=== PATIENT | female | born 1940 | race Caucasian/White ===

== ENCOUNTER 2017-09-18 06:24 | Observation (INO) | payer MEDICARE, BC ==
[2017-09-17 09:30] VITALS: BMI 26.2
[2017-09-18] MEDS ORDERED: PROPOFOL 20 ML ONE (07:13)
[2017-09-18] MEDS ORDERED: PROPOFOL 200 MG/20 ML VIAL ONE (12:02)
[2017-09-18] MEDS ORDERED: Furosemide 40 MG TAB PO PRN (14:11)
[2017-09-18] MEDS ORDERED: Loratadine 10 MG TAB PO PRN (14:11)
[2017-09-18] MEDS ORDERED: PROVENTIL INHALER 6.7 G (200 INHALATIONS) INH PRN (14:12)
--- NOTE | 2017-09-18 16:20 | EKG ---
Test Reason : POST CARDIOVERSION Blood Pressure : / mmHG Vent. Rate : 042 BPM Atrial Rate : 042 BPM P-R Int : 190 ms QRS Dur : 106 ms QT Int : 466 ms P-R-T Axes : 079 -44 045 degrees QTc Int : 389 ms Marked sinus bradycardia with Premature atrial complexes Left axis deviation Non-specific intra-ventricular conduction delay Nonspecific T wave abnormality Abnormal ECG Confirmed by ANANYA MERAZ ([id number]) on 09/18/2017 4:19:38 PM Referred By: JAYSON Confirmed By:ANANYA MERAZ
[2017-09-18] MEDS ORDERED: Rivaroxaban 10 MG TAB PO SCH (17:00)
[2017-09-18] MEDS ORDERED: INTEGRA PO SCH (21:00)
[2017-09-18] MEDS ORDERED: Gabapentin 300 MG CAP PO SCH (21:00)
[2017-09-19 04:17] VITALS: TEMP 98
[2017-09-19 08:18] VITALS: BP 127/67
[2017-09-19] MEDS ORDERED: Amiodarone 200 MG TAB PO SCH (09:00)
--- NOTE | 2017-09-20 13:51 | OP ---
PREPROCEDURE DIAGNOSIS: Atrial fibrillation. POSTPROCEDURE DIAGNOSIS: Sinus bradycardia. PROCEDURE: Successful synchronized cardioversion. DESCRIPTION OF PROCEDURE: The patient was sedated with propofol. The consent was discussed in the o ffice. Successful synchronized cardioversion was performed at 150 joules. IMPRESSION: 1. Successful synchronized cardioversion. 2. Patient did develop bradycardia and will be observed in the outpatient area.
--- NOTE | 2017-09-23 00:45 | DIS ---
DATE OF ADMISSION: 09/18/2017 DATE OF DISCHARGE: 09/19/2017 ADMITTING PHYSICIAN: Dr. Wilson. CONSULTING PHYSICIANS: None. REASON FOR ADMISSION: Persistent atrial fibrillation. FINAL DIAGNOSES: 1. Persistent atrial fibrillation. 2. Bradycardia. PROCEDURES: Cardioversion. DISCHARGE MEDICATIONS: 1. Albuterol sulfate 2 puffs q.6 hours as needed. 2. Amiodarone 200 mg every day. 3. Lasix 40 mg p.r.n. 4. Neurontin 300 mg at bedtime. 5. Claritin 10 mg p.r.n. 6. Protonix 40 mg daily. 7. Xarelto 20 mg daily. HOSPITAL COURSE: Ms. Tellez was admitted on 09/18/2017 to undergo elective cardioversion for atri al fibrillation. She was shocked once and postoperatively had bradycardia. She was admitted to [facility] overnight for monitoring. She had heart rates in the 40s and 50s overnight and her beta bloc kers were held up in her amiodarone. At the time of discharge, her heart rate was 50 beats per minut e and accelerating whenever she got out of bed. She was discharged in stable cardiac status with an event monitor and instructed to follow up in the office in 2-3 weeks. The patient understood and agr eed to plan of care.
== END 2017-09-19 12:20 | disposition home or self-care (01) ==
LOC: CCL 06:24 → 2SW 13:51
PROVIDERS: ADMIT Internal Medicine Cardiovascular Disease; ATTEND Internal Medicine Cardiovascular Disease
PROC: 5A2204Z Restoration of Cardiac Rhythm, Single (ICD-10-PCS; principal; 2017-09-18)
DX: I48.1 Persistent atrial fibrillation (principal); Z87.891 Personal history of nicotine dependence; Z82.49 Family history of ischemic heart disease and other diseases of the circulatory system
CPT/HCPCS: 92960; 93005; G0378; 93010; A4216; J2704

== ENCOUNTER 2019-02-27 13:03 | Inpatient (IN) | payer MEDICARE, BC ==
[2019-02-27] MEDS ORDERED: Ondansetron PF 4 MG/2 ML Vial SLOW IVP PRN (13:53)
[2019-02-27] MEDS ORDERED: Milk Of Magnesia 30 ML UDCUP PO PRN (13:53)
[2019-02-27] MEDS ORDERED: Diltiazem HCl 125 MG, Admixture Fee 1 EACH in Sodium Chloride 0.9% 100 ML IVPB SCH (14:00)
[2019-02-27] MEDS ORDERED: Furosemide 40 MG/4 ML VIAL SLOW IVP SCH (14:00)
[2019-02-27] MEDS: Famotidine 20 MG TAB PO SCH (20:27)
[2019-02-27] MEDS ORDERED: Famotidine/PF 20 mg/2ml Vial SLOW IVP SCH (21:00)
[2019-02-28 04:11] LABS: ALT (SGPT) 19 U/L (8-55); AST (SGOT) 10 U/L (5-34); Albumin 3.2 g/dL (3.4-4.8); Alkaline Phosphatase 93 U/L (40-110); Anion Gap 11 mmol/L (10-20); BUN (Urea Nitrogen) 8 mg/dL (9.8-20.1); Bilirubin, Total 0.4 mg/dL (0.2-1.2); Calc. Creatinine Clearance 80 mL/min (70-130); Calcium 9.4 mg/dL (7.8-10.44); Carbon Dioxide 33 mmol/L (23-31); Chloride 93 mmol/L (98-107); Estimated GFR-MDRD Greater than 90; Globulin 2.9 g/dL (2.4-3.5); Glucose 168 mg/dL (83-110); Potassium 3.6 mmol/L (3.5-5.1); Protein, Total 6.1 g/dL (6.0-8.3); Sodium 133 mmol/L (136-145)
[2019-02-28 04:32] LABS: #Eosinphils 0.1 thou/uL (0.0-0.7); #Lymphocytes 0.9 thou/uL (1.20-3.40); #Monocytes 0.5 thou/uL (0.11-0.59); #Neutrophils 4.2 thou/uL (1.40-6.50); %Basophils 0.1 % (0.0-1.0); %Lymphocytes 15.8 % (21.0-51.0); %Monocytes 8.4 % (0.0-10.0); %Neutrophils 74.7 % (42.0-75.0); Hemoglobin 14.7 g/dL (12.0-16.0); Mean Corpuscular HGB CONC 32.3 g/dL (32.0-36.0); Mean Corpuscular Hemoglobin 28.2 pg (27.0-31.0); Mean Corpuscular Volume 87.3 fL (78.0-98.0); Mean Platelet Volume 12.8 fL (7.4-10.4); Platelet Count 81 thou/uL (130-400); Platelet Morphology Comment Appears Decreased; RBC Distribution Width 12.7 % (11.5-14.5); White Blood Cell (WBC) Count 5.6 thou/uL (4.8-10.8)
[2019-02-28] MEDS: Famotidine 20 MG TAB PO SCH ×2 (08:19→20:28)
[2019-02-28] MEDS ORDERED: FLU VACC TS2019-20(65YR UP)/PF 180 MCG/0.5 ML SYRINGE IM ONE (09:00)
[2019-02-28] MEDS: Furosemide 40 MG/4 ML VIAL SLOW IVP SCH ×2 (09:47→13:41)
[2019-02-28] MEDS: Gabapentin 300 MG CAP PO SCH (09:47)
--- NOTE | 2019-02-28 10:11 | PDOC.CPN ---
- Subjective Date: 02/28/19 Time: 10:10 Interval history: Still SOB with orthopnea and cough. Edema improved. - Review of Systems General: denies: fever/chills, weight/appetite/sleep changes, night sweats, fatigue Respiratory: reports: cough, congestion, shortness of breath, exercise intolerance Cardiovascular: reports: orthopnea. denies: chest pain, palpitation, edema, paroxysmal nocturnal dyspnea Gastrointestinal: denies: nausea, vomiting, diarrhea, constipation, abd pain, GI bleeding Musculoskeletal: denies: pain, tenderness, stiffness, swelling, arthritis/ arthralgias Neurological: denies: numbness, syncope, seizure, weakness - Objective Allergies/Adverse Reactions: Allergies Allergy/AdvReac Type Severity Reaction Status Date / Time No Known Allergies Allergy Verified 02/27/19 14:17 Visit Medications: Current Medications Diltiazem HCl (Cardizem) 60 mg PO Q6H [facility] Last Admin: 02/28/19 09:47 Dose: 60 mg Famotidine (Pepcid) 20 mg PO BID [facility] Last Admin: 02/28/19 08:19 Dose: 20 mg Furosemide (Lasix) 40 mg SLOW IVP 0900,1400 [facility] Last Admin: 02/28/19 09:47 Dose: 40 mg Gabapentin (Neurontin) 300 mg PO QAM [facility] Last Admin: 02/28/19 09:47 Dose: 300 mg Diltiazem HCl 125 mg/ Sodium (Chloride) 125 mls @ 2.5 mls/hr IVPB INF [facility]; Protocol Magnesium Hydroxide (Milk Of Magnesium) 30 ml PO DAILYPRN PRN PRN Reason: Constipation Ondansetron HCl (Zofran) 4 mg SLOW IVP Q6H PRN PRN Reason: Nausea/Vomiting Rivaroxaban (Xarelto) 20 mg PO 0600 [facility] Sodium Chloride (Flush - Normal Saline) 10 ml IVF Q12HR [facility] Last Admin: 02/28/19 09:48 Dose: 10 ml Sodium Chloride (Flush - Normal Saline) 10 ml IVF PRN PRN PRN Reason: Saline Flush Vital Signs & Weight: Vital Signs Temp Pulse Resp BP Pulse Ox 02/28/19 08:00 97.7 F 86 20 110/70 93 L 02/28/19 03:37 97.4 F L 75 18 143/60 H 94 L 02/28/19 00:00 87 121/57 L Weight 152 lb - Physical Exam General: alert & oriented x3, no apparent distress HEENT: mucus membranes moist Neck: supple neck Cardiac: other (IRR IRR) Lungs: other (no wheezes; decreased BS and dull to bases bilaterally) Neuro: grossly intact Abdomen: unremarkable Extremities: other: (3+ bilateral BENNY) Skin: clear Musculoskeletal: no pain - Labs Result Diagrams: 02/28/19 03:26 02/28/19 03:26 - Telemetry Supraventricular conduction: atrial fibrillation - Assessment/Plan Assessment/Plan: 1. Persistent AF 2. Hx bradycardia post-DCCV 3. Recent atypical PNA 4. Acute on chronic diastolic CHF Continue diuresis. Recent ECHO done at [facility] with normal EF and diastolic dysfunction. Rate-control AF. Will consider repeat cardioversion as outpatient once respiratory status more stable. RG Pt seen and examined Doing better Plan is to wean off IV CCB and iuncrease PO CCB If still with symptoms, consider CV but may need pacer if CV done given previous bradycardia on amio and CCB
--- NOTE | 2019-02-28 12:26 | RAD ---
EXAM: Two views chest PROVIDED CLINICAL HISTORY: Cough due to bronchospasm COMPARISON: 02/02/2019. FINDINGS: There is consolidation seen at the right lung base which has increased when compared to the prior exa m. These findings are seen within the right lower lobe as well as involving the right middle lobe and may be related to multifocal pneumonia. This does obscure the right cardiac border. The left lung is clear. Pulmonary vasculature is within normal limits.. The osseous structures have a normal appearance. Vascular calcifications are seen in the thoracic aorta. IMPRESSION: Worsening parenchymal opacity in the right lower lobe and right middle lobe with consolidation noted on today's exam. These findings may be related to multifocal pneumonia. Follow-up to complete resolution is recommended..
[2019-03-01] MEDS: Rivaroxaban 10 MG TAB PO SCH (05:55)
[2019-03-01] MEDS: Famotidine 20 MG TAB PO SCH ×2 (10:31→20:20)
[2019-03-01] MEDS: Furosemide 40 MG/4 ML VIAL SLOW IVP SCH ×2 (10:32→14:11)
[2019-03-01] MEDS: Gabapentin 300 MG CAP PO SCH (10:32)
[2019-03-01] MEDS ORDERED: Potassium Chloride 20 MEQ TAB PO SCH (10:45)
--- NOTE | 2019-03-01 11:32 | PDOC.CPN ---
- Subjective Date: 03/01/19 Time: 11:30 - Review of Systems General: denies: fever/chills, weight/appetite/sleep changes, night sweats, fatigue Respiratory: reports: shortness of breath, exercise intolerance. denies: cough , congestion Cardiovascular: reports: edema, orthopnea Gastrointestinal: denies: nausea, vomiting, diarrhea, constipation, abd pain, GI bleeding Musculoskeletal: denies: pain, tenderness, stiffness, swelling, arthritis/ arthralgias Neurological: denies: numbness, syncope, seizure, weakness - Objective Allergies/Adverse Reactions: Allergies Allergy/AdvReac Type Severity Reaction Status Date / Time No Known Allergies Allergy Verified 02/27/19 14:17 Visit Medications: Current Medications Diltiazem HCl (Cardizem) 60 mg PO Q6H [facility] Last Admin: 03/01/19 10:33 Dose: 60 mg Famotidine (Pepcid) 20 mg PO BID [facility] Last Admin: 03/01/19 10:31 Dose: 20 mg Furosemide (Lasix) 40 mg SLOW IVP 0900,1400 [facility] Last Admin: 03/01/19 10:32 Dose: 40 mg Gabapentin (Neurontin) 300 mg PO QAM [facility] Last Admin: 03/01/19 10:32 Dose: 300 mg Cefepime HCl 2 gm/ Sodium (Chloride) 100 mls @ 200 mls/hr IVPB Q12HR [facility] Magnesium Hydroxide (Milk Of Magnesium) 30 ml PO DAILYPRN PRN PRN Reason: Constipation Ondansetron HCl (Zofran) 4 mg SLOW IVP Q6H PRN PRN Reason: Nausea/Vomiting Potassium Chloride (K-Dur) 20 meq PO NOW [facility] Stop: 03/01/19 13:00 Rivaroxaban (Xarelto) 20 mg PO 0600 [facility] Last Admin: 03/01/19 05:55 Dose: 20 mg Sodium Chloride (Flush - Normal Saline) 10 ml IVF Q12HR [facility] Last Admin: 03/01/19 10:34 Dose: 10 ml Sodium Chloride (Flush - Normal Saline) 10 ml IVF PRN PRN PRN Reason: Saline Flush Vital Signs & Weight: Vital Signs Temp Pulse Resp BP Pulse Ox 03/01/19 07:26 97.4 F L 77 20 115/56 L 94 L 03/01/19 03:07 98.1 F 83 16 126/61 95 03/01/19 00:00 82 116/62 Admit Weight 152 lb 8.958 oz Weight 147 lb 14.883 oz - Physical Exam General: alert & oriented x3, appears well HEENT: mucus membranes moist Neck: supple neck Cardiac: irregularly regular Lungs: no wheezes, decreased breath sounds Neuro: grossly intact Abdomen: unremarkable, soft Extremities: 2+ LE edema Skin: clear - Labs Result Diagrams: 02/28/19 03:26 02/28/19 03:26 - Telemetry Supraventricular conduction: atrial fibrillation - Assessment/Plan Assessment/Plan: 1. Persistent AF 2. Hx bradycardia post-DCCV 3. Recent atypical PNA 4. Acute on chronic diastolic CHF Still volume overloaded. Continue diuresis. Replace K+. CT chest pending. Off cardizem gtt. Rate-controlled. RG Spoke with Dr. Yates Adding Abx CRate well controlled on lasix Decrease in am
--- NOTE | 2019-03-01 12:14 | CT ---
NONCONTRAST CT THORAX: Date: 03/01/19 HISTORY: Right lower lobe pneumonia. Patient with productive cough. COMPARISON: Chest x-ray on 02/28/19. FINDINGS: There is a small to moderate size right pleural effusion. There is also a dense area of consolidation involving the right lower lobe with patchy parenchymal densities also seen in the right lower lobe a nd in the right middle lobe suggesting pneumonia. Mild interstitial thickening is also present in the right lower lobe and right middle lobe. Minimal linear densities are seen in the right upper lobe, p robably related to atelectasis. There is linear density present in the left upper lobe which may be related to mild scarring or atele ctasis. No consolidation or pleural fluid is seen on the left. There are enlarged mediastinal lymph nodes. The largest precarinal lymph node measures 1.8 cm in shor t axis dimension with large conglomeration of lymph nodes in the subcarinal location measuring approx imately 2.5 cm. These findings may be attributable to reactive lymphadenopathy. There is mild peribronchial thickening involving the right lower lobe and right middle lobe bronchi w ith decreased density material seen within right middle lobe bronchi. Vascular calcifications are seen in the coronal arteries and involving the abdominal aorta. There is a fat-containing hernia seen in the midline epigastric region. Remainder of the upper abdomen suggests a grossly normal nonenhanced CT appearance. Degenerative changes are seen in the spine. IMPRESSION: 1. Multifocal pneumonia with dense area of consolidation involving the right lower lobe, as well as the right middle lobe, with suggestion of partial collapse of the right middle lobe. There is also pe ribronchial thickening and a small amount of debris within right middle lobe and right lower lobe bro nchi. 2. Small to moderate sized right pleural effusion. 3. Mediastinal and likely right hilar lymphadenopathy, which is probably reactive in origin. 4. Follow-up evaluation is recommended to ensure complete resolution of the areas of consolidation a nd presumed multifocal pneumonia, and to exclude underlying neoplastic process. 5. Small ventral epigastric midline fat-containing hernia. POS: OFF
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
[2019-03-01] MEDS: Cefepime 2 GM in Sodium Chloride 0.9% 100 ML IVPB SCH (20:20)
[2019-03-02 05:51] LABS: Anion Gap 8 mmol/L (10-20); BUN (Urea Nitrogen) 9 mg/dL (9.8-20.1); Calc. Creatinine Clearance 78 mL/min (70-130); Calcium 9.2 mg/dL (7.8-10.44); Carbon Dioxide 34 mmol/L (23-31); Chloride 91 mmol/L (98-107); Estimated GFR-MDRD Greater than 90; Glucose 169 mg/dL (83-110); Potassium 3.4 mmol/L (3.5-5.1); Sodium 130 mmol/L (136-145)
[2019-03-02] MEDS: Rivaroxaban 10 MG TAB PO SCH (06:17)
--- NOTE | 2019-03-02 06:29 | PDOC.CPN ---
- Objective Allergies/Adverse Reactions: Allergies Allergy/AdvReac Type Severity Reaction Status Date / Time No Known Allergies Allergy Verified 02/27/19 14:17 Visit Medications: Current Medications Diltiazem HCl (Cardizem) 60 mg PO Q6H [facility] Last Admin: 03/02/19 03:38 Dose: 60 mg Famotidine (Pepcid) 20 mg PO BID [facility] Last Admin: 03/01/19 20:20 Dose: 20 mg Furosemide (Lasix) 40 mg SLOW IVP 0900,1400 [facility] Last Admin: 03/01/19 14:11 Dose: 40 mg Gabapentin (Neurontin) 300 mg PO QAM [facility] Last Admin: 03/01/19 10:32 Dose: 300 mg Cefepime HCl 2 gm/ Sodium (Chloride) 100 mls @ 200 mls/hr IVPB Q12HR [facility] Last Admin: 03/01/19 20:20 Dose: 100 mls Magnesium Hydroxide (Milk Of Magnesium) 30 ml PO DAILYPRN PRN PRN Reason: Constipation Ondansetron HCl (Zofran) 4 mg SLOW IVP Q6H PRN PRN Reason: Nausea/Vomiting Rivaroxaban (Xarelto) 20 mg PO 0600 [facility] Last Admin: 03/02/19 06:17 Dose: 20 mg Sodium Chloride (Flush - Normal Saline) 10 ml IVF Q12HR [facility] Last Admin: 03/01/19 20:21 Dose: 10 ml Sodium Chloride (Flush - Normal Saline) 10 ml IVF PRN PRN PRN Reason: Saline Flush Vital Signs & Weight: Vital Signs Temp Pulse Resp BP Pulse Ox 03/02/19 03:41 97.9 F 88 16 112/71 95 03/01/19 19:40 98.1 F 95 18 130/55 L 96 Admit Weight 152 lb 8.958 oz Weight 147 lb 0.773 oz - Physical Exam General: alert & oriented x3 HEENT: normocephaly Neck: no masses, no bruit Cardiac: irregularly regular Lungs: bibasilar rales Neuro: grossly intact Extremities: no edema Skin: rash Musculoskeletal: no pain - Labs Result Diagrams: 02/28/19 03:26 03/02/19 05:18 - Assessment/Plan Assessment/Plan: pneumonia afib Acute on chronic diastolic dysfunction Pt is rate controlled on BB off IV CCB Continue CCB, NOAC (Ptls >50K) Appreciate Dr. Yates input Added Abx Continue diuresis Monitor Na
[2019-03-02] MEDS ORDERED: Potassium Chloride 20 MEQ TAB PO SCH (08:45)
[2019-03-02] MEDS ORDERED: Metolazone 5 MG TAB PO SCH (08:45)
[2019-03-02] MEDS: Famotidine 20 MG TAB PO SCH ×2 (08:58→20:39)
[2019-03-02] MEDS: Gabapentin 300 MG CAP PO SCH (08:58)
[2019-03-02] MEDS: Cefepime 2 GM in Sodium Chloride 0.9% 100 ML IVPB SCH ×2 (08:58→20:39)
[2019-03-02] MEDS: Furosemide 40 MG/4 ML VIAL SLOW IVP SCH ×2 (08:59→14:28)
--- NOTE | 2019-03-02 10:06 | PRG ---
DATE OF SERVICE: 03/02/2019 SUBJECTIVE: This morning, she said she is somewhat better. CT showed extensive right-sided pneumonia, pleural effusion, masslike density, mediastinal adenopathy nonspecific. She started on Maxipime. For pneumonia, she was in [facility] for a week on antibiotics. OBJECTIVE: VITAL SIGNS: Temperature 98, pulse 79, respiratory rate 20, and blood pressure 112/56. CHEST: Decreased breath sounds. No wheezing. CARDIAC: Normal S1 and S2. No gallops. ABDOMEN: No masses. ASSESSMENT: 1. Right lung pneumonia, pleural effusion, masslike density. Continue antibiotics. I am concerned she may have some underlying process. 2. I have added low-dose prednisone. She may require a bronchoscopy. 3. We will follow. Job ID: [id number]
[2019-03-02] MEDS ORDERED: Lidocaine 4% PF 5 ML AMP NEB SCH (10:30)
[2019-03-02] MEDS: Sodium Chloride 0.9% 1,000 ML IV SCH (11:44)
--- NOTE | 2019-03-03 05:26 | PDOC.CPN ---
- Subjective Date: 03/02/19 Time: 08:40 - Review of Systems General: denies: fever/chills, weight/appetite/sleep changes, night sweats, fatigue Respiratory: reports: cough, congestion, exercise intolerance Cardiovascular: denies: chest pain, palpitation, edema, paroxysmal nocturnal dyspnea, orthopnea Gastrointestinal: denies: nausea, vomiting, diarrhea, constipation, abd pain, GI bleeding Musculoskeletal: denies: pain, tenderness, stiffness, swelling, arthritis/ arthralgias Neurological: denies: numbness, syncope, seizure, weakness - Objective Allergies/Adverse Reactions: Allergies Allergy/AdvReac Type Severity Reaction Status Date / Time No Known Allergies Allergy Verified 02/27/19 14:17 Visit Medications: Current Medications Albuterol/Ipratropium (Duoneb) 3 ml [facility] Diltiazem HCl (Cardizem) 60 mg PO Q6H [facility] Last Admin: 03/03/19 03:14 Dose: 60 mg Famotidine (Pepcid) 20 mg PO BID [facility] Last Admin: 03/02/19 20:39 Dose: 20 mg Furosemide (Lasix) 40 mg SLOW IVP 0900,1400 [facility] Last Admin: 03/02/19 14:28 Dose: 40 mg Gabapentin (Neurontin) 300 mg PO QAM [facility] Last Admin: 03/02/19 08:58 Dose: 300 mg Cefepime HCl 2 gm/ Sodium (Chloride) 100 mls @ 200 mls/hr IVPB Q12HR [facility] Last Admin: 03/02/19 20:39 Dose: 100 mls Sodium Chloride (Normal Saline 0.9%) 1,000 mls @ 50 mls/hr IV .Q20H [facility] Last Admin: 03/02/19 11:44 Dose: 1,000 mls Lidocaine HCl (Xylocaine 4% Pf) 5 ml [facility] Magnesium Hydroxide (Milk Of Magnesium) 30 ml PO DAILYPRN PRN PRN Reason: Constipation Ondansetron HCl (Zofran) 4 mg SLOW IVP Q6H PRN PRN Reason: Nausea/Vomiting Prednisone (Prednisone) 20 mg PO QAM[facility] Rivaroxaban (Xarelto) 20 mg PO 0600 [facility] Last Admin: 03/02/19 06:17 Dose: 20 mg Sodium Chloride (Flush - Normal Saline) 10 ml IVF Q12HR [facility] Last Admin: 03/02/19 20:51 Dose: 10 ml Sodium Chloride (Flush - Normal Saline) 10 ml IVF PRN PRN PRN Reason: Saline Flush Vital Signs & Weight: Vital Signs Temp Pulse Resp BP Pulse Ox 03/03/19 03:57 97.7 F 91 18 118/61 96 03/03/19 00:00 98.1 F 80 18 116/61 94 L 03/02/19 20:05 97.7 F 88 18 126/62 94 L Admit Weight 152 lb 8.958 oz Weight 147 lb 0.773 oz - Physical Exam General: alert & oriented x3, appears well HEENT: mucus membranes moist Neck: supple neck Cardiac: other (IRR IRR) Lungs: clear to auscultation Neuro: grossly intact Abdomen: soft, non-tender Extremities: 2+ LE edema Skin: clear Musculoskeletal: normal range of motion - Labs Result Diagrams: 02/28/19 03:26 03/02/19 05:18 - Telemetry Supraventricular conduction: atrial fibrillation - Assessment/Plan Assessment/Plan: 1. Persistent AF 2. Hx bradycardia post-DCCV 3. Recent atypical PNA 4. Acute on chronic diastolic CHF Patient with good output. Rate-controlled. Will give zaroxolyn x 1 today (03/02) . Labs in AM. ? home in 24-48 hours.
--- NOTE | 2019-03-03 06:24 | PDOC.CPN ---
- Objective Allergies/Adverse Reactions: Allergies Allergy/AdvReac Type Severity Reaction Status Date / Time No Known Allergies Allergy Verified 02/27/19 14:17 Visit Medications: Current Medications Albuterol/Ipratropium (Duoneb) 3 ml [facility] Diltiazem HCl (Cardizem Cd) 240 mg PO DAILY [facility] Famotidine (Pepcid) 20 mg PO BID [facility] Last Admin: 03/02/19 20:39 Dose: 20 mg Furosemide (Lasix) 40 mg PO DAILY-[facility] Gabapentin (Neurontin) 300 mg PO QAM [facility] Last Admin: 03/02/19 08:58 Dose: 300 mg Cefepime HCl 2 gm/ Sodium (Chloride) 100 mls @ 200 mls/hr IVPB Q12HR [facility] Last Admin: 03/02/19 20:39 Dose: 100 mls Sodium Chloride (Normal Saline 0.9%) 1,000 mls @ 50 mls/hr IV .Q20H [facility] Last Admin: 03/02/19 11:44 Dose: 1,000 mls Lidocaine HCl (Xylocaine 4% Pf) 5 ml [facility] Magnesium Hydroxide (Milk Of Magnesium) 30 ml PO DAILYPRN PRN PRN Reason: Constipation Ondansetron HCl (Zofran) 4 mg SLOW IVP Q6H PRN PRN Reason: Nausea/Vomiting Prednisone (Prednisone) 20 mg PO QAM-[facility] Rivaroxaban (Xarelto) 20 mg PO 0600 [facility] Last Admin: 03/02/19 06:17 Dose: 20 mg Sodium Chloride (Flush - Normal Saline) 10 ml IVF Q12HR [facility] Last Admin: 03/02/19 20:51 Dose: 10 ml Sodium Chloride (Flush - Normal Saline) 10 ml IVF PRN PRN PRN Reason: Saline Flush Vital Signs & Weight: Vital Signs Temp Pulse Resp BP Pulse Ox 03/03/19 03:57 97.7 F 91 18 118/61 96 03/03/19 00:00 98.1 F 80 18 116/61 94 L 03/02/19 20:05 97.7 F 88 18 126/62 94 L Admit Weight 152 lb 8.958 oz Weight 147 lb 0.773 oz - Physical Exam General: alert & oriented x3, appears well HEENT: normocephaly Neck: no masses, no bruit Cardiac: regular rate, irregularly regular Lungs: normal exam, no wheezes, no rales Neuro: grossly intact Abdomen: soft Extremities: no clubbing, no edema Skin: rash - Labs Result Diagrams: 02/28/19 03:26 03/02/19 05:18 - Assessment/Plan Assessment/Plan: 1. Persistent AF 2. Hx bradycardia post-DCCV 3. Recent atypical PNA 4. Acute on chronic diastolic CHF Rate cotnrolled on CCB On eliquis ?bronch as op or inpatient Will discuss with Dr. Le bell CV recommendations Once ok from pulmanry standpoint, can DC windy with OP fu
[2019-03-03] MEDS: Rivaroxaban 10 MG TAB PO SCH (06:31)
[2019-03-03] MEDS: Sodium Chloride 0.9% 1,000 ML IV SCH (06:31)
[2019-03-03 06:52] LABS: #Eosinphils 0.1 thou/uL (0.0-0.7); #Lymphocytes 0.7 thou/uL (1.20-3.40); #Monocytes 0.6 thou/uL (0.11-0.59); #Neutrophils 4.1 thou/uL (1.40-6.50); %Eosinophils 1.5 % (0.0-10.0); %Lymphocytes 13.1 % (21.0-51.0); %Monocytes 10.8 % (0.0-10.0); %Neutrophils 74.6 % (42.0-75.0); Hemoglobin 14.3 g/dL (12.0-16.0); Mean Corpuscular HGB CONC 32.6 g/dL (32.0-36.0); Mean Corpuscular Hemoglobin 27.8 pg (27.0-31.0); Mean Corpuscular Volume 85.3 fL (78.0-98.0); Mean Platelet Volume 13.2 fL (7.4-10.4); Platelet Count 72 thou/uL (130-400); RBC Distribution Width 12.6 % (11.5-14.5); Red Blood Cell (RBC) Count 5.14 mill/uL (4.20-5.40); White Blood Cell (WBC) Count 5.5 thou/uL (4.8-10.8)
[2019-03-03 06:54] LABS: Anion Gap 14 mmol/L (10-20); BUN (Urea Nitrogen) 10 mg/dL (9.8-20.1); Calc. Creatinine Clearance 74 mL/min (70-130); Calcium 9.2 mg/dL (7.8-10.44); Carbon Dioxide 30 mmol/L (23-31); Chloride 87 mmol/L (98-107); Estimated GFR-MDRD 88; Glucose 184 mg/dL (83-110); Potassium 3.2 mmol/L (3.5-5.1); Sodium 128 mmol/L (136-145)
[2019-03-03] MEDS ORDERED: Benzocaine 20% Spray 60 ML CAN ONE (07:26)
[2019-03-03] MEDS ORDERED: Fentanyl 100 MCG/2 ML VIAL ONE (07:26)
[2019-03-03] MEDS ORDERED: Midazolam HCl 2 mg/2 ml Vial ONE (07:26)
[2019-03-03] MEDS ORDERED: Lidocaine 1% (PF) 30 ML VIAL ONE (08:45)
[2019-03-03] MEDS: Cefepime 2 GM in Sodium Chloride 0.9% 100 ML IVPB SCH ×2 (09:57→20:49)
[2019-03-03] MEDS: Furosemide 40 MG TAB PO SCH (09:58)
[2019-03-03] MEDS: predniSONE 20 MG TAB PO SCH (09:58)
[2019-03-03] MEDS: Gabapentin 300 MG CAP PO SCH (09:59)
[2019-03-03] MEDS: Famotidine 20 MG TAB PO SCH ×2 (09:59→20:49)
--- NOTE | 2019-03-03 10:50 | PRG ---
DATE OF SERVICE: 03/03/2019 SUBJECTIVE: Status post bronchoscopy. OBJECTIVE: VITAL SIGNS: Temperature 98, blood pressure 136/65, saturations 95% on 2 L, respiratory rate 18. I's and O's negative. Cultures negative. Bronchoscopy revealed rather a marked abnormality. The right lower lobe bronchus with rather thickened nodular mucosa with marked narrowing of all the subsegments. Etiology unclear. Multiple brushings obtained. No biopsies obtained because she is on Xarelto and she bled. IMPRESSION: Right lower lobe pneumonia, etiology unclear. Rule out CA, congestive heart failure, advanced age. Continue supportive care, PT. Switch over to oral antibiotics. We will follow. Job ID: [id number]
[2019-03-03 10:55] LABS: Hemoglobin 14.1 g/dL (12.0-16.0); Platelet Count 70 thou/uL (130-400)
[2019-03-03] MEDS ORDERED: EPINEPHrine 1 MG/10 ML Abboject SYRINGE ONE (11:08)
--- NOTE | 2019-03-03 12:26 | OP ---
DATE OF PROCEDURE: 03/03/2019 INDICATION: Persistent right lower infiltrate, rule out malignancy, rule out TB, fungus, pneumonia. POSTBRONCHOSCOPY DIAGNOSES: Persistent right lower infiltrate, rule out malignancy, rule out TB, fungus, pneumonia. DESCRIPTION OF PROCEDURE: After informed consent, the patient received nebulized 4 mL of 4% lidocaine along with DuoNeb. During the procedure, she received 2 of Versed and 50 of fentanyl. The right nostril was prepped with 1% lidocaine jelly. The flexible Olympus video bronchoscope was passed via the right nostril. Pharynx, hypopharynx and vocal cords visualized which are unremarkable into the trachea. Kari was sharp. The right upper lung had marked narrowing of the upper lobe segments. The bronchus intermedius was narrowed and thickened. The basilar segments were all markedly narrowed and thickened with edematous submucosa. The mucosa was somewhat nodular and irregular. No bleeding was seen. The superior segment was occluded so was the right lower lobe posterior basilar segment was unable to visualize the subsegments. The area in the right lower lobe bled to touch. This area was lavaged with normal saline total of 50 mL. The left lung was inspected. The left upper, left lower lobe, no endobronchial obstruction, blood, or pus seen. Following this, brushings from the abnormal nodular thickened mucosa was done from two segments, the superior segment of the right lower lobe as well as the right lower lobe posterior basilar segments. There was some bleeding which was controlled with instillation of epinephrine, a total of 4 mL of 1:10,000. The patient otherwise tolerated the procedure well. Washing was sent for cytology. AFB smear and culture, fungal smear and culture, routine Gram stain, C and S. The patient tolerated the procedure well. Results will be made available to the patient and family. Further recommendation after above. Job ID: [id number]
[2019-03-04] MEDS: Rivaroxaban 10 MG TAB PO SCH (05:47)
[2019-03-04] MEDS: Famotidine 20 MG TAB PO SCH ×2 (08:45→19:57)
[2019-03-04] MEDS: predniSONE 20 MG TAB PO SCH (08:45)
[2019-03-04] MEDS: Furosemide 40 MG TAB PO SCH (08:46)
[2019-03-04] MEDS: Gabapentin 300 MG CAP PO SCH (08:46)
[2019-03-04] MEDS: Cefepime 2 GM in Sodium Chloride 0.9% 100 ML IVPB SCH (08:47)
[2019-03-04] MEDS ORDERED: Potassium Chloride 20 MEQ TAB PO SCH (09:00)
--- NOTE | 2019-03-04 10:55 | PRG ---
DATE OF SERVICE: 03/04/2019 SUBJECTIVE: This morning, she is awake, alert, and responsive. She still got a cough. OBJECTIVE: VITAL SIGNS: Sats are 98% on room air, temperature 97, and pulse 122. CHEST: Decreased breath sounds. Minimal rhonchi in the right base. CARDIAC: Normal S1 and S2. No gallops. ABDOMEN: No masses. IMPRESSION AND PLAN: Right-sided infiltrate, pleural effusion, status post bronch. Await results of the bronch. Switch to p.o. antibiotics. Further recommendation as above. Hopefully home in the next several days. Job ID: [id number]
--- NOTE | 2019-03-04 12:00 | RAD ---
PA AND LATERAL VIEWS CHEST: Date: 03/04/19 HISTORY: CHF. Pneumonia. FINDINGS: Comparison made with exam of 02/28/19. The heart size is normal. The left lung is clear. Patchy consolidation in the right middle and lower lung lobes is again noted with probable small effusion. No cavitation is seen. No pneumothoraces are identified. IMPRESSION: Stable right-sided pneumonia. POS: [facility]
--- NOTE | 2019-03-04 15:03 | PDOC.CPN ---
- Subjective Date: 03/04/19 Time: 08:40 Interval history: Patient with c/o heavy diuresis. Pulse rate mildly elevated this AM. Patient was asymptomatic with it. - Review of Systems General: denies: fever/chills, weight/appetite/sleep changes, night sweats, fatigue Respiratory: reports: cough, congestion, shortness of breath, exercise intolerance Cardiovascular: denies: chest pain, palpitation, edema, paroxysmal nocturnal dyspnea, orthopnea Gastrointestinal: denies: nausea, vomiting, diarrhea, constipation, abd pain, GI bleeding Musculoskeletal: denies: pain, tenderness, stiffness, swelling, arthritis/ arthralgias Neurological: denies: numbness, syncope, seizure, weakness - Objective Allergies/Adverse Reactions: Allergies Allergy/AdvReac Type Severity Reaction Status Date / Time No Known Allergies Allergy Verified 02/27/19 14:17 Visit Medications: Current Medications Albuterol/Ipratropium (Duoneb) 3 ml NEB [facility] Cefdinir (Omnicef) 300 mg PO BID [facility] Stop: 03/09/19 21:01 Diltiazem HCl (Cardizem Cd) 240 mg PO DAILY [facility] Last Admin: 03/04/19 08:46 Dose: 240 mg Famotidine (Pepcid) 20 mg PO BID [facility] Last Admin: 03/04/19 08:45 Dose: 20 mg Gabapentin (Neurontin) 300 mg PO QAM [facility] Last Admin: 03/04/19 08:46 Dose: 300 mg Lidocaine HCl (Xylocaine 4% Pf) 5 ml NEB [facility] Magnesium Hydroxide (Milk Of Magnesium) 30 ml PO DAILYPRN PRN PRN Reason: Constipation Ondansetron HCl (Zofran) 4 mg SLOW IVP Q6H PRN PRN Reason: Nausea/Vomiting Prednisone (Prednisone) 20 mg PO QAM-WM [facility] Last Admin: 03/04/19 08:45 Dose: 20 mg Rivaroxaban (Xarelto) 20 mg PO 0600 [facility] Last Admin: 03/04/19 05:47 Dose: 20 mg Sodium Chloride (Flush - Normal Saline) 10 ml IVF Q12HR [facility] Last Admin: 03/04/19 08:48 Dose: 10 ml Sodium Chloride (Flush - Normal Saline) 10 ml IVF PRN PRN PRN Reason: Saline Flush Vital Signs & Weight: Vital Signs Temp Pulse Resp BP BP BP Pulse Ox 03/04/19 11:35 94 L 03/04/19 11:02 97.7 F 110 H 22 H 103/60 94 L 03/04/19 08:46 122 H 112/70 03/04/19 08:00 97.7 F 122 H 24 H 112/70 94 L 03/04/19 04:00 98.1 F 101 H 20 134/58 L 95 Admit Weight 152 lb 8.958 oz Weight 148 lb 7 oz - Physical Exam General: alert & oriented x3 HEENT: mucus membranes moist Cardiac: other (IRR IRR) Lungs: decreased breath sounds Neuro: grossly intact Abdomen: soft Extremities: 1+ LE edema Skin: clear - Labs Result Diagrams: 03/03/19 10:34 03/03/19 10:34 - Telemetry Supraventricular conduction: atrial fibrillation - Assessment/Plan Assessment/Plan: 1. Persistent AF 2. Hx bradycardia post-DCCV in the past 3. Recent atypical PNA 4. Acute on chronic diastolic CHF 5. Hyponatremia Overall doing well. Will continue monitoring rate. May need to increase CCB. Hold lasix with hyponatremia. Will discuss antibiotics/discharge planning with pulmonary.
[2019-03-04] MEDS: Cefdinir 300 MG CAP PO SCH (19:57)
[2019-03-05] MEDS: Rivaroxaban 10 MG TAB PO SCH (05:15)
[2019-03-05] MEDS: predniSONE 20 MG TAB PO SCH (09:03)
--- NOTE | 2019-03-05 09:34 | PDOC.CPN ---
- Subjective Date: 03/05/19 Time: 09:32 Interval history: C/O cough. Otherwise feels ok. - Review of Systems General: denies: fever/chills, weight/appetite/sleep changes, night sweats, fatigue Respiratory: reports: cough, congestion, shortness of breath, exercise intolerance Cardiovascular: denies: chest pain, palpitation, edema, paroxysmal nocturnal dyspnea, orthopnea Gastrointestinal: denies: nausea, vomiting, diarrhea, constipation, abd pain, GI bleeding Musculoskeletal: denies: pain, tenderness, stiffness, swelling, arthritis/ arthralgias Neurological: denies: numbness, syncope, seizure, weakness - Objective Allergies/Adverse Reactions: Allergies Allergy/AdvReac Type Severity Reaction Status Date / Time No Known Allergies Allergy Verified 02/27/19 14:17 Visit Medications: Current Medications Albuterol/Ipratropium (Duoneb) 3 ml [facility] Cefdinir (Omnicef) 300 mg PO BID [facility] Stop: 03/09/19 21:01 Last Admin: 03/04/19 19:57 Dose: 300 mg Diltiazem HCl (Cardizem Cd) 240 mg PO DAILY [facility] Last Admin: 03/04/19 08:46 Dose: 240 mg Famotidine (Pepcid) 20 mg PO BID [facility] Last Admin: 03/04/19 19:57 Dose: 20 mg Gabapentin (Neurontin) 300 mg PO QAM [facility] Last Admin: 03/04/19 08:46 Dose: 300 mg Lidocaine HCl (Xylocaine 4% Pf) 5 ml [facility] Magnesium Hydroxide (Milk Of Magnesium) 30 ml PO DAILYPRN PRN PRN Reason: Constipation Ondansetron HCl (Zofran) 4 mg SLOW IVP Q6H PRN PRN Reason: Nausea/Vomiting Prednisone (Prednisone) 20 mg PO QAM-WM [facility] Last Admin: 03/05/19 09:03 Dose: 20 mg Rivaroxaban (Xarelto) 20 mg PO 0600 [facility] Last Admin: 03/05/19 05:15 Dose: 20 mg Sodium Chloride (Flush - Normal Saline) 10 ml IVF Q12HR [facility] Last Admin: 03/04/19 19:57 Dose: 10 ml Sodium Chloride (Flush - Normal Saline) 10 ml IVF PRN PRN PRN Reason: Saline Flush Vital Signs & Weight: Vital Signs Temp Pulse Resp BP BP Pulse Ox 03/05/19 09:04 91 L 03/05/19 08:00 97.4 F L 99 14 109/72 91 L 03/05/19 04:05 97.8 F 74 16 113/76 92 L 03/04/19 23:15 97.4 F L 97 18 125/72 92 L Admit Weight 152 lb 8.958 oz Weight 148 lb 7 oz - Physical Exam General: alert & oriented x3, appears well HEENT: mucus membranes moist Neck: supple neck Cardiac: other (IRR IRR) Lungs: decreased breath sounds Neuro: grossly intact Abdomen: unremarkable Extremities: 1+ LE edema Skin: clear - Labs Result Diagrams: 03/03/19 10:34 03/03/19 10:34 - Assessment/Plan Assessment/Plan: 1. Persistent AF 2. Hx bradycardia post-DCCV in the past 3. Recent atypical PNA 4. Acute on chronic diastolic CHF 5. Hyponatremia 6. Non-small cell lung CA Stable from a CV standpoint. More euvolemic. Will continue rate-control only at this time. Tolerating Xarelto without bruising or bleeding complications. Will recheck sodium in AM. Consult oncology. If lengthened stay planned for any treatments, ok to transfer to oncology floor. Pt seen and examined Pt diagnosed with NSC cancer. oOncology has seen pt and set her up next week Pt is rate controlled Recommend dc in am with close up fu
[2019-03-05] MEDS: Gabapentin 300 MG CAP PO SCH (09:35)
[2019-03-05] MEDS: Famotidine 20 MG TAB PO SCH ×2 (09:36→20:41)
[2019-03-05] MEDS: Cefdinir 300 MG CAP PO SCH ×2 (09:36→20:41)
--- NOTE | 2019-03-05 10:09 | PRG ---
DATE OF SERVICE: 03/05/2019 SUBJECTIVE: An 78-year-old female. This morning, she is awake, alert, responsive, still in atrial fibrillation. OBJECTIVE: VITAL SIGNS: Temperature 97; pulse 99, irregular; respiratory rate 14; saturations are 90% on 2 L, blood pressure 119/72. CHEST: Decreased breath sounds. No wheezing. CARDIAC: Normal S1 and S2. No gallops. ABDOMEN: No masses. ASSESSMENT AND PLAN: 1. Supraventricular tachycardia. 2. Right lower lung infiltrate, mass consistent with a non-small cell bronchogenic carcinoma. 3. At this stage, we will consult Oncology. She is obviously not a surgical candidate. Question is whether she needs additional tissue before they can start treating her. We will follow. Job ID: [id number]
--- NOTE | 2019-03-05 13:58 | MRI ---
Exam: Brain MRI with and without contrast HISTORY: Lung cancer. Evaluate for intracranial metastases. COMPARISON: None FINDINGS: Gradient echo sequence: No hemorrhage Calvarium: Appropriate T1 marrow signal intensity. Incidental hemangioma in the left parietal calvari um. Midline brain parenchyma: Unremarkable Cerebrum:No parenchymal mass, mass effect or midline shift. Age-appropriate brain volume loss. Cortic al bush-white matter differentiation is preserved. There are white matter hyperintensities on the axial T2 and FLAIR sequence likely due to chronic small vessel ischemic change. Ventricles: No evidence of hydrocephalus. Sinuses and mastoid air cells: Adequate aeration Diffusion: Central arterial flow is maintained. Questionable small focus of cortical restricted diffu alanna involving the medial left parietal lobe (axial image 37, series 5).. Postcontrast images: Postcontrast images are suboptimal due to only 5 cc of gadolinium administered. No definite pathologic enhancement of the brain parenchyma. IMPRESSION: 1. Suboptimal postcontrast images. No definite pathologic enhancement the brain parenchyma 2. Extensive T2 and FLAIR white matter hyperintensities which are presumed to be due to chronic small vessel ischemic change 3. Possible small cortical infarct involving the left parietal lobe.
--- NOTE | 2019-03-05 15:57 | CON ---
DATE OF CONSULTATION: REASON FOR CONSULT: Lung cancer. HISTORY OF PRESENT ILLNESS: Ms. Tellez is a pleasant 78-year-old female, who over the past month has gotten increasingly short of breath. She presented to [facility] in [place] and was treated for pneumonia with no improvement. She was evidently transferred here. She did undergo a CT scan of the chest, which showed multifocal pneumonia. There was a dense area of consolidation involving the right lower lobe as well as the right middle lobe. She had peribronchial thickening. There was a moderate size right pleural effusion. She did have some mediastinal and right hilar lymphadenopathy. She had bilateral lower extremity edema. She was treated with Lasix. Her EF is 50% to 55%. She underwent a thoracentesis for her pleural effusion. Bronchial brushings of the right lower lobe were positive for malignant cells consistent with non-small cell, unfortunately unable to determine if it was squamous versus adenocarcinoma. The patient has a [id number] history of smoking, quit over 20 years ago. No family history of lung cancer. Denies hemoptysis. She does have a cough. She has had intermittent headache and "zigzags" from her eyes over the last several weeks. PAST MEDICAL HISTORY: 1. Diastolic heart failure. 2. Atrial fibrillation. ALLERGIES: NO KNOWN DRUG ALLERGIES. HOME MEDICATIONS: 1. Ventolin. 2. Vitamin D. 3. Lasix. 4. Levothyroxine. 5. Neurontin. 6. Protonix. 7. Xarelto. FAMILY HISTORY: Father had prostate cancer. SOCIAL HISTORY: , lives with her spouse a [id number] history of smoking. REVIEW OF SYSTEMS: A 10-point review of systems is negative except for noted in HPI. PHYSICAL EXAMINATION: VITAL SIGNS: Temperature 97.9, pulse is 111, respiratory rate 12, BP is 193/86. She is 93% on room air. GENERAL: This is a well-developed, well-nourished female, in no acute distress. HEENT: Normocephalic and atraumatic. Pupils are equal and reactive to light. NECK: Supple. CV: Regular rate and rhythm. LUNGS: Clear anterior. ABDOMEN: Soft and nontender. Bowel sounds are positive. EXTREMITIES: She has 2+ bilateral lower extremity edema. SKIN: No rash. HEMATOLOGIC: No petechiae or purpura. NEUROLOGIC: Nonfocal. PERTINENT LABS AND X-RAYS: Current WBCs are 5.5, hemoglobin 14.1, hematocrit 44.1, platelet count is 70,000, she has 75% neutrophils, 13% lymphocytes. Sodium is 128, potassium 3.2, chloride 87, CO2 is 30, BUN is 10, creatinine 0.67, calcium is 9.2, bilirubin 0.4, AST is 10, ALT is 19, alkaline phosphatase is 93. BNP is 66. Serum total protein 6.1, albumin 3.2, globulin 2.9. Radiology per HPI. ASSESSMENT: 1. Non-small cell lung cancer. 2. Atrial fibrillation, on anticoagulation. 3. Multifocal pneumonia. DISCUSSION: The patient's diagnosis is from pleural fluid. Unfortunately, there is not enough tissue to further differentiate adenocarcinoma from squamous immunohistochemical mutations. PLAN: For her to have a brain MRI prior to departure. She will continue antibiotics and follow up in our clinic next week. She will have a PET scan in the outpatient setting and further biopsy can be done to obtain tissue. The diagnosis was discussed with both the patient and spouse. All their questions were answered. She can be discharged to see us in the clinic next . Case has been discussed with Dr. Michelle. Thank you for the consult. Job ID: [id number]
[2019-03-05 16:41] VITALS: BMI 25.3
[2019-03-06 04:26] VITALS: BP 122/88; TEMP 97.6
[2019-03-06] MEDS: Rivaroxaban 10 MG TAB PO SCH (05:40)
[2019-03-06] MEDS: predniSONE 20 MG TAB PO SCH (08:56)
--- NOTE | 2019-03-06 09:48 | PRG ---
DATE OF SERVICE: 03/06/2019 SUBJECTIVE: This morning, she is awake, alert, and responsive, less short of breath. OBJECTIVE: VITAL SIGNS: Saturations are 90% on 2 L, blood pressure 120/88, respirations 16, temperature 97, pulse 75. CHEST: Decreased breath sounds in right lung. Left lung unremarkable. CARDIAC: Normal S1 and S2. No gallops. ABDOMEN: No masses. ASSESSMENT AND PLAN: 1. Right lower lung non-small cell bronchogenic carcinoma with pleural effusion. 2. Coronary artery disease. 3. Former smoker. Pulmonary mcdonald, she has medicines to take at home including low-flow O2, antibiotics for a few more days, prednisone taper over a week. Follow up with Oncology. Follow up with primary care physician. Follow up with Dr. Lujan as needed. Job ID: [id number]
[2019-03-06 09:49] LABS: Hemoglobin 14.2 g/dL (12.0-16.0); Platelet Count 74 thou/uL (130-400)
[2019-03-06] MEDS: Gabapentin 300 MG CAP PO SCH (10:06)
[2019-03-06] MEDS: Cefdinir 300 MG CAP PO SCH (10:08)
[2019-03-06] MEDS: Famotidine 20 MG TAB PO SCH (10:08)
[2019-03-06 13:17] LABS: Anion Gap 12 mmol/L (10-20); BUN (Urea Nitrogen) 13 mg/dL (9.8-20.1); Calc. Creatinine Clearance 71 mL/min (70-130); Carbon Dioxide 35 mmol/L (23-31); Chloride 86 mmol/L (98-107); Estimated GFR-MDRD 85; Glucose 272 mg/dL (83-110); Potassium 3.4 mmol/L (3.5-5.1); Sodium 130 mmol/L (136-145)
[2019-03-07 10:10] LABS: Fungus Stain Final report (.); Fungus Stain Result 1 Yeast observed (.)
[2019-03-07 10:10] LABS: Fungus Stain Final report (.); Fungus Stain Result 1 Yeast observed (.)
== END 2019-03-06 15:02 | disposition home or self-care (01) | DRG 180 ==
LOC: 2NO 13:03 → SURG B 03-04 11:04
PROVIDERS: ADMIT Internal Medicine Cardiovascular Disease; ATTEND Internal Medicine Cardiovascular Disease
PROC: 3E02340 Introduction of Influenza Vaccine into Muscle, Percutaneous Approach (ICD-10-PCS; 2019-02-28)
PROC: 0BD68ZX Extraction of Right Lower Lobe Bronchus, Via Natural or Artificial Opening Endoscopic, Diagnostic (ICD-10-PCS; principal; 2019-03-03)
DX: C34.31 Malignant neoplasm of lower lobe, right bronchus or lung (principal); I50.33 Acute on chronic diastolic (congestive) heart failure; J18.9 Pneumonia, unspecified organism; I48.19 Other persistent atrial fibrillation; E87.1 Hypo-osmolality and hyponatremia; I47.1 Supraventricular tachycardia; J91.0 Malignant pleural effusion; I11.0 Hypertensive heart disease with heart failure; I25.10 Atherosclerotic heart disease of native coronary artery without angina pectoris; D64.9 Anemia, unspecified; Z90.49 Acquired absence of other specified parts of digestive tract; Z87.01 Personal history of pneumonia (recurrent); Z87.891 Personal history of nicotine dependence; Z79.899 Other long term (current) drug therapy; Z79.890 Hormone replacement therapy; Z23 Encounter for immunization; Z95.0 Presence of cardiac pacemaker
CPT/HCPCS: 36415; 70553; 71046; 71250; 80048; 80053; 82565; 83880; 85014; 85018; 85025; 85049; 87070; 87102; 87116; 87205; 87206; 88104; 88112; 88305; 88341; 88342; 90471; 90662; 93306; 99152; 99153; G0008; J0171; J0692; J1940; J2001; J2250; J3010; J3490; J7512; J7620

== ENCOUNTER 2019-03-17 13:07 | Outpatient (CLI) | payer MEDICARE, BC ==
--- NOTE | 2019-03-17 14:14 | PET ---
PET SCAN WITH CT ATTENUATION CORRECTION: COMPARISON: None. CORRELATION: Chest CT 03/01/2019. HISTORY: Nonsmall cell lung cancer, right lung cancer TECHNIQUE: PET scan with CT attenuation correction was performed from the base of the brain to the proximal thig hs following the intravenous administration of 11.1 mm of [id number]. FINDINGS: Head and neck: No abnormal FDG localization. CHEST: There is evidence of extensive mediastinal lymphadenopathy. Hypermetabolic anterior mediastinal lymph node with a maximum SUV of 4.0; paratracheal lymph nodes with a maximum SUV between 3.9 and 4.4; subcarinal lymph node with a maximum SUV of 4.4; right hilar lymph node with a maximum SUV of 5.2. CT used for attenuation correction demonstrates persistent opacification of the right lower lobe. The degree of opacification in the middle lobe has progressed. There is also evidence of worsening right-sided pleural effusion. Diffusion images demonstrate increased FDG avidity in the right infrahi lar region, extending into the right lower lobe. Maximum SUV is 6.0. No abnormal FDG localization in the contralateral lung. Abdomen and pelvis: Physiologic distribution of the radiotracer. No abnormal FDG localization in the liver or adrenal gla nds. Symmetric FDG localization in the renal collecting system. Osseous structures: No abnormal FDG localization. IMPRESSION: 1. Increased FDG avidity in the right hilum, mediastinum and right lower lobe compatible with primar y right lower lobe cancer and associated metastases. 2. The degree of opacification of the right lung has increased, as has the amount of pleural fluid.
--- NOTE | 2019-03-17 14:48 | CT ---
EXAM: CT of the chest with contrast HISTORY: Lung cancer COMPARISON: 03/01/2019 TECHNIQUE: Multiple contiguous axial images were obtained in a CT the chest with contrast. Coronal an d sagittal reformats were performed. FINDINGS: HEART: Normal in size without focal cardiac abnormality MEDIASTINUM: Numerous enlarged right hilar and mediastinal lymph nodes are seen. The mediastinal lymp h nodes are seen in the prevascular space, pretracheal space, and subcarinal locations. LUNGS: Soft tissue density is seen in the right hilar region. This causes near complete collapse of t he right lower lobe and partial collapse of the right middle lobe. This soft tissue density extends into the right lower lobe bronchus. PLEURAL SPACE: Small right pleural effusion. CHEST WALL SOFT TISSUES: Unremarkable OSSEOUS STRUCTURES: Degenerative changes in the spine. No suspicious osseous lesions identified VISUALIZED SUBDIAPHRAGMATIC STRUCTURES: Unremarkable IMPRESSION: Lung cancer in the right hilar region causing collapse of the right middle and lower lobes. There is extensive right hilar and mediastinal lymphadenopathy. No peripheral lung mass is seen for which percutaneous biopsy could be performed.
== END 2019-03-17 13:08 | disposition home or self-care (01) ==
LOC: PET 13:07
PROVIDERS: ATTEND Internal Medicine Hematology & Oncology
DX: C34.11 Malignant neoplasm of upper lobe, right bronchus or lung (principal); D69.59 Other secondary thrombocytopenia; R59.0 Localized enlarged lymph nodes
CPT/HCPCS: 71260; 78815; A9552

== ENCOUNTER 2019-03-30 11:31 | Day surgery (SDC) | payer MEDICARE, BC ==
--- NOTE | 2019-03-30 12:34 | RAD ---
XR Chest 1 View Portable HISTORY: Postthoracentesis. COMPARISON: CT examination of 03/17/2019. FINDINGS: Heart size within normal limits. The left lung is clear. The opacification the right lung b ase is fairly similar to the appearance on the previous CT study perhaps slightly reduced. No signs of pneumothorax. IMPRESSION: No evidence of pneumothorax postthoracentesis.
--- NOTE | 2019-03-30 12:38 | OP ---
DATE OF PROCEDURE: 03/30/2019 PROCEDURE PERFORMED: Thoracentesis. INDICATION: Pleural effusion. DESCRIPTION OF PROCEDURE: After informed consent with the patient and the , the right posterior thorax was cleaned with chlorhexidine. 1% lidocaine was infiltrated into the right 9th intercostal space in the posterior scapular line and the pleural cavity was entered in and about 20 mL of slightly serosanguineous fluid was removed without any difficulty. An 8-Luxembourgish catheter was inserted. Thereafter, a total of 375 mL fluid was removed. Somewhat, it was bloody because she is still taking the Xarelto. About 375 mL of fluid was removed without any issues. Pleural effusion sent for pleural studies including cytology and culture. The patient tolerated the procedure well. BRIEF DISCHARGE NOTE: The patient tolerated the procedure well. Results will be made available to the patient and family. Further recommendation as above. Job ID: [id number]
[2019-03-30 12:54] LABS: BF Color Yellow; Body Fluid Source Thoracentesis Fluid; Clarity Hazy (Clear)
[2019-03-30 12:55] LABS: RBC Count-Automated (BF) 1255 /cumm; Tube # 1; WBC/Nucleated-Auto (BF) 884 uL
[2019-03-30 13:04] LABS: BF Segmented Neutrophils 1 %; Cell Count Non Hematic 51 %; Lymphocytes 48 %
[2019-03-30 13:19] LABS: Pleural Fluid, Protein 2.9 g/dL
--- NOTE | 2019-03-31 07:34 | HP ---
HISTORY OF PRESENT ILLNESS: Ms. Tellez is an 78-year-old female, who was recently in the hospital with unresolved pneumonia. CAT scan confirmed a mass. She underwent a bronchoscopy, which showed extensive disease in the right lower lung. Unfortunately, the washings and brushings were consistent with non-small cell carcinoma. They were unable to give additional information. Oncology was consulted, who requested additional tissue diagnosis. The patient is very hypoxic. She is in the office today with oxygen saturation on 2 L at 90%; on room air, it is 84%. She has a long list of medication, which includes gabapentin 300 once a day, Xarelto 20 once a day, Protonix, potassium, digoxin 125, Lasix 20, Synthroid 50. Several different issues. She has been seen in the office now for a period of time with history of COPD, which would be relatively stable. She had smoked a pack a day for 40 years, though she quit spoke in 2000. She has lost considerable weight. Her main problem is cough. PAST MEDICAL HISTORY: Cardiac arrhythmias, benign tremor, arthritis, reflux, and chronic pain. PAST SURGICAL HISTORY: Previous surgeries; gallbladder, appendix, tonsils, adenoids, and cataract surgery. 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 REVIEW OF SYSTEMS: Otherwise, unremarkable. ALLERGIES: NONE. PHYSICAL EXAMINATION: GENERAL: On examination, as noted, she is tachypneic and tachycardic when she arrived in the office. VITAL SIGNS: Saturations of 90% on 2 L, pulse 100, blood pressure 138/83. CHEST: Decreased breath sounds in right lung. Left lung, unremarkable. CARDIAC: Normal S1 and S2. No gallops. ABDOMEN: No masses. ASSESSMENT: 1. Right lung mass. 2. Bronchogenic carcinoma with small pleural effusion. 3. Supraventricular tachycardia. 4. Chronic obstructive pulmonary disease. PLAN: Outpatient thoracentesis will be done. I am not sure at this stage able to do a bronchoscopy considering she is hypoxic. Await results of the thoracentesis. Job ID: [id number]
== END 2019-03-30 12:55 | disposition home or self-care (01) ==
LOC: SDC 11:31
PROVIDERS: ATTEND Internal Medicine Pulmonary Disease
PROC: 0W993ZZ Drainage of Right Pleural Cavity, Percutaneous Approach (ICD-10-PCS; principal; 2019-03-30)
DX: J90 Pleural effusion, not elsewhere classified (principal); C34.31 Malignant neoplasm of lower lobe, right bronchus or lung; M19.90 Unspecified osteoarthritis, unspecified site; K21.9 Gastro-esophageal reflux disease without esophagitis; G89.29 Other chronic pain; I47.1 Supraventricular tachycardia; J44.9 Chronic obstructive pulmonary disease, unspecified; Z87.891 Personal history of nicotine dependence
CPT/HCPCS: 32554; 71045; 82150; 82945; 83615; 84157; 84478; 85060; 87070; 87116; 87205; 87206; 88112; 88305; 88341; 88342; 89051; J1642

== ENCOUNTER 2019-04-08 13:58 | Inpatient (IN) | payer MEDICARE, BC ==
[2019-04-08 15:39] LABS: Actual Bicarbonate (HCO3a) 37.3 mEq/L (22-28); Analyzer IN Cardio ER; Base Excess (BEa) 11.4 mEq/L (-2.0 to +3.0); CO2 Tension 53.2 mmHg (35.0-45.0); Calcium, Ionized 1.18 mmol/L (1.12-1.30); Carboxyhemoglobin (COHb) 0.8 gm% (0.0-3.0); Hemoglobin (Hb) 14.9 g/dL (12.0-16.0); O2 Tension (PaO2) 73.7 mmHg (> 60.0); Potassium - ABG Lab 3.18 mmol/L (3.70-5.30); pH, Arterial 7.46 (7.35-7.45)
[2019-04-08 15:42] LABS: Puncture Site RRA
[2019-04-08 16:00] LABS: Hemoglobin 14.8 g/dL (12.0-16.0); Mean Corpuscular HGB CONC 32.3 g/dL (32.0-36.0); Mean Corpuscular Hemoglobin 27.4 pg (27.0-31.0); Mean Corpuscular Volume 84.8 fL (78.0-98.0); RBC Distribution Width 13.6 % (11.5-14.5); Red Blood Cell (RBC) Count 5.41 mill/uL (4.20-5.40); White Blood Cell (WBC) Count 6.2 thou/uL (4.8-10.8)
[2019-04-08 16:01] LABS: #Lymphocytes 0.7 thou/uL (1.20-3.40); #Monocytes 0.5 thou/uL (0.11-0.59); %Basophils 0.3 % (0.0-1.0); %Eosinophils 0.7 % (0.0-10.0); %Lymphocytes 10.8 % (21.0-51.0); %Monocytes 7.7 % (0.0-10.0); %Neutrophils 80.5 % (42.0-75.0)
--- NOTE | 2019-04-08 16:14 | RAD ---
Portable upright frontal chest radiograph 04/08/2019 COMPARISON: 03/30/2019 HISTORY: Bilateral lower extremity edema FINDINGS: There is opacity involving the right lung base with obscuration of right hemidiaphragm and right heart border. This partially obscures the right hilar shadow as well. This suggests a combination of significant stable pleural fluid with pulmonary opacity on the basis of consolidation/ collapse. Recent CT examination performed approximately 1 month ago demonstrated evidence of significant malignant lymphadenopathy throughout the mediastinum and in the right hilar region, consi stent with the patient's history of bronchogenic carcinoma on the right. IMPRESSION: Stable appearance of the chest as detailed above.
[2019-04-08 16:16] LABS: ALT (SGPT) 14 U/L (8-55); AST (SGOT) 11 U/L (5-34); Albumin 3.1 g/dL (3.4-4.8); Alkaline Phosphatase 108 U/L (40-110); BUN (Urea Nitrogen) 9 mg/dL (9.8-20.1); Bilirubin, Total 0.4 mg/dL (0.2-1.2); CK (CPK) 13 U/L (29-168); Calc. Creatinine Clearance 0 mL/min (70-130); Calcium 9.3 mg/dL (7.8-10.44); Estimated GFR-MDRD Greater than 90; Globulin 2.7 g/dL (2.4-3.5); Glucose 178 mg/dL (83-110); Lipase 16 U/L (8-78); Protein, Total 5.8 g/dL (6.0-8.3)
[2019-04-08 16:21] LABS: Large Platelets SLIGHT; MDiff Complete? YES; Mean Platelet Volume 12.2 fL (7.4-10.4); Platelet Count 78 thou/uL (130-400); Platelet Morphology Comment Appears Decreased; Polychromasia SLIGHT = 2-3 cells (100X) (0-2/hpf)
[2019-04-08 16:26] LABS: Anion Gap 12 mmol/L (10-20); Carbon Dioxide 38 mmol/L (23-31); Chloride 86 mmol/L (98-107); Potassium 3.4 mmol/L (3.5-5.1); Sodium 133 mmol/L (136-145)
[2019-04-08] MEDS ORDERED: Furosemide 40 MG/4 ML VIAL ONE (16:33)
[2019-04-08] MEDS ORDERED: Magnesium 2 GM/50 ML BAG (IN WATER) ONE (16:33)
[2019-04-08] MEDS ORDERED: Aspirin Chewable 81 MG TAB ONE (16:33)
[2019-04-08] MEDS ORDERED: Ondansetron PF 4 MG/2 ML Vial IVP PRN (17:30)
[2019-04-08] MEDS ORDERED: Ondansetron ODT 4 MG TAB PO PRN (17:30)
[2019-04-08] MEDS ORDERED: Acetaminophen 325 MG TAB PO PRN (17:30)
--- NOTE | 2019-04-08 17:40 | PDOC.FPRHP ---
- History of Present Illness Chief Complaint: swollen legs, SOB, fatigue History of Present Illness: This is an 78 yo F presenting to the ER today with a CC of swollen legs and SOB. She states that her legs have gotten progressively more swollen over the last few days. She does take lasix at home but she has continued to have increased swelling. She also endorses SOB. She is on 3L home O2 at baseline. She endorses difficulty lying flat due to SOB. She also has noted a cough over the last few days that has been productive of yellow sputum and increased amount of sputum than normal. She denies any fever or chills. Denies any dysuria. Denies chest pain or palpitations. Denies NVD or muscle aches. Per at the bedside, prior to about 2 weeks ago the patient was able to walk around, take care of herself and ADLs. He states she has become increasingly fatigued and has lost weight. He has to help her ambulate around the house. Of note, patient was seen in early Feb. at [facility] and was diagnosed with Adenocarcinoma of the right lung. ED Course: 3ml Duoneb, 750mg IV levaquin, 1mg IV dilaudid, 10mg IV diltizem, 0.5mg IV digoxin, 50mg Mg, 324 mg ASA, 40mg IV lasix - Allergies/Adverse Reactions Allergies Allergy/AdvReac Type Severity Reaction Status Date / Time No Known Allergies Allergy Verified 02/27/19 14:17 - Home Medications Medication Instructions Recorded Confirmed Type Gabapentin [Neurontin] 300 mg PO QPM cap 09/19/17 02/27/19 Rx Pantoprazole [Protonix] 40 mg PO QPM tab 09/19/17 02/27/19 Rx Rivaroxaban [Xarelto] 20 mg PO QPM-WM tab 09/19/17 02/27/19 Rx Albuterol Sulfate [Ventolin HFA] 2 puff INH Q6HR PRN 02/27/19 02/27/19 History Cholecalciferol (Vitamin D3) 1,000 unit PO DAILY 02/27/19 02/27/19 History [Vitamin D3] Olopatadine HCl [Pataday] 1 drop EA EYE BID 02/27/19 02/27/19 History Cefdinir [Omnicef] 300 mg PO BID 10 Days #20 cap 03/06/19 Rx Diltiazem HCl [Cardizem CD] 240 mg PO DAILY 30 Days #30 cap 03/06/19 Rx Furosemide [Lasix] 20 mg PO PRN PRN 30 Days #30 tab 03/06/19 Rx Gabapentin [Neurontin] 300 mg PO QAM cap 03/06/19 Rx Rivaroxaban [Xarelto] 20 mg PO 0600 tab 03/06/19 Rx predniSONE 20 mg PO QAM-WM 5 Days #5 tab 03/06/19 Rx - History PMHx: A fib, adenocarcinoma stage 4 (04/14) of right lung, COPD PSHx: cataracts, cholecystectomy, back surgery, tubal ligation FHx: non contributory Social: smoked for 40 years (quit 20 years ago), occasional alcohol, denies drug use - Review of Systems General: reports: weight/appetite/sleep changes (has lost weight), fatigue. denies: fever/chills, night sweats Eyes: denies: vision changes ENT: denies: nasal congestion, rhinorrhea Respiratory: reports: cough, shortness of breath, exercise intolerance. denies : congestion Cardiovascular: reports: edema, paroxysmal nocturnal dyspnea, orthopnea. denies : chest pain, palpitation Gastrointestinal: denies: nausea, vomiting, diarrhea, constipation, abdominal pain Genitourinary: denies: dysuria Skin: denies: rashes, lesions Musculoskeletal: reports: swelling. denies: pain, tenderness, stiffness Neurological: reports: weakness - Vital signs BP: 136/96, Pulse: 100, Resp: 32, Temp: 97.8, Pain: 0, O2 sat: 94 on 3, Time: 04/08/2019 17:32 Weight 68kg - Physical Exam Constitutional: NAD, awake, alert and oriented, well developed HEENT: normocephalic and atraumatic, PERRLA, EOMI, grossly normal vision, grossly normal hearing -HEENT: MM Dry Neck: supple, FROM, no JVD Chest: no-tender to palpation, no lesions Heart: no murmurs/rubs/gallops, pulses present -Heart: irregularly irregular; 2+ edema to the level of abdomen Lungs: no respiratory distress, good air movement, no retractions -Lungs: mild exp wheeze heard throughout, minimal crackles heart at the right lung base Abdomen: soft, non-tender, bowel sounds present Musculoskeletal: normal structure, normal tone Neurological: no focal deficit Skin: no rash/lesions, good turgor, capillary refill <2 seconds Heme/Lymphatic: no unusual bruising or bleeding, no purpura, no petechia Psychiatric: normal mood and affect, good judgment and insight FMR H&P: Results - Labs Result Diagrams: 04/08/19 15:42 04/08/19 15:42 Lab results: WBC 6.2 thou/uL (4.8-10.8) 04/08/19 15:42 Hgb 14.8 g/dL (12.0-16.0) 04/08/19 15:42 Hct 45.8 % (36.0-47.0) 04/08/19 15:42 MCV 84.8 fL (78.0-98.0) 04/08/19 15:42 Plt Count 78 thou/uL (130-400) L 04/08/19 15:42 Neutrophils % 80.5 % (42.0-75.0) H 04/08/19 15:42 ABG pH 7.46 (7.35-7.45) H 04/08/19 15:27 ABG pCO2 53.2 mmHg (35.0-45.0) H 04/08/19 15:27 ABG pO2 73.7 mmHg (> 60.0) H 04/08/19 15:27 Sodium 133 mmol/L (136-145) L 04/08/19 15:42 Potassium 3.4 mmol/L (3.5-5.1) L 04/08/19 15:42 Chloride 86 mmol/L (98-107) L 04/08/19 15:42 Carbon Dioxide 38 mmol/L (23-31) H 04/08/19 15:42 BUN 9 mg/dL (9.8-20.1) L 04/08/19 15:42 Creatinine 0.59 mg/dL (0.6-1.1) L 04/08/19 15:42 Glucose 178 mg/dL (83-110) H 04/08/19 15:42 Lactic Acid 1.2 mmol/L (0.5-2.2) 04/08/19 15:42 Calcium 9.3 mg/dL (7.8-10.44) 04/08/19 15:42 Total Bilirubin 0.4 mg/dL (0.2-1.2) 04/08/19 15:42 AST 11 U/L (5-34) 04/08/19 15:42 ALT 14 U/L (8-55) 04/08/19 15:42 Alkaline Phosphatase 108 U/L (40-110) 04/08/19 15:42 Creatine Kinase 13 U/L (29-168) L 04/08/19 15:42 CK-MB (CK-2) 1.0 ng/mL (0-6.6) 04/08/19 15:42 B-Natriuretic Peptide 47.7 pg/mL (0-100) 04/08/19 15:42 Serum Total Protein 5.8 g/dL (6.0-8.3) L 04/08/19 15:42 Albumin 3.1 g/dL (3.4-4.8) L 04/08/19 15:42 Lipase 16 U/L (8-78) 04/08/19 15:42 - EKG Interpretation EKG: atrial fibrillation - Radiology Interpretation Chest x-ray Status: report reviewed by me (There is opacity involving the right lung base with obscuration of right hemidiaphragm and right heart border. This partially obscures the right hilar shadow as well. This suggests a combination of significant stable pleural fluid with pulmonary opacity on the basis of consolidation/collapse. Recent CT examination performed approximately 1 month ago demonstrated evidence of significant malignant lymphadenopathy throughout the mediastinum and in the right hilar region, consistent with the patients history of bronchogenic carcinoma on the right. IMPRESSION: Stable appearance of the chest as detailed above.) FMR H&P: A/P - Problem List (1) Adenocarcinoma Current Visit: Yes Status: Acute Code(s): C80.1 - MALIGNANT (PRIMARY) NEOPLASM, UNSPECIFIED (2) COPD exacerbation Current Visit: Yes Status: Acute Code(s): J44.1 - CHRONIC OBSTRUCTIVE PULMONARY DISEASE W (ACUTE) EXACERBATION (3) CHF exacerbation Current Visit: Yes Status: Acute Code(s): I50.9 - HEART FAILURE, UNSPECIFIED (4) Atrial fibrillation, persistent Current Visit: No Status: Acute Code(s): I48.1 - PERSISTENT ATRIAL FIBRILLATION * DO NOT USE * - Plan #COPD Exacerbation s/p levoquin, duoneb in the ER. Symptoms: increased cough, sputum production and color change. On 3L of home O2. CXR showing stable appearance from previous. No consolidation noted. No fevers and vitals stable. - Will get procal to determine continued abx - Flu swab pending - Duoneb GENEVIEVE q6hrs, PRN 3hrs - Continuous O2 monitoring - keep O2 sats between 88-92% - Will give one dose IV steroids then PO starting tomorrow - PT/OT consulted #CHF Exacerbation s/p 40mg IV lasix in the ER. PE showing 2+ pitting edema to level of the abdomen. BNP normal. Patient seen by Dr. Wilson. Per review of records Echo done on 03/14 showing EF 50-55%, diastolic dysfxn not able to assess due to afib , mild-mod dilated LA, sclerotic aortic valve. - Will continue IV lasix BID - Will monitor I/Os - Elevate head of the bed - Cardiac rehab consulted #Afib w/ RVR (resolved) s/p diltizem and digoxin in the ER. Rate controlled on exam in the ER. EKG showing atrial fib. - Will continue home meds - TSH pending - Can consider cards consult in the AM #Adenocarcinoma of the Right Lung Dx made last week. Per patient, needs a PICC line placed and will need to be off xarelto for 48hrs prior to this. - patient to f/u with oncology outpatient Code:FULL VTE ppx: xarelto GI ppx: none Dispo: admit to tele obs, LOS > 48hrs Case discussed with Dr. Ureña Addendum - Attending - Attending Attestation Date/Time: 04/08/191954 I personally evaluated the patient and discussed the management with Dr. Loo I agree with the History, Examination, Assessment and Plan documented above with any addition or exceptions noted below. 78 yo WF PMH COPD, HFpEF, paroxysmal a-fib, and recently diagnosed adenocarcinoma of the right lung. presents with CC of fatigue and leg swelling. states patient has become progressively weaker over the past few weeks. States she is unable to lay flat due to coughing and has been sleeping in chair without elevating legs. Notes increased leg swelling and generalized weakness. States she has been unable to participate with PT. Also reports increased sputum production. Per ER reports, seen by bobbin hauler today and was concerned for CHF exacerbation. Sent to ER. Found to be in A-fib with RVR, received diltiazem and digoxin which resolved RVR. also given levaquin, lasix, mag, and duoneb. Exam significant for faint wheezing in right lung base, irreg irreg rhythm, and 2+ pitting edema to the hip. EKG shows a-fib. CXR stable. trop0.015- > 0.037, BNP 40. Last TTE showed normal EF, normal pulmonary artery pressure. Admit inpatient for A-fib w/ RVR, HFpEF exacerbation, COPD exacerbation. Continue lasix, fluid restrict, daily weights, steroids, levaquin. Will notify Dr. Wilson, Dr Lujan, and Dr Michelle of patient's admission tomorrow.
[2019-04-08 18:03] LABS: Bilirubin Negative (Negative); Blood, Urine Negative (Negative); Clarity Clear (Clear); Glucose, Urine (Dipstick) Normal (Negative); Leukocyte Negative Leu/uL (Negative); Nitrite Negative (Negative); Protein, Urine (Dipstick) Negative (Neg-Trace); Urobilinogen Normal mg/dL (Less than 2)
[2019-04-08] MEDS ORDERED: Potassium Chloride 20 MEQ TAB PO SCH (18:15)
[2019-04-08 18:28] LABS: Troponin I 0.037 ng/mL (< 0.028)
[2019-04-08] MEDS ORDERED: Rivaroxaban 10 MG TAB PO SCH (21:00)
[2019-04-08 21:06] LABS: Troponin I 0.031 ng/mL (< 0.028)
[2019-04-08] MEDS: methylPREDNISolone Sod Succ 40 MG VIAL IVP SCH (21:19)
[2019-04-08] MEDS: Digoxin 0.5 MG/2 ML AMP SLOW IVP SCH (21:19)
[2019-04-08] MEDS: Gabapentin 300 MG CAP PO SCH (21:19)
[2019-04-09] MEDS: methylPREDNISolone Sod Succ 40 MG VIAL IVP SCH (00:52)
[2019-04-09] MEDS: Benzonatate 100 MG CAP PO PRN ×3 (03:39→21:38)
[2019-04-09] MEDS: Digoxin 0.5 MG/2 ML AMP SLOW IVP SCH (03:39)
--- NOTE | 2019-04-09 05:22 | PDOC.FM ---
- Subjective Subjective: Patient doing okay this morning. Reports that she still is coughing and has some edema, has some SOB but is improved. - Objective Vital Signs & Weight: Vital Signs (12 hours) Temp Pulse Resp BP Pulse Ox 04/09/19 03:53 92 L 04/09/19 03:47 97.8 F 75 22 H 143/67 H 90 L 04/09/19 03:39 97 04/09/19 00:14 97 20 92 L 04/08/19 23:30 97.9 F 96 20 118/66 93 L 04/08/19 21:19 103 H 04/08/19 19:48 98.7 F 121 H 20 123/68 94 L 04/08/19 19:18 108 H 22 H 95 04/08/19 19:10 97.6 F 103 H 22 H 104/57 L 94 L Weight Weight 61.689 kg Result Diagrams: 04/09/19 04:51 04/10/19 05:04 EKG Reviewed by me: Yes (afib/aflutter 80s-90s) Phys Exam - Physical Examination Constitutional: NAD HEENT: moist MMs, sclera anicteric Neck: supple, full ROM expiratory wheezing, coughing triggered by deep inspiration afib Gastrointestinal: soft, non-tender, positive bowel sounds 2+ edema BLE Neurological: moves all 4 limbs Psychiatric: A&O x 3 Deviation from normal: petechia BLE Dx/Plan (1) Adenocarcinoma Code(s): C80.1 - MALIGNANT (PRIMARY) NEOPLASM, UNSPECIFIED Status: Chronic (2) CHF exacerbation Code(s): I50.9 - HEART FAILURE, UNSPECIFIED Status: Acute (3) COPD exacerbation Code(s): J44.1 - CHRONIC OBSTRUCTIVE PULMONARY DISEASE W (ACUTE) EXACERBATION Status: Acute (4) Atrial fibrillation, persistent Code(s): I48.1 - PERSISTENT ATRIAL FIBRILLATION * DO NOT USE * Status: Chronic (5) Hypochloremic alkalosis Code(s): E87.3 - ALKALOSIS Status: Acute - Plan Plan: #COPD Exacerbation s/p levoquin, duoneb in the ER. Symptoms: increased cough, sputum production and color change. - CXR showing stable appearance from previous. No consolidation noted - on 3L of O2 at home, at baseline - Procal 0.03, neg - Flu swab pending - Duoneb GENEVIEVE q6hrs, PRN 3hrs - Continuous O2 monitoring - keep O2 sats between 88-92% - Given 2 doses IV steroids, continue PO today - On levofloxacin for COPD exacerbation, transition to PO abx today - PT/OT consulted #CHF Exacerbation s/p 40mg IV lasix in the ER. 2+ pitting edema to level of the abdomen. BNP normal. - Patient seen by Dr. Wilson in the past; cardiology consult placed, appreciate recs - Echo done on 03/14 showing EF 50-55%, diastolic dysfxn not able to assess due to afib, mild-mod dilated LA, sclerotic aortic valve. - Will continue IV lasix BID - Will monitor I/Os - Elevate head of the bed - Cardiac rehab consulted, appreciate recs #Afib w/ RVR (resolved) s/p diltizem and digoxin in the ER. Rate controlled on exam in the ER. EKG showing atrial fib. - Continue home meds - TSH 2.6, wnl - Cardiology consult today #Adenocarcinoma of the Right Lung Dx made last week. Per patient, needs a PICC line placed and will need to be off xarelto for 48hrs prior to this. - patient to f/u with oncology outpatient #Thrombocytopenia -looking through previous charts from february, appears to be chronic -followed by oncology #Hypochloremic metabolic alkalosis #Respiratory Acidosis -patient has known COPD -patient is on lasix, likely contraction alkalosis -will monitor Code:FULL VTE ppx: xarelto Diet: HH Dispo: continued diuresis and respiratory support, cardiology consult today, appreciate recs Addendum - Attending - Attending Attestation Date/Time: 04/09/19 1055 I personally evaluated the patient and discussed the management with Dr. Childers. I agree with the History, Examination, Assessment and Plan documented above with any addition or exceptions noted below. Consulting cardiology for a.fib. Continue diuresis, nebs.
[2019-04-09 05:25] LABS: #Lymphocytes 0.3 thou/uL (1.20-3.40); #Monocytes 0.1 thou/uL (0.11-0.59); #Neutrophils 2.8 thou/uL (1.40-6.50); %Eosinophils 0.7 % (0.0-10.0); %Lymphocytes 8.7 % (21.0-51.0); %Monocytes 2.5 % (0.0-10.0); %Neutrophils 88.1 % (42.0-75.0); Hemoglobin 12.8 g/dL (12.0-16.0); Mean Corpuscular HGB CONC 32.3 g/dL (32.0-36.0); Mean Corpuscular Hemoglobin 27.2 pg (27.0-31.0); Mean Corpuscular Volume 84.2 fL (78.0-98.0); Mean Platelet Volume 12.6 fL (7.4-10.4); Platelet Count 65 thou/uL (130-400); RBC Distribution Width 13.3 % (11.5-14.5); Red Blood Cell (RBC) Count 4.73 mill/uL (4.20-5.40); White Blood Cell (WBC) Count 3.2 thou/uL (4.8-10.8)
[2019-04-09 05:51] LABS: ALT (SGPT) 15 U/L (8-55); AST (SGOT) 12 U/L (5-34); Albumin 2.6 g/dL (3.4-4.8); Alkaline Phosphatase 88 U/L (40-110); BUN (Urea Nitrogen) 10 mg/dL (9.8-20.1); Bilirubin, Total 0.4 mg/dL (0.2-1.2); Calc. Creatinine Clearance 68 mL/min (70-130); Calcium 8.7 mg/dL (7.8-10.44); Estimated GFR-MDRD 89; Globulin 2.5 g/dL (2.4-3.5); Glucose 219 mg/dL (83-110); Protein, Total 5.1 g/dL (6.0-8.3)
[2019-04-09 06:00] LABS: Anion Gap 14 mmol/L (10-20); Carbon Dioxide 37 mmol/L (23-31); Chloride 85 mmol/L (98-107); Potassium 3.8 mmol/L (3.5-5.1); Sodium 132 mmol/L (136-145)
[2019-04-09] MEDS ORDERED: Rivaroxaban 10 MG TAB PO SCH ×3 (06:00→18:00)
[2019-04-09] MEDS ORDERED: Gabapentin 300 MG CAP PO SCH (09:00)
[2019-04-09] MEDS: predniSONE 20 MG TAB PO SCH (09:27)
[2019-04-09] MEDS: Metolazone 5 MG TAB PO SCH (09:27)
[2019-04-09] MEDS: Furosemide 40 MG/4 ML VIAL SLOW IVP SCH ×2 (09:27→21:38)
--- NOTE | 2019-04-09 18:19 | PRG ---
DATE OF SERVICE: SUBJECTIVE: Ms. Tellez was seen yesterday in the office, where she had increased shortness of breath, cough, and lower extremity edema. She is doing much better. She has been diuresed. Her swelling has improved. Her shortness of breath has also improved. Her heart rate is in the 90s to 100s. OBJECTIVE: VITAL SIGNS: Blood pressure 119/58, pulse 82, temperature 97.6. LUNGS: Mild rhonchi noted on right versus left. HEART: Irregularly irregular. ABDOMEN: Soft, nontender, nondistended. EXTREMITIES: With 2+ pitting edema. PERTINENT LABORATORY DATA: Hemoglobin 12.8, creatinine 0.64. IMPRESSION: 1. Atrial fibrillation. 2. Recent diagnosis of metastatic lung cancer. 3. Lower extremity edema. 4. Chronic obstructive pulmonary disease. RECOMMENDATIONS: I discussed the case with EP. She certainly would benefit from a rhythm control management strategy. Problems with Ms. Tellez is in the past when she was cardioverted, she became markedly bradycardic and developed symptoms from her bradycardia. Beta-waylon therapy was subsequently discontinued and continued amiodarone therapy, given an EF of 40% (it has now normalized), but continued with low heart rate, fatigue and weakness. Amiodarone was subsequently discontinued and has reverted back to atrial fibrillation over the last several months. She may benefit from a pacemaker implantation due to significant bradycardia once she is cardioverted. Again discussed case with EP, who will see the patient in a.m. Job ID: [id number]
[2019-04-09] MEDS: Gabapentin 300 MG CAP PO SCH (21:38)
--- NOTE | 2019-04-10 05:10 | PDOC.FM ---
- Subjective Subjective: Patient doing well this morning, reports that she continues to feel better every day. Discussed that EP will likely come by today to talk with her, patient agreeable with the current plan of care. - Objective Vital Signs & Weight: Vital Signs (12 hours) Temp Pulse Resp BP Pulse Ox 04/10/19 05:05 91 L 04/09/19 23:30 88 16 90 L 04/09/19 19:04 97.7 F 89 22 H 119/58 L 93 L 04/09/19 18:43 78 16 91 L Weight Weight 61.689 kg I&O: 04/08/19 04/09/19 04/10/19 06:59 06:59 06:59 Intake Total 480 960 Output Total 500 1000 Balance -20 -40 Result Diagrams: 04/09/19 04:51 04/10/19 05:04 EKG Reviewed by me: Yes (afib 70s-90s) Phys Exam - Physical Examination Constitutional: NAD HEENT: moist MMs, sclera anicteric Neck: supple, full ROM poor inspiratory effort throughout, scant occasional wheeze afib Gastrointestinal: soft, non-tender 2+ pitting edema to knees BLE Neurological: normal sensation, moves all 4 limbs Psychiatric: normal affect, A&O x 3 Deviation from normal: petechia BLE Dx/Plan (1) Adenocarcinoma Code(s): C80.1 - MALIGNANT (PRIMARY) NEOPLASM, UNSPECIFIED Status: Chronic (2) CHF exacerbation Code(s): I50.9 - HEART FAILURE, UNSPECIFIED Status: Acute (3) COPD exacerbation Code(s): J44.1 - CHRONIC OBSTRUCTIVE PULMONARY DISEASE W (ACUTE) EXACERBATION Status: Acute (4) Atrial fibrillation, persistent Code(s): I48.1 - PERSISTENT ATRIAL FIBRILLATION * DO NOT USE * Status: Chronic (5) Hypochloremic alkalosis Code(s): E87.3 - ALKALOSIS Status: Acute - Plan Plan: #CHF Exacerbation s/p 40mg IV lasix in the ER. 2+ pitting edema to level of the abdomen. BNP normal. - Patient seen by Dr. Wilson in the past; cardiology consult placed, appreciate recs - Echo done on 03/14 showing EF 50-55%, diastolic dysfxn not able to assess due to afib, mild-mod dilated LA, sclerotic aortic valve. - Will continue IV lasix BID - Will monitor I/Os - Elevate head of the bed - Cardiac rehab consulted, appreciate recs - PT/OT consulted, rec rehab - rehab screen placed, will follow #Afib w/ RVR (resolved) s/p diltizem and digoxin in the ER. Rate controlled on exam in the ER. EKG showing atrial fib. - Continue home meds - TSH 2.6, wnl - Cardiology, Dr. Wilson, consulted 04/09, appreciate recs -per report has discussed case with EP; there is consideration that patient may need a pacemaker due to significant bradycardia with cardioversion -per report, EP to consult today #COPD Exacerbation s/p levoquin, duoneb in the ER. Symptoms: increased cough, sputum production and color change. - CXR showing stable appearance from previous. 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 Per patient, needs a PICC line placed and will need to be off xarelto for 48hrs prior to this. - patient to f/u with oncology outpatient #Thrombocytopenia -looking through previous charts from february, appears to be chronic -followed by oncology #Hypochloremic metabolic alkalosis #Respiratory Acidosis -patient has known COPD -patient is on lasix, likely contraction alkalosis -will monitor Code:DNR VTE ppx: xarelto Diet: HH Dispo: continued diuresis and respiratory support, cardiology consulted, possible EP consult, appreciate recs Addendum - Attending - Attending Attestation Date/Time: 04/10/19 1111 I personally evaluated the patient and discussed the management with Dr. Childers. I agree with the History, Examination, Assessment and Plan documented above with any addition or exceptions noted below. The patient is doing well. Cardiology has consulted EP and we will look for their recs. is concerned about her not getting her port placed right now but we explained that the heart needs to be addressed first.
[2019-04-10 05:38] LABS: BUN (Urea Nitrogen) 12 mg/dL (9.8-20.1); Calc. Creatinine Clearance 69 mL/min (70-130); Calcium 8.9 mg/dL (7.8-10.44); Estimated GFR-MDRD Greater than 90; Glucose 200 mg/dL (83-110); Magnesium 1.7 mg/dL (1.6-2.6); Phosphorus 3.1 mg/dL (2.3-4.7)
[2019-04-10 05:47] LABS: Anion Gap 12 mmol/L (10-20); Carbon Dioxide 40 mmol/L (23-31); Chloride 81 mmol/L (98-107); Potassium 3.2 mmol/L (3.5-5.1); Sodium 130 mmol/L (136-145)
[2019-04-10] MEDS: Benzonatate 100 MG CAP PO PRN ×2 (06:23→21:49)
[2019-04-10] MEDS ORDERED: Dextrose 5% in Water 1,000 ML IV PRN (08:41)
[2019-04-10] MEDS ORDERED: Dextrose 50% Abboject 50 ML SYRINGE SLOW IVP PRN (08:41)
[2019-04-10] MEDS: predniSONE 20 MG TAB PO SCH (08:46)
[2019-04-10] MEDS: Metolazone 5 MG TAB PO SCH (08:46)
[2019-04-10] MEDS: Furosemide 40 MG/4 ML VIAL SLOW IVP SCH ×2 (08:46→21:48)
[2019-04-10] MEDS ORDERED: Enoxaparin Sodium 60 MG/0.6 ML SYRINGE SC SCH (09:00)
[2019-04-10 09:34] LABS: Hemoglobin A1c 7.6 % (4.0-6.0)
[2019-04-10] MEDS: Polyethylene Glycol 3350 17 GM Packet PO SCH (11:16)
[2019-04-10] MEDS: Insulin Regular 300 UNITS/3 ML VIAL SC PRN ×3 (11:16→21:50)
--- NOTE | 2019-04-10 12:18 | PQF ---
YASH GOFF NIKKI, MD *r [id number] CLINICAL DOCUMENTATION IMPROVEMENT CLARIFICATION FORM: ICD-10 Updated PLEASE DO AN ADDENDUM TO THE PROGRESS NOTE WITH ANY DOCUMENTATION UPDATES OR ADDITIONS AND CARRY THROUGH TO DC SUMMARY. THANK YOU. DATE: 04/10/2019 ATTN:DR. Christoph ROMEO Please exercise your independent, professional judgment in responding to the clarification form. Clinical indicators are provided on the bottom of this form for your review. Please check appropriate box(s): [x] Hyponatremia please specify etiology, if known [ ] Hyponatremia due to SIADH (Syndrome of Inappropriate Secretion of Antidiuretic Hormone) [ ] Unable to determine In addition, please specify: Present on Admission (POA): [x] Yes [ ] No [ ] Unable to determine CLINICAL INDICATORS - SIGNS / SYMPTOMS / LABS / RESULTS AND LOCATION IN EMR 04/08 SODIUM 133 04/09 SODIUM 132 04/10 SODIUM 130 RISK: ADENOCARCINOMA RT LUNG, DIURETICS FOR CHF EXACERBATION (JIMMY/ H&P) 04/08 TREATMENTS: SERIAL LABS 04/08-PRESENT FLUID RESTRICTION (VEROINKA/H&P ) 04/08 THANK YOU! LORI (This form is maintained as a part of the permanent medical record) 2014 [employer] All Rights Reserved YANETH [email or web address] [phone] MTDD
[2019-04-10] MEDS: Gabapentin 300 MG CAP PO SCH (21:48)
--- NOTE | 2019-04-11 00:01 | CON ---
DATE OF CONSULTATION: 04/10/2019 REASON FOR CONSULTATION: Tachycardia-bradycardia syndrome. HISTORY OF PRESENT ILLNESS: Ms. Tellez is a pleasant 78-year-old white female with history of paroxysmal atrial fibrillation, diastolic heart failure, and recently diagnosed metastatic lung cancer. She was admitted earlier this year with atrial fibrillation and rapid ventricular response. Cardioversion was performed on amiodarone and metoprolol. She became bradycardic and was observed 2 days in the hospital. Amiodarone and metoprolol were discontinued. She was recently diagnosed with right lung cancer with hilar adenopathy. Lung cancer is stage 4. She has now started immunotherapy. She has a 1-month history of daily severe exertional dyspnea, relieved with rest and additionally she has orthopnea and edema. She was in atrial fibrillation with rapid ventricular response on arrival. She has been rate controlled and diuresed with intravenous Lasix. Her cough has improved. She is not quite able to lie flat yet; however, she is able to speak in complete sentences. PAST MEDICAL HISTORY: 1. Paroxysmal atrial fibrillation. 2. Tachycardia-bradycardia syndrome. 3. Metastatic lung cancer. 4. COPD. 5. Echocardiogram in February 2019; moderate left atrial enlargement with left ventricular ejection fraction of 50% to 55%. SOCIAL HISTORY: . Her is with her today. REVIEW OF SYSTEMS: Negative for fever, chills, melena, bright red blood per rectum, hematemesis, seizures, syncope, unilateral weakness or numbness, or speech deficits. PHYSICAL EXAMINATION: GENERAL: Alert and oriented x4, in no apparent distress. Well dressed and groomed. VITAL SIGNS: Blood pressure 123/58, pulse 102, respiratory rate 12, and oxygen saturation 94% on 3 L nasal cannula. NECK: No jugular venous distention. CARDIOVASCULAR: Tachycardic. Irregularly irregular rhythm. LUNGS: Decreased breath sound at the right base. ABDOMEN: Nontender, nondistended. EXTREMITIES: No cyanosis, clubbing, or edema. LABORATORY DATA: EKG; atrial fibrillation with incomplete right bundle branch block, anterior Q-waves, lateral ST depression. WBC 3.2, hemoglobin 12.8, and platelets 65,000. Sodium 130, potassium 3.2, creatinine 0.6, and glucose 200. IMPRESSION: 1. Paroxysmal atrial fibrillation, on Xarelto. 2. Tachycardia-bradycardia syndrome, unable to give rhythm or rate control medications. 3. Diastolic heart failure. Acute exacerbation of chronic diastolic heart failure, worsened by atrial fibrillation and rapid ventricular response. 4. Metastatic lung cancer. PLAN: We have discussed risks, benefits, and alternatives of permanent pacemaker implantation including but not limited to myocardial infarction, stroke, , pneumothorax, infection, need for device removal, pain, hematoma, and arm swelling. We will plan to do this on Saturday. We will hold [employer]. Job ID: [id number]
--- NOTE | 2019-04-11 06:04 | PDOC.FM ---
- Subjective Subjective: Pt notes some mild continued SOB this morning. States she agrees with need for pacemaker placement and thinks this is to be done Saturday. Denies any fever/ chills overnight. Notes continued LE edema. - Objective Vital Signs & Weight: Vital Signs (12 hours) Temp Pulse Resp BP Pulse Ox 04/11/19 04:00 98.1 F 93 20 103/50 L 98 04/11/19 00:17 86 18 94 L 04/10/19 20:00 97.4 F L 90 20 105/58 L Weight Weight 60.282 kg I&O: 04/09/19 04/10/19 04/11/19 06:59 06:59 06:59 Intake Total 480 1440 1340 Output Total 500 1610 1500 Balance -20 170 -160 Result Diagrams: 04/11/19 06:45 04/11/19 06:45 Phys Exam - Physical Examination Constitutional: NAD HEENT: PERRLA Dry MM Neck: supple, full ROM Poor air movement in all olivo, no extra lung sounds appreciated Cardiovascular: no significant murmur Irreg irreg Gastrointestinal: soft, non-tender Musculoskeletal: pulses present, edema present (2-3+ pitting edema) Neurological: non-focal, moves all 4 limbs Psychiatric: normal affect Skin: no rash, cap refill <2 seconds Dx/Plan (1) Tachy-lyubov syndrome Code(s): I49.5 - SICK SINUS SYNDROME Status: Acute (2) CHF exacerbation Code(s): I50.9 - HEART FAILURE, UNSPECIFIED Status: Acute (3) COPD exacerbation Code(s): J44.1 - CHRONIC OBSTRUCTIVE PULMONARY DISEASE W (ACUTE) EXACERBATION Status: Acute (4) Hypochloremic alkalosis Code(s): E87.3 - ALKALOSIS Status: Acute (5) Non-small cell lung cancer Code(s): C34.90 - MALIGNANT NEOPLASM OF UNSP PART OF UNSP BRONCHUS OR LUNG Status: Acute (6) Atrial fibrillation, persistent Code(s): I48.1 - PERSISTENT ATRIAL FIBRILLATION * DO NOT USE * Status: Chronic - Plan Plan: #CHF Exacerbation s/p 40mg IV lasix in the ER. 2+ pitting edema to level of the abdomen. BNP normal. - Patient seen by Dr. Wilson in the past; cardiology consult placed, appreciate recs - Echo done on 03/14 showing EF 50-55%, diastolic dysfxn not able to assess due to afib, mild-mod dilated LA, sclerotic aortic valve. - Will continue IV lasix BID - Will monitor I/Os - Cardiac rehab, PT/OT, Rehab screen #Afib w/ RVR (resolved) s/p diltizem and digoxin in the ER. Rate controlled on exam in the ER. EKG showing atrial fib. - Continue home meds - Cardiology, Dr. Wilson, consulted 04/09, appreciate recs - Rec'd eval by EP. Dr. Vargas saw pt and rec'd pacemaker placement Saturday for tachy-lyubov syndrome - Will hold Xarelto in mean time #COPD Exacerbation s/p levoquin, duoneb in the ER. Symptoms: increased cough, sputum production and color change. - CXR showing stable appearance from previous. 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 Per patient, needs a PICC line placed and will need to be off xarelto for 48hrs prior to this. - patient to f/u with oncology outpatient #Thrombocytopenia -looking through previous charts from February, appears to be chronic -followed by oncology #Hypochloremic metabolic alkalosis #Respiratory Acidosis -patient has known COPD -patient is on lasix, likely contraction alkalosis -will monitor #Hypokalemia -2.5 this morning -Will plan to replace 40meq x2 today, trend tomorrow Code:DNR VTE ppx: xarelto Diet: HH Dispo: continued diuresis and respiratory support, cardiology consulted, possible EP consult, appreciate recs
[2019-04-11 07:20] LABS: #Basophils 0.1 thou/uL (0.0-0.2); #Lymphocytes 0.6 thou/uL (1.20-3.40); #Monocytes 0.8 thou/uL (0.11-0.59); #Neutrophils 7.1 thou/uL (1.40-6.50); %Basophils 1.2 % (0.0-1.0); %Eosinophils 0.3 % (0.0-10.0); %Lymphocytes 6.9 % (21.0-51.0); %Monocytes 8.8 % (0.0-10.0); %Neutrophils 82.8 % (42.0-75.0); Hemoglobin 12.6 g/dL (12.0-16.0); Mean Corpuscular HGB CONC 32.8 g/dL (32.0-36.0); Mean Corpuscular Hemoglobin 27.2 pg (27.0-31.0); Mean Corpuscular Volume 82.8 fL (78.0-98.0); Mean Platelet Volume 12.5 fL (7.4-10.4); Platelet Count 79 thou/uL (130-400); RBC Distribution Width 13.5 % (11.5-14.5); Red Blood Cell (RBC) Count 4.65 mill/uL (4.20-5.40); White Blood Cell (WBC) Count 8.6 thou/uL (4.8-10.8)
[2019-04-11 07:37] LABS: BUN (Urea Nitrogen) 16 mg/dL (9.8-20.1); Calc. Creatinine Clearance 65 mL/min (70-130); Calcium 8.8 mg/dL (7.8-10.44); Estimated GFR-MDRD 88; Glucose 146 mg/dL (83-110)
[2019-04-11 07:47] LABS: Anion Gap 12 mmol/L (10-20); Sodium 128 mmol/L (136-145)
[2019-04-11 07:54] LABS: Carbon Dioxide 45 mmol/L (23-31); Chloride 74 mmol/L (98-107); Potassium 2.5 mmol/L (3.5-5.1)
[2019-04-11 08:40] LABS: BUN (Urea Nitrogen) 15 mg/dL (9.8-20.1); Calc. Creatinine Clearance 60 mL/min (70-130); Estimated GFR-MDRD 81; Glucose 146 mg/dL (83-110)
[2019-04-11 08:51] LABS: Anion Gap 13 mmol/L (10-20); Sodium 129 mmol/L (136-145)
[2019-04-11 08:58] LABS: Carbon Dioxide 46 mmol/L (23-31); Chloride 73 mmol/L (98-107); Potassium 2.5 mmol/L (3.5-5.1)
[2019-04-11] MEDS ORDERED: Potassium Chloride 20 MEQ TAB PO SCH ×2 (09:30→17:00)
[2019-04-11] MEDS: Metolazone 5 MG TAB PO SCH (09:32)
[2019-04-11] MEDS: Polyethylene Glycol 3350 17 GM Packet PO SCH (09:33)
[2019-04-11] MEDS: predniSONE 20 MG TAB PO SCH (09:33)
[2019-04-11] MEDS: Potassium Chloride 20 MEQ TAB PO SCH ×2 (09:34→16:29)
[2019-04-11] MEDS: Potassium Chloride 20 MEQ in Premix Bag 1 BAG IVPB SCH ×2 (09:35→14:07)
[2019-04-11] MEDS: Insulin Regular 300 UNITS/3 ML VIAL SC PRN ×3 (12:05→20:22)
[2019-04-11 14:13] LABS: BUN (Urea Nitrogen) 16 mg/dL (9.8-20.1); Calc. Creatinine Clearance 64 mL/min (70-130); Calcium 8.9 mg/dL (7.8-10.44); Estimated GFR-MDRD 86; Glucose 163 mg/dL (83-110)
[2019-04-11 14:22] LABS: Anion Gap 17 mmol/L (10-20); Carbon Dioxide 37 mmol/L (23-31); Chloride 75 mmol/L (98-107); Potassium 3.6 mmol/L (3.5-5.1); Sodium 125 mmol/L (136-145)
--- NOTE | 2019-04-11 16:47 | PRG ---
DATE OF SERVICE: 04/11/2019 Please see note from Dr. Schmitt, for which I agree. The patient was seen, evaluated, and discussed with the residents by the bedside and examined as well. Basically, she is here for CHF exacerbation and was found to have tachy-lyubov syndrome, and she is going to have a pacemaker in a couple of days. Hemoglobin A1c did come back showing a hemoglobin A1c of 7.6. She is a diabetic with a new diagnosis. This runs in her family, but now, she can change the diet quite a bit. Does have COPD. It is a little bit flared up and giving her medicines for that. Came in with atrial fibrillation and rapid ventricular response, but now is doing better. Has right lung adenocarcinoma. It is fairly a new diagnosis and is being followed up with Oncology for that. For the diabetes, we are going to just do diet changes and not start any medicines considering high risk for needing a lot of contrast procedures, etc., so we worry a little about metformin, worry about some other side effects with some of the other medicines that she may be on. I am just watching her until she gets the pacemaker placed on Saturday. Job ID: [id number]
[2019-04-11] MEDS: Gabapentin 300 MG CAP PO SCH (20:24)
[2019-04-12 04:32] LABS: #Lymphocytes 0.6 thou/uL (1.20-3.40); #Monocytes 0.5 thou/uL (0.11-0.59); #Neutrophils 5.9 thou/uL (1.40-6.50); %Basophils 0.2 % (0.0-1.0); %Eosinophils 0.6 % (0.0-10.0); %Lymphocytes 8.1 % (21.0-51.0); %Monocytes 7.4 % (0.0-10.0); %Neutrophils 83.7 % (42.0-75.0); Hemoglobin 12.3 g/dL (12.0-16.0); Mean Corpuscular HGB CONC 32.4 g/dL (32.0-36.0); Mean Corpuscular Volume 83.3 fL (78.0-98.0); Mean Platelet Volume 12.5 fL (7.4-10.4); Platelet Count 75 thou/uL (130-400); RBC Distribution Width 13.4 % (11.5-14.5); Red Blood Cell (RBC) Count 4.56 mill/uL (4.20-5.40); White Blood Cell (WBC) Count 7.1 thou/uL (4.8-10.8)
[2019-04-12 04:47] LABS: BUN (Urea Nitrogen) 14 mg/dL (9.8-20.1); Calc. Creatinine Clearance 69 mL/min (70-130); Calcium 8.6 mg/dL (7.8-10.44); Estimated GFR-MDRD Greater than 90; Glucose 153 mg/dL (83-110)
[2019-04-12 04:56] LABS: Anion Gap 12 mmol/L (10-20); Carbon Dioxide 38 mmol/L (23-31); Chloride 80 mmol/L (98-107); Potassium 3.4 mmol/L (3.5-5.1); Sodium 127 mmol/L (136-145)
--- NOTE | 2019-04-12 06:11 | PDOC.FM ---
- Subjective Subjective: Pt notes improvement in her SOB as well as decreased swelling in her lower extremities. Notes good diuresis yesterday after receiving diamox. - Objective Vital Signs & Weight: Vital Signs (12 hours) Temp Pulse Resp BP Pulse Ox 04/12/19 04:00 97.8 F 89 20 109/59 L 92 L 04/12/19 00:55 77 18 94 L 04/11/19 20:00 98 F 88 20 106/54 L 92 L 04/11/19 18:48 86 16 94 L Weight Weight 60.01 kg I&O: 04/10/19 04/11/19 04/12/19 06:59 06:59 06:59 Intake Total 1440 1440 1400 Output Total 1610 3050 700 Balance -170 -1610 700 Result Diagrams: 04/12/19 04:05 04/12/19 04:05 Phys Exam - Physical Examination Constitutional: NAD HEENT: moist MMs, sclera anicteric Neck: full ROM Poor air movement throughout, scattered rhonchi Irreg irreg Gastrointestinal: soft, non-tender Musculoskeletal: pulses present, edema present (1-2+ pitting edema) Neurological: non-focal, moves all 4 limbs Psychiatric: normal affect, A&O x 3 Skin: no rash, cap refill <2 seconds Dx/Plan (1) Tachy-lyubov syndrome Code(s): I49.5 - SICK SINUS SYNDROME Status: Acute (2) CHF exacerbation Code(s): I50.9 - HEART FAILURE, UNSPECIFIED Status: Acute (3) COPD exacerbation Code(s): J44.1 - CHRONIC OBSTRUCTIVE PULMONARY DISEASE W (ACUTE) EXACERBATION Status: Acute (4) Hypochloremic alkalosis Code(s): E87.3 - ALKALOSIS Status: Acute (5) Non-small cell lung cancer Code(s): C34.90 - MALIGNANT NEOPLASM OF UNSP PART OF UNSP BRONCHUS OR LUNG Status: Acute (6) Atrial fibrillation, persistent Code(s): I48.1 - PERSISTENT ATRIAL FIBRILLATION * DO NOT USE * Status: Chronic - Plan Plan: #CHF Exacerbation s/p 40mg IV lasix in the ER. 2+ pitting edema to level of the abdomen. BNP normal. - Patient seen by Dr. Wilson in the past; cardiology consult placed, appreciate recs - Echo done on 03/14 showing EF 50-55%, diastolic dysfxn not able to assess due to afib, mild-mod dilated LA, sclerotic aortic valve. - Will continue IV lasix BID - Will monitor I/Os - Cardiac rehab, PT/OT, Rehab screen #Afib w/ RVR (resolved) s/p diltizem and digoxin in the ER. Rate controlled on exam in the ER. EKG showing atrial fib. - Continue home meds - Cardiology, Dr. Wilson, consulted 04/09, appreciate recs - Rec'd eval by EP. Dr. Vargas saw pt and rec'd pacemaker placement Saturday for tachy-lyubov syndrome - Will hold Xarelto in mean time #COPD Exacerbation s/p levoquin, duoneb in the ER. Symptoms: increased cough, sputum production and color change. - CXR showing stable appearance from previous. 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 Per patient, needs a PICC line placed and will need to be off xarelto for 48hrs prior to this. - patient to f/u with oncology outpatient #Thrombocytopenia -looking through previous charts from February, appears to be chronic -followed by oncology #Hypochloremic metabolic alkalosis #Respiratory Acidosis -patient has known COPD and lung CA -added diamox yesterday, improvement in bicarb level and better urine output, will continue today #Hypokalemia -3.4 this morning -40meq today PO Code:DNR VTE ppx: (holding xarelto for procedure) Diet: HH Dispo: continued diuresis and respiratory support, cardiology consulted, possible EP consult, appreciate recs
[2019-04-12] MEDS ORDERED: Potassium Chloride 20 MEQ TAB PO SCH (06:15)
[2019-04-12 06:31] LABS: Phosphorus 3.1 mg/dL (2.3-4.7)
[2019-04-12] MEDS: predniSONE 20 MG TAB PO SCH (08:31)
[2019-04-12] MEDS: Metolazone 5 MG TAB PO SCH (08:31)
[2019-04-12] MEDS: acetaZOLAMIDE Sodium 500 mg Vial IVP SCH (08:31)
[2019-04-12] MEDS: Polyethylene Glycol 3350 17 GM Packet PO SCH (08:31)
[2019-04-12 09:49] LABS: Hemoglobin 13.7 g/dL (12.0-16.0); Platelet Count 85 thou/uL (130-400)
[2019-04-12] MEDS: Insulin Regular 300 UNITS/3 ML VIAL SC PRN ×3 (11:41→20:23)
--- NOTE | 2019-04-12 12:38 | PRG ---
DATE OF SERVICE: 04/12/2019 CHIEF COMPLAINT: Dyspnea. SUBJECTIVE: Breathing improved. Orthopnea improved. Continues to have mild dyspnea. No chest discomfort, syncope or falls. OBJECTIVE: GENERAL: Alert and oriented x4. No apparent distress. VITAL SIGNS: Temperature 97.8, pulse 88, respiratory rate 12, oxygen saturation 92% on 3 L nasal cannula. Blood pressure 114/55. HEENT: No lesions. Sclerae clear. SKIN: No lesions. CARDIOVASCULAR: Regular rate and rhythm. No murmurs, gallops, or rubs. LUNGS: Decreased breath sounds, right base. EXTREMITIES: No cyanosis, clubbing, or edema. LABORATORY DATA: Hemoglobin 13.7, hematocrit 41.4, platelets 85,000. Sodium 127, potassium 3.4, BUN 14, creatinine 0.6. IMPRESSION: 1. 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 2. Paroxysmal atrial fibrillation, now persistent with rapid ventricular response. 3. Acute on chronic diastolic heart failure, likely worsened by her atrial fibrillation rapid ventricular response. She has responded well to diuretic therapy. PLAN: Permanent pacemaker tomorrow. Her Xarelto has been held. We have discussed the risks, benefits, and alternatives including, but not limited to myocardial infarction, stroke, , pneumothorax, infection, need for device removal, hematoma, lead dislodgement, need for revision, pericardial effusion, vessel thrombosis with arm swelling. She is agreeable to proceed. We will premedicate her with vancomycin. Job ID: [id number]
--- NOTE | 2019-04-12 13:36 | PRG ---
DATE OF SERVICE: 04/12/2019 Please see the note from Dr. Schmitt, for which I agree. The patient was seen, evaluated, discussed, and examined with the residents by bedside. The patient's bicarb came down on the Diamox, got another liter, diuresed and feels better. Breathing a little bit better. Has definitely needing nebulizers q.i.d. for her COPD, but it sounds like she is improving. She is on the schedule for a pacemaker in the morning. Then otherwise I anticipate being discharged within 24 hours, after that it is placed for her sick sinus syndrome, tachy-lyubov arrhythmia issues. Question on her is now that she is having her anticoagulants held. Should we get a port placed for her cancer therapy at the same time tomorrow. She could get her pacemaker and so we will consult surgery to see if they wanted to do at the same time or at a different time. Job ID: [id number]
--- NOTE | 2019-04-12 16:29 | EKG ---
Test Reason : Blood Pressure : / mmHG Vent. Rate : 098 BPM Atrial Rate : 340 BPM P-R Int : 000 ms QRS Dur : 094 ms QT Int : 340 ms P-R-T Axes : 000 -02 094 degrees QTc Int : 434 ms Atrial fibrillation Incomplete right bundle branch block Anterior infarct , age undetermined Marked ST abnormality, possible lateral subendocardial injury Abnormal ECG Confirmed by DR. Kenia GUTIERREZ ([id number]) on 04/12/2019 4:28:40 PM Referred By: Confirmed By:DR. Kenia GUTIERREZ
[2019-04-12] MEDS: Gabapentin 300 MG CAP PO SCH (19:56)
--- NOTE | 2019-04-12 20:56 | CON ---
DATE OF CONSULTATION: HISTORY OF PRESENT ILLNESS: Tasha Tellez is an 78-year-old female with bronchogenic carcinoma, right chest and in need of a pacemaker to be placed in the morning. I spoke with the laboratory analyst and they were unwilling to accommodate MediPort placement during the same time of placement of the pacemaker as they were uncomfortable with that procedure. Thus, we will plan this after that procedure later in the morning. I have been asked by Oncology to place the MediPort. She is admitted by the family practice service. ALLERGIES: NONE. MEDICATIONS: At home, 1. Vitamins. 2. Gabapentin. 3. Protonix. 4. Levothyroxine. 5. Digoxin. 6. Furosemide. 7. Diltiazem. 8. Potassium benzoate. PAST MEDICAL HISTORY: Atrial fibrillation, adenocarcinoma of the lung, stage IV, right lung, COPD. PAST SURGICAL HISTORY: Cholecystectomy, cataracts, back surgery, tubal ligation. SOCIAL HISTORY: Tobacco cessation 20 years ago. Occasional alcohol. The patient lives with her in [place] with her children, who helps him with daily activities. PHYSICAL EXAMINATION: VITAL SIGNS: Height 5 feet 2 inches, weight 132 pounds, 24 BMI, temperature 97.6, pulse 82, blood pressure 111/58. HEAD, EARS, EYES, NOSE, AND THROAT: Unremarkable. LUNGS: Clear to auscultation. CARDIAC: Regular rate and rhythm without murmur or gallop. ABDOMEN: Soft and nontender. ASSESSMENT AND PLAN: Bronchogenic carcinoma. PLAN: Placement of MediPort, low profile. She understands risks, benefits, and consents. Job ID: [id number]
[2019-04-13] MEDS ORDERED: Vancomycin 1.5 GRAM/300 ML BAG 1.5 GM in Premix Bag 1 BAG IVPB SCH (05:30)
--- NOTE | 2019-04-13 05:52 | PDOC.FM ---
- Subjective Subjective: Pt c/o body aches this morning, feeling sore from lying in bed. Pt anticipating surgery this morning. No overnight events. - Objective MAR Reviewed: Yes Vital Signs & Weight: Vital Signs (12 hours) Temp Pulse Resp BP Pulse Ox 04/13/19 04:00 98.4 F 82 16 120/70 94 L 04/13/19 00:23 85 16 04/12/19 20:00 97.7 F 82 24 H 131/79 93 L 04/12/19 18:51 82 20 92 L Weight Weight 60.01 kg I&O: 04/11/19 04/12/19 04/13/19 06:59 06:59 06:59 Intake Total 1440 1400 840 Output Total 3050 700 2100 Balance -1610 700 -1260 Result Diagrams: 04/13/19 06:09 04/13/19 06:09 Phys Exam - Physical Examination Constitutional: NAD HEENT: moist MMs, sclera anicteric Neck: no nodes, supple, full ROM Respiratory: no wheezing, no rales, no rhonchi, clear to auscultation bilateral Cardiovascular: RRR, no significant murmur, no rub Gastrointestinal: soft, non-tender, no distention, positive bowel sounds Musculoskeletal: no edema, pulses present Psychiatric: normal affect Skin: no rash, normal turgor, cap refill <2 seconds Dx/Plan (1) Tachy-lyubov syndrome Code(s): I49.5 - SICK SINUS SYNDROME Status: Acute (2) Adenocarcinoma Code(s): C80.1 - MALIGNANT (PRIMARY) NEOPLASM, UNSPECIFIED Status: Chronic (3) COPD exacerbation Code(s): J44.1 - CHRONIC OBSTRUCTIVE PULMONARY DISEASE W (ACUTE) EXACERBATION Status: Acute (4) CHF exacerbation Code(s): I50.9 - HEART FAILURE, UNSPECIFIED Status: Acute (5) Hypochloremic alkalosis Code(s): E87.3 - ALKALOSIS Status: Acute (6) Non-small cell lung cancer Code(s): C34.90 - MALIGNANT NEOPLASM OF UNSP PART OF UNSP BRONCHUS OR LUNG Status: Acute (7) Atrial fibrillation, persistent Code(s): I48.1 - PERSISTENT ATRIAL FIBRILLATION * DO NOT USE * Status: Chronic (8) Hyponatremia Code(s): E87.1 - HYPO-OSMOLALITY AND HYPONATREMIA Status: Acute - Plan Plan: 1. CHF Exacerbation s/p 40mg IV lasix in the ER. 2+ pitting edema to level of the abdomen. BNP normal. - Patient seen by Dr. Wilson in the past; cardiology consult placed, appreciate recs - Echo done on 03/14 showing EF 50-55%, diastolic dysfxn not able to assess due to afib, mild-mod dilated LA, sclerotic aortic valve. - Will continue IV lasix BID - Will monitor I/Os - Cardiac rehab, PT/OT, Rehab screen 2. Afib w/ RVR (resolved) s/p diltiazem and digoxin in the ER. Rate controlled on exam in the ER. EKG showing atrial fib. - Continue home meds - Cardiology, Dr. Wilson, consulted 04/09, appreciate recs - Rec'd eval by EP. Dr. Vargas saw pt and rec'd pacemaker placement Saturday for tachy-lyubov syndrome - Will hold Xarelto in mean time - Vanc started 10 AM 04/13. 3. COPD Exacerbation s/p levoquin, duoneb in the ER. Symptoms: increased cough, sputum production and color change. - CXR showing stable appearance from previous. No consolidation noted - on 3L of O2 at home, at baseline - Procal 0.03, neg - Flu swab pending - Duoneb GENEVIEVE q6hrs, PRN 3hrs - Continuous O2 monitoring - keep O2 sats between 88-92% - Given 2 doses IV steroids, continue PO - On levofloxacin for COPD exacerbation, transitioned to PO abx 04/09 4. 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 Per patient, needs a PICC line placed and will need to be off xarelto for 48hrs prior to this. - patient to f/u with oncology outpatient 5. Thrombocytopenia -looking through previous charts from February, appears to be chronic -followed by oncology 6. Hypochloremic metabolic alkalosis #Respiratory Acidosis -patient has known COPD and lung CA -added diamox yesterday, improvement in bicarb level and better urine output, will continue today 7. Hypokalemia - K+ 3.0 , 04/13/19. - 20 mEq KCl, X2 doses this 04/13. 8. Hyponatremia - likely hypovolemic hyponatremia 2/2 diuresis. - Na+ 122, has gradually down trended from 133 upon admission. - Will adjust diuretic medications, and continue fluid restriction. Code:DNR VTE ppx: (holding xarelto for procedure) Diet: HH Dispo: continued diuresis and respiratory support, cardiology consulted, possible EP consult, appreciate recs
[2019-04-13] MEDS ORDERED: Gentamicin 80 MG/2 ML VIAL ONE (06:51)
[2019-04-13] MEDS ORDERED: CEFAZOLIN 1 GM VIAL ONE (06:51)
[2019-04-13 06:58] LABS: Hemoglobin 15.1 g/dL (12.0-16.0); Mean Corpuscular HGB CONC 32.3 g/dL (32.0-36.0); Mean Corpuscular Volume 83.7 fL (78.0-98.0); Mean Platelet Volume 8.3 fL (7.4-10.4); Platelet Count 75 thou/uL (130-400); RBC Distribution Width 13.6 % (11.5-14.5); Red Blood Cell (RBC) Count 5.58 mill/uL (4.20-5.40); White Blood Cell (WBC) Count 10.3 thou/uL (4.8-10.8)
[2019-04-13 07:04] LABS: Anion Gap 11 mmol/L (10-20); BUN (Urea Nitrogen) 13 mg/dL (9.8-20.1); Calc. Creatinine Clearance 73 mL/min (70-130); Calcium 9.2 mg/dL (7.8-10.44); Carbon Dioxide 30 mmol/L (23-31); Chloride 84 mmol/L (98-107); Estimated GFR-MDRD Greater than 90; Glucose 114 mg/dL (83-110); Sodium 122 mmol/L (136-145)
[2019-04-13] MEDS ORDERED: Sterile Water 10 ML VIAL FS PRN (09:22)
[2019-04-13] MEDS: predniSONE 20 MG TAB PO SCH (09:23)
[2019-04-13] MEDS: Metolazone 5 MG TAB PO SCH (09:24)
[2019-04-13] MEDS: acetaZOLAMIDE Sodium 500 mg Vial IVP SCH (09:24)
[2019-04-13] MEDS: Potassium Chloride 20 MEQ in Premix Bag 1 BAG IVPB SCH ×2 (09:24→14:13)
[2019-04-13] MEDS: Polyethylene Glycol 3350 17 GM Packet PO SCH (09:24)
--- NOTE | 2019-04-13 09:32 | OP ---
DATE OF PROCEDURE: 04/13/2019 REFERRING CARGO SERVICE SUPERVISOR: Rashad Wilson MD. IMPLANTING CARGO SERVICE SUPERVISOR: Adriel Vargas MD. INDICATION FOR DEVICE: 1. Tachycardia-bradycardia syndrome. 2. Symptomatic bradycardia. 3. Paroxysmal atrial fibrillation. PROCEDURE: 1. Medtronic MRI-conditional dual chamber pacemaker insertion [id number]. 2. Generator Tonya XT [id number], serial #[id number]. 3. Atrial lead model 5076-45, serial #[id number]. 4. RV lead model #5076-52, serial #[id number]. BARIATRIC PHYSICIAN: None. SPECIMENS: None. COMPLICATIONS: None. ESTIMATED BLOOD LOSS: Less than 10 mL. DESCRIPTION OF PROCEDURE: Risks, benefits, alternatives were discussed prior to procedure. The patient was brought electively to the cardiac catheterization lab, prepped and draped in a sterile fashion. Intravenous antibiotics were administered. Venogram was performed which showed normal left subclavian anatomy and lidocaine was infiltrated in the subcuticular area. Incision was made. Pocket was formed in left pectoral region. Prepectoral pocket was formed. Left subclavian venous access was used using the first rib approach twice with standard Seldinger technique. Two 7-Malay sheath introducers were placed. Leads were placed and actively fixed in the right ventricular apex and right atrial appendage. They were sewed to the fascia with 0 silk suture. There was no diaphragmatic stimulation at maximum output. Pocket was visually irrigated with antibiotic solution. The device was connected to the leads. The device was placed in antibiotic envelope and placed in the pocket. The pocket was closed with 2-0 Stratafix PDS Plus and 4-0 Stratafix Monocryl. Dermabond was then placed to the site. Baseline rhythm was atrial fibrillation. ANESTHESIA: Local. PLAN: 1. Return to the floor. 2. Hold Lovenox or Eliquis for 72 hours. 3. No lifting more than 10 pounds for 2 weeks. 4. Follow up with [facility] in 2 weeks. We will arrange appointment. Job ID: [id number]
[2019-04-13 10:02] LABS: Band 5 % (5-11); Lymphocytes 15 % (21-51); MDiff Complete? YES; Monocytes 5 % (0-10); Neutrophil 72 % (42-75); Platelet Morphology Comment Appears Decreased; RBC Morphology Normal; Reactive Lymphocytes 3 % (0-10)
--- NOTE | 2019-04-13 10:50 | RAD ---
CHEST 1 VIEW: INDICATION: Status post cardiac device placement. COMPARISON: Prior exam dated 04/08/2019. FINDINGS: There is a new dual-lead pacemaker overlying the left chest wall. Pacemaker leads and generator pack project in the expected position. Large left pleural effusion persists. Mild cardiomegaly is stabl e. Pulmonary vascular congestion persists. No pneumothorax is evident. IMPRESSION: New cardiac device placement as above. POS: [facility]
[2019-04-13] MEDS ORDERED: Lidocaine 2% PF 5 ML VIAL ONE (16:17)
[2019-04-13] MEDS ORDERED: Bupivacaine/Epinephrine 0.5% 10 ML VIAL ONE ×2 (16:17)
[2019-04-13] MEDS ORDERED: Fentanyl 100 MCG/2 ML VIAL ONE (16:29)
[2019-04-13] MEDS ORDERED: Dexmedetomidine 200 MCG/2 ML VIAL ONE (16:51)
--- NOTE | 2019-04-13 17:29 | PRG ---
DATE OF SERVICE: 04/13/2019 Ms. Tellez is a pleasant 78-year-old lady, who was admitted with an exacerbation of COPD, atrial fibrillation, and findings of a lung mass. She also is now currently being treated for hyponatremia, which may be related to her use of Zaroxolyn. We will stop her Zaroxolyn and reduce somewhat her diuresis that she has diuresed very well. She also has a history of "heart failure," although the EF is 50% to 55% and we could not demonstrate any diastolic dysfunction due to the atrial fibrillation. She may also have an element of cor pulmonale secondary to her advanced COPD and is recovering well from exacerbation thereof. This very complicated lady will likely be ready for discharge in a day or two. Job ID: [id number]
[2019-04-13] MEDS ORDERED: traMADol HCl 50 MG TAB PO PRN (17:57)
[2019-04-13] MEDS ORDERED: Ondansetron HCl/PF 4 MG/2 ML Vial IVP PRN (17:58)
[2019-04-13] MEDS ORDERED: Promethazine HCl 25 MG/ML VIAL SLOW IVP PRN (17:58)
[2019-04-13] MEDS ORDERED: Promethazine HCl 25 MG/ML VIAL IM PRN (17:58)
--- NOTE | 2019-04-13 18:17 | RAD ---
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 COMPARISON: 04/13/2019 8:57 AM FINDINGS: There is a new right subclavian implantable vascular access port with distal tip overlying SVC. No pn eumothorax is identified. Again noted is the opacification of lower half of the right lung due to dense consolidation and/or mass with associated small right pleural effusion. Left lung remains relat ively clear. Dual-lead left subclavian pacemaker remains. No cardiomegaly. IMPRESSION: 1) right-sided subclavian implantable vascular access port placement without pneumothorax. 2) no other interval change. 3) large dense opacification of lower half of right lung. Small right pleural effusion.
[2019-04-13] MEDS ORDERED: Sodium Chloride 0.9% 500 ML IVPB ONE (20:30)
[2019-04-13] MEDS: Insulin Regular 300 UNITS/3 ML VIAL SC PRN (21:10)
[2019-04-13] MEDS: Benzonatate 100 MG CAP PO PRN (21:12)
[2019-04-13] MEDS: Gabapentin 300 MG CAP PO SCH (21:13)
--- NOTE | 2019-04-14 01:53 | OP ---
DATE OF PROCEDURE: 04/13/2019 PREOPERATIVE DIAGNOSES: Lung cancer, bronchogenic carcinoma, and poor intravenous access. POSTOPERATIVE DIAGNOSES: Lung cancer, bronchogenic carcinoma, and poor intravenous access. PROCEDURES PERFORMED: Right subclavian vein low-profile MediPort. ANESTHESIA: Intravenous sedation, local, 0.5% Marcaine with epinephrine 30 mL, mixed with 2% Xylocaine, 10 mL. DESCRIPTION OF PROCEDURE: The patient was taken to the operating room, where under intravenous sedation, chest and neck were prepared with ChloraPrep and draped in routine fashion. Local anesthetic mixture was infiltrated into the skin and subcutaneous tissue about the operative site. Infraclavicular approach used to access the subclavian vein, J-wire threaded, trocar catheter removed. Skin incision was enlarged sharply and a subcutaneous pocket created with blunt and sharp dissection, noting good hemostasis. Dilator and Peel-Away sheath placed over the J-wire and the dilator and J-wire were removed. Catheter was placed over the Peel-Away sheath. Fluoroscopic images revealed that it was in the internal jugular vein. I then used a J-wire and the catheter to try to reposition it, but lost access, so the access had to be removed. A new Mediport obtained and trocar catheter was recannulated in the subclavian vein. After persistent effort, I was able to direct the J-wire into the superior vena cava. Dilator and J-wire were replaced. The J-wire and dilator removed. Catheter placed through the Peel-Away sheath. Peel-Away sheath was removed. Catheter tip was placed in optimal position in the superior vena, tailored to length, connected to the MediPort, secured it with 2 interrupted suture of 3-0 Prolene. Subcutaneous tissue was approximated with 3-0 Monocryl, skin with subdermal 4-0 Monocryl and Almont glue applied. MediPort accessed with a Geiger needle, aspirated blood, flushed with heparinized saline solution. Fluoroscopic images revealed good line placement. The patient tolerated the procedure well. Job ID: [id number]
[2019-04-14 04:26] LABS: Hemoglobin 13.2 g/dL (12.0-16.0); Lymphocytes 4 % (21-51); MDiff Complete? YES; Mean Corpuscular HGB CONC 33.6 g/dL (32.0-36.0); Mean Corpuscular Hemoglobin 27.6 pg (27.0-31.0); Mean Corpuscular Volume 82.2 fL (78.0-98.0); Mean Platelet Volume 11.1 fL (7.4-10.4); Monocytes 7 % (0-10); Neutrophil 89 % (42-75); Platelet Count 62 thou/uL (130-400); Platelet Morphology Comment Appears Decreased; RBC Distribution Width 13.4 % (11.5-14.5); White Blood Cell (WBC) Count 9.6 thou/uL (4.8-10.8)
[2019-04-14 04:34] LABS: Anion Gap 12 mmol/L (10-20); BUN (Urea Nitrogen) 15 mg/dL (9.8-20.1); Calc. Creatinine Clearance 73 mL/min (70-130); Calcium 8.8 mg/dL (7.8-10.44); Carbon Dioxide 28 mmol/L (23-31); Chloride 89 mmol/L (98-107); Estimated GFR-MDRD Greater than 90; Glucose 132 mg/dL (83-110); Sodium 126 mmol/L (136-145)
[2019-04-14 04:39] LABS: Potassium 2.9 mmol/L (3.5-5.1)
[2019-04-14] MEDS ORDERED: Potassium Chloride 20 MEQ TAB PO SCH ×2 (05:00→08:00)
--- NOTE | 2019-04-14 06:22 | PDOC.FM ---
- Subjective Subjective: Patient no acute over night events. Patient denies any chest pain or shortness of breath. Patient sleeping resting in bed comfortably upon entry to the room. Yesterday patient underwent procedures to have a pacemaker and Mediport placed. PT tolerated procedure well. Has had lower BP's since procedure and given IVF's accordingly. - Objective MAR Reviewed: Yes Vital Signs & Weight: Vital Signs (12 hours) Temp Pulse Resp BP Pulse Ox 04/14/19 04:00 98.5 F 85 20 113/59 L 96 04/14/19 00:46 85 16 04/14/19 00:00 75 92/55 L 95 04/13/19 22:18 68 102/57 L 04/13/19 21:15 81 97/55 L 04/13/19 19:50 97.9 F 65 17 84/52 L 94 L Weight Weight 58.876 kg I&O: 04/12/19 04/13/19 04/14/19 06:59 06:59 06:59 Intake Total 1400 840 850 Output Total 700 2100 1800 Balance 700 -1260 -950 Result Diagrams: 04/14/19 03:41 04/14/19 03:41 Phys Exam - Physical Examination Constitutional: NAD HEENT: moist MMs, sclera anicteric Neck: no nodes, no JVD, supple, full ROM Respiratory: no wheezing, no rales, no rhonchi, clear to auscultation bilateral Cardiovascular: RRR, no significant murmur, no rub Gastrointestinal: soft, non-tender, no distention, positive bowel sounds Musculoskeletal: no edema, pulses present Psychiatric: normal affect Skin: no rash, normal turgor, cap refill <2 seconds Dx/Plan (1) Tachy-lyubov syndrome Code(s): I49.5 - SICK SINUS SYNDROME Status: Acute (2) Adenocarcinoma Code(s): C80.1 - MALIGNANT (PRIMARY) NEOPLASM, UNSPECIFIED Status: Chronic (3) COPD exacerbation Code(s): J44.1 - CHRONIC OBSTRUCTIVE PULMONARY DISEASE W (ACUTE) EXACERBATION Status: Acute (4) CHF exacerbation Code(s): I50.9 - HEART FAILURE, UNSPECIFIED Status: Acute (5) Hypochloremic alkalosis Code(s): E87.3 - ALKALOSIS Status: Acute (6) Non-small cell lung cancer Code(s): C34.90 - MALIGNANT NEOPLASM OF UNSP PART OF UNSP BRONCHUS OR LUNG Status: Acute (7) Atrial fibrillation, persistent Code(s): I48.1 - PERSISTENT ATRIAL FIBRILLATION * DO NOT USE * Status: Chronic (8) Hyponatremia Code(s): E87.1 - HYPO-OSMOLALITY AND HYPONATREMIA Status: Acute (9) S/P placement of cardiac pacemaker Code(s): Z95.0 - PRESENCE OF CARDIAC PACEMAKER Status: Acute - Plan Plan: 1. CHF Exacerbation, improving. s/p 40mg IV lasix in the ER. 2+ pitting edema to level of the abdomen, improved. BNP normal. - Patient seen by Dr. Wilson in the past; cardiology consult placed, appreciate recs - Echo done on 03/14 showing EF 50-55%, diastolic dysfxn not able to assess due to afib, mild-mod dilated LA, sclerotic aortic valve. - Holding diuretics and will use PRN. - Will monitor I/Os - Cardiac rehab, PT/OT, Rehab screen 2. Afib w/ RVR (resolved) s/p diltiazem and digoxin in the ER. Rate controlled on exam in the ER. EKG showing atrial fib. - Continue home meds - Cardiology, Dr. Wilson, consulted 04/09, appreciate recs - Rec'd eval by EP. Dr. Vargas saw pt and rec'd pacemaker placement Saturday for tachy-lyubov syndrome - Will hold Xarelto in mean time - Vanc started 10 AM 04/13. 3. COPD Exacerbation s/p levoquin, duoneb in the ER. Symptoms: increased cough, sputum production and color change. - CXR showing stable appearance from previous. No consolidation noted - on 3L of O2 at home, at baseline - Procal 0.03, neg - Flu swab pending - Duoneb GENEVIEVE q6hrs, PRN 3hrs - Continuous O2 monitoring - keep O2 sats between 88-92% - Given 2 doses IV steroids, continue PO - On levofloxacin for COPD exacerbation, transitioned to PO abx 04/09 4. 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 Per patient, needs a PICC line placed and will need to be off xarelto for 48hrs prior to this. - patient to f/u with oncology outpatient 5. Thrombocytopenia -looking through previous charts from February, appears to be chronic -followed by oncology 6. Hypochloremic metabolic alkalosis #Respiratory Acidosis -patient has known COPD and lung CA -Diamox d/c'd. - Will discharge on Spiriva, continue Duonebs BID/PRN in hx. 7. Hypokalemia - K+ 3.0 , 04/13/19. 2.9 04/14 - 20 mEq KCl, X2 doses 04/13. - Gave 40 meq K-dur X1 and 20 meq X1 04/14 AM. - Recheck at noon. 8. Hyponatremia - likely hypovolemic hyponatremia 2/2 diuresis. - Na+ 122 on 04/13, has gradually down trended from 133 upon admission. 127 on 04/14. Improving - Will adjust diuretic medications, and continue fluid restriction. Code:DNR VTE ppx: (holding xarelto for procedure) Diet: HH Dispo: continued diuresis and respiratory support, cardiology consulted, possible EP consult, appreciate recs
[2019-04-14] MEDS: predniSONE 20 MG TAB PO SCH (08:41)
[2019-04-14] MEDS: Polyethylene Glycol 3350 17 GM Packet PO SCH (08:42)
--- NOTE | 2019-04-14 08:54 | PRG ---
DATE OF SERVICE: 04/14/2019 SUBJECTIVE: Left chest soreness at her pacemaker site. Dyspnea is improved. No syncope, falls, or palpitations. OBJECTIVE: GENERAL: Alert and oriented x4. No apparent distress. VITAL SIGNS: Temperature 98.5, pulse 89, respiratory rate 12, and blood pressure 113/59. HEENT: No lesions. Sclerae clear. SKIN: Incision well healing. No hematoma. Incision intact, clean, and dry. LABORATORY DATA: WBC 9.6, hemoglobin 13.2, hematocrit 39.4, platelets 62,000. Sodium 126, potassium 2.9, and creatinine 0.6. Telemetry, atrial fibrillation. IMPRESSION AND PLAN: 1. 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 Dual chamber pacemaker in place. 2. Persistent atrial fibrillation, off anticoagulation due to procedure. 3. Acute on chronic diastolic heart failure, improved. 4. Hypokalemia. RECOMMENDATIONS: 1. Restart Xarelto on , April 16. 2. Restart amiodarone and metoprolol at previous outpatient dosages. 3. We will follow up in my clinic in approximately 2 weeks. 4. Plan cardioversion after loading with amiodarone and 3 weeks of Eliquis. 5. No antibiotics needed as an absorbable antibiotic sleeve was placed over the pacemaker during the procedure. Sleeve contains minocycline and rifampin. Job ID: [id number]
--- NOTE | 2019-04-14 11:54 | PRG ---
DATE OF SERVICE: 04/14/2019 Ms. Tellez is sitting comfortably in bed, in no distress. She did complain about a very sore tongue and was noted to have thrush. We will start her on nystatin oral solution for her. We also appreciated the input from the Cardiology and pacemaker team. They recommend that she restart her Xarelto tomorrow. She has already been started back on her amiodarone and metoprolol and will follow up with the pacemaker placement physicians in about 2 weeks. She will be attempting planned cardioversion after three weeks of Xarelto. Otherwise, she is ready for discharge home or rehab placement. Job ID: [id number]
[2019-04-14] MEDS: Insulin Regular 300 UNITS/3 ML VIAL SC PRN ×3 (12:41→21:00)
[2019-04-14 13:01] LABS: Anion Gap 10 mmol/L (10-20); BUN (Urea Nitrogen) 15 mg/dL (9.8-20.1); Calc. Creatinine Clearance 62 mL/min (70-130); Calcium 9.1 mg/dL (7.8-10.44); Carbon Dioxide 31 mmol/L (23-31); Chloride 88 mmol/L (98-107); Estimated GFR-MDRD 85; Glucose 276 mg/dL (83-110); Potassium 3.6 mmol/L (3.5-5.1); Sodium 125 mmol/L (136-145)
[2019-04-14] MEDS: Benzonatate 100 MG CAP PO PRN (17:57)
[2019-04-14] MEDS: Gabapentin 300 MG CAP PO SCH (20:13)
[2019-04-15 05:16] LABS: Anion Gap 11 mmol/L (10-20); BUN (Urea Nitrogen) 15 mg/dL (9.8-20.1); Calc. Creatinine Clearance 74 mL/min (70-130); Calcium 8.8 mg/dL (7.8-10.44); Carbon Dioxide 29 mmol/L (23-31); Chloride 92 mmol/L (98-107); Estimated GFR-MDRD Greater than 90; Glucose 147 mg/dL (83-110); Potassium 3.2 mmol/L (3.5-5.1); Sodium 129 mmol/L (136-145)
[2019-04-15 05:31] LABS: Mean Corpuscular HGB CONC 32.7 g/dL (32.0-36.0); Mean Corpuscular Hemoglobin 27.1 pg (27.0-31.0); Mean Corpuscular Volume 82.7 fL (78.0-98.0); Mean Platelet Volume 12.3 fL (7.4-10.4); Platelet Count 54 thou/uL (130-400); RBC Distribution Width 13.6 % (11.5-14.5); Red Blood Cell (RBC) Count 4.81 mill/uL (4.20-5.40); White Blood Cell (WBC) Count 9.6 thou/uL (4.8-10.8)
[2019-04-15 05:32] LABS: Band 1 % (5-11); Lymphocytes 5 % (21-51); MDiff Complete? YES; Monocytes 4 % (0-10); Neutrophil 90 % (42-75); Platelet Morphology Comment Appears Decreased; RBC Morphology Normal
--- NOTE | 2019-04-15 06:34 | PDOC.FM ---
- Subjective Subjective: Pt has no complaints this morning. No acute overnight events. Vitals stable. Denies CP. - Objective MAR Reviewed: Yes Vital Signs & Weight: Vital Signs (12 hours) Temp Pulse Resp BP BP Pulse Ox 04/15/19 03:45 97.9 F 80 16 109/53 L 97 04/15/19 00:09 90 18 98 04/14/19 19:35 97.9 F 80 16 121/56 L 98 04/14/19 19:29 18 Weight Weight 55.429 kg I&O: 04/13/19 04/14/19 04/15/19 06:59 06:59 06:59 Intake Total 840 850 600 Output Total 2100 1800 700 Balance -1260 -950 -100 Result Diagrams: 04/15/19 08:55 04/15/19 04:28 Phys Exam - Physical Examination Constitutional: NAD HEENT: moist MMs, sclera anicteric Neck: no nodes, supple, full ROM Respiratory: no wheezing, no rales, no rhonchi, clear to auscultation bilateral Cardiovascular: RRR, no significant murmur, no rub Gastrointestinal: soft, non-tender, no distention, positive bowel sounds Musculoskeletal: pulses present, edema present (trace BLE edema ) Neurological: non-focal, normal sensation, moves all 4 limbs Lymphatic: no nodes Psychiatric: normal affect, A&O x 3 Skin: no rash, normal turgor, cap refill <2 seconds Dx/Plan (1) Tachy-lyubov syndrome Code(s): I49.5 - SICK SINUS SYNDROME Status: Acute (2) Adenocarcinoma Code(s): C80.1 - MALIGNANT (PRIMARY) NEOPLASM, UNSPECIFIED Status: Chronic (3) COPD exacerbation Code(s): J44.1 - CHRONIC OBSTRUCTIVE PULMONARY DISEASE W (ACUTE) EXACERBATION Status: Acute (4) CHF exacerbation Code(s): I50.9 - HEART FAILURE, UNSPECIFIED Status: Acute (5) Hypochloremic alkalosis Code(s): E87.3 - ALKALOSIS Status: Acute (6) Non-small cell lung cancer Code(s): C34.90 - MALIGNANT NEOPLASM OF UNSP PART OF UNSP BRONCHUS OR LUNG Status: Acute (7) Atrial fibrillation, persistent Code(s): I48.1 - PERSISTENT ATRIAL FIBRILLATION * DO NOT USE * Status: Chronic (8) Hyponatremia Code(s): E87.1 - HYPO-OSMOLALITY AND HYPONATREMIA Status: Acute (9) S/P placement of cardiac pacemaker Code(s): Z95.0 - PRESENCE OF CARDIAC PACEMAKER Status: Acute - Plan Plan: 1. CHF, diastolic, Exacerbation- improving. s/p 40mg IV lasix in the ER. 2+ pitting edema to level of the abdomen, improved. BNP normal. - Patient seen by Dr. Wilson in the past; cardiology consult placed, appreciate recs - Echo done on 03/14 showing EF 50-55%, diastolic dysfxn not able to assess due to afib, mild-mod dilated LA, sclerotic aortic valve. - Holding diuretics and will use PRN. - Will monitor I/Os - Cardiac rehab, PT/OT, Rehab screen. Pt cannot go to Rehab and receive Chemotherapy. Will discuss SNF or other placement. 2. Afib w/ RVR (resolved) s/p diltiazem and digoxin in the ER. Rate controlled on exam in the ER. EKG showing atrial fib. - Continue home meds - Cardiology, Dr. Wilson, consulted 04/09, appreciate recs - Rec'd eval by EP. Dr. Vargas saw pt and rec'd pacemaker placement Saturday for tachy-lyubov syndrome - Will hold Xarelto in mean time, restart 04/16. - Vanc started 10 AM 04/13, once time dose for procedure. 3. COPD Exacerbation s/p levoquin, duoneb in the ER. Symptoms: increased cough, sputum production and color change. - CXR showing stable appearance from previous. No consolidation noted - on 3L of O2 at home, at baseline - Procal 0.03, neg - Flu swab pending - Duoneb GENEVIEVE q6hrs, PRN 3hrs - Continuous O2 monitoring - keep O2 sats between 88-92% - Given 2 doses IV steroids, continue PO - On levofloxacin for COPD exacerbation, transitioned to PO abx 04/09 - 04/14. - D/C'd levaquin and prednisone. 4. 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 Per patient, needs a mediport placed and will need to be off xarelto for 48hrs prior to this. - patient to f/u with oncology outpatient - Mediport placed, tolerated procedure well 04/13. 5. Thrombocytopenia -looking through previous charts from February, appears to be chronic -followed by oncology 6. Hypochloremic metabolic alkalosis #Respiratory Acidosis -patient has known COPD and lung CA -Diamox d/c'd. - Will discharge on Spiriva, continue Duonebs BID/PRN in hx. 7. Hypokalemia - K+ 3.0 , 04/13/19. 2.9 04/14, 3.2 on 04/15. - 20 mEq KCl, X2 doses 04/13. - Gave 40 meq K-dur X1 04/15 AM. 8. Hyponatremia - likely hypovolemic hyponatremia 2/2 diuresis. - Na+ 122 on 04/13, has gradually down trended from 133 upon admission. 127 on 04/14. 129 on 04/15. Improving - Will adjust diuretic medications, and continue fluid restriction. Code:DNR VTE ppx: (holding xarelto for procedure) Diet: Dispo: stable, pending placement to home, for outpt chemotherapy.
[2019-04-15] MEDS ORDERED: Potassium Chloride 20 MEQ TAB PO SCH (06:45)
--- NOTE | 2019-04-15 09:05 | PRG ---
DATE OF SERVICE: 04/15/2019 SUBJECTIVE: Ms. Tellez is doing better. She has less cough and less shortness of breath. She has lost almost 10 pounds since her admission. Her rate appears to be better controlled. Her heart rate is in the 80s to 90s. OBJECTIVE: VITAL SIGNS: Blood pressure 113/57, pulse 93, temperature 97.7. Total net I's and O's -1 L in the last 24 hours. Weight down from 132 to 122. LUNGS: Minimal crackles bilaterally. HEART: Irregularly irregular. ABDOMEN: Soft, nontender, nondistended. EXTREMITIES: No edema. PERTINENT LABORATORY DATA: Hemoglobin 13. Creatinine 0.56. IMPRESSION: 1. Atrial fibrillation. 2. Diastolic heart failure. 3. Metastatic lung cancer. RECOMMENDATIONS: 1. Reinstitute Eliquis at 2.5 mg one p.o. b.i.d. on tomorrow. 2. Add flecainide 50 mg p.o. b.i.d. as an outpatient. 3. Plan to cardiovert Ms. Tellez in the next 3 to 4 weeks after she has been anticoagulated appropriately. 4. Continue Lasix. 5. 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 6. Counseled the patient on taking weights on a daily basis. Job ID: [id number]
[2019-04-15 09:18] LABS: Hemoglobin 13.9 g/dL (12.0-16.0); Platelet Count 59 thou/uL (130-400)
[2019-04-15] MEDS: Polyethylene Glycol 3350 17 GM Packet PO SCH (09:51)
[2019-04-15] MEDS: Benzonatate 100 MG CAP PO PRN ×2 (09:56→21:33)
--- NOTE | 2019-04-15 11:37 | PRG ---
DATE OF SERVICE: 04/15/2019 Ms. Tellez is still awaiting placement. Medically, she is stable and we will await her final placement/disposition whereby she can get rehab and therapy for her lung cancer. Job ID: [id number]
[2019-04-15] MEDS ORDERED: Furosemide 40 MG/4 ML VIAL SLOW IVP SCH (15:30)
[2019-04-15] MEDS: Insulin Regular 300 UNITS/3 ML VIAL SC PRN ×2 (18:26→21:24)
[2019-04-15] MEDS: Gabapentin 300 MG CAP PO SCH (21:23)
[2019-04-16 04:01] LABS: #Eosinphils 0.1 thou/uL (0.0-0.7); #Lymphocytes 0.7 thou/uL (1.20-3.40); #Monocytes 0.9 thou/uL (0.11-0.59); %Basophils 0.1 % (0.0-1.0); %Eosinophils 0.8 % (0.0-10.0); %Monocytes 8.1 % (0.0-10.0); %Neutrophils 84.1 % (42.0-75.0); Hemoglobin 13.3 g/dL (12.0-16.0); Mean Corpuscular HGB CONC 32.8 g/dL (32.0-36.0); Mean Corpuscular Hemoglobin 27.3 pg (27.0-31.0); Mean Corpuscular Volume 83.1 fL (78.0-98.0); Platelet Count 48 thou/uL (130-400); RBC Distribution Width 13.9 % (11.5-14.5); Red Blood Cell (RBC) Count 4.89 mill/uL (4.20-5.40); White Blood Cell (WBC) Count 10.7 thou/uL (4.8-10.8)
[2019-04-16 04:18] LABS: Anion Gap 8 mmol/L (10-20); BUN (Urea Nitrogen) 18 mg/dL (9.8-20.1); Calc. Creatinine Clearance 79 mL/min (70-130); Calcium 8.9 mg/dL (7.8-10.44); Carbon Dioxide 34 mmol/L (23-31); Chloride 92 mmol/L (98-107); Estimated GFR-MDRD Greater than 90; Glucose 112 mg/dL (83-110); Potassium 3.2 mmol/L (3.5-5.1); Sodium 131 mmol/L (136-145)
--- NOTE | 2019-04-16 06:43 | PDOC.FM ---
- Subjective Subjective: Pt doing well. Denies CP, SOB. States she will be going to [facility] in [place] post discharge. - Objective MAR Reviewed: Yes Vital Signs & Weight: Vital Signs (12 hours) Temp Pulse Resp BP Pulse Ox 04/16/19 03:00 98.3 F 85 20 106/55 L 93 L 04/16/19 00:23 16 96 04/15/19 21:18 98.7 F 99 16 110/57 L 04/15/19 19:02 94 20 94 L Weight Weight 55.202 kg I&O: 04/14/19 04/15/19 04/16/19 06:59 06:59 06:59 Intake Total 516 471 3631 Output Total 4840 836 5194 Balance -060 -100 -955 Result Diagrams: 04/16/19 03:43 04/16/19 03:43 Phys Exam - Physical Examination Constitutional: NAD HEENT: moist MMs, sclera anicteric Neck: no nodes, no JVD, supple, full ROM Respiratory: no wheezing, no rales, no rhonchi, clear to auscultation bilateral Cardiovascular: RRR, no significant murmur, no rub Gastrointestinal: soft, non-tender, no distention, positive bowel sounds Musculoskeletal: pulses present, edema present (1+ pitting edema in BLE ) Neurological: non-focal, moves all 4 limbs Psychiatric: normal affect, A&O x 3 Skin: no rash, normal turgor, cap refill <2 seconds Dx/Plan (1) Tachy-lyubov syndrome Code(s): I49.5 - SICK SINUS SYNDROME Status: Acute (2) Adenocarcinoma Code(s): C80.1 - MALIGNANT (PRIMARY) NEOPLASM, UNSPECIFIED Status: Chronic (3) COPD exacerbation Code(s): J44.1 - CHRONIC OBSTRUCTIVE PULMONARY DISEASE W (ACUTE) EXACERBATION Status: Acute (4) CHF exacerbation Code(s): I50.9 - HEART FAILURE, UNSPECIFIED Status: Acute (5) Hypochloremic alkalosis Code(s): E87.3 - ALKALOSIS Status: Acute (6) Non-small cell lung cancer Code(s): C34.90 - MALIGNANT NEOPLASM OF UNSP PART OF UNSP BRONCHUS OR LUNG Status: Acute (7) Atrial fibrillation, persistent Code(s): I48.1 - PERSISTENT ATRIAL FIBRILLATION * DO NOT USE * Status: Chronic (8) Hyponatremia Code(s): E87.1 - HYPO-OSMOLALITY AND HYPONATREMIA Status: Acute (9) S/P placement of cardiac pacemaker Code(s): Z95.0 - PRESENCE OF CARDIAC PACEMAKER Status: Acute - Plan Plan: 1. CHF, diastolic, Exacerbation- improving. s/p 40mg IV lasix in the ER. 2+ pitting edema to level of the abdomen, improved. BNP normal. - Patient seen by Dr. Wilson in the past; cardiology consult placed, appreciate recs - Echo done on 03/14 showing EF 50-55%, diastolic dysfxn not able to assess due to afib, mild-mod dilated LA, sclerotic aortic valve. - Started P olasix 40 mg daily. 04/16 - Will monitor I/Os and daily weights - Cardiac rehab, PT/OT, Rehab screen. Pt cannot go to Rehab and receive Chemotherapy. Pt discharge to [facility]. 2. Afib w/ RVR (resolved) s/p diltiazem and digoxin in the ER. Rate controlled on exam in the ER. EKG showing atrial fib. - Continue home meds - Cardiology, Dr. Wilson, consulted 04/09, appreciate recs - Rec'd eval by EP. Dr. Vargas saw pt and rec'd pacemaker placement Saturday for tachy-lyubov syndrome - held Xarelto for procedure, restarted eliquis 2.5 BID 04/16. - Vanc started 10 AM 04/13, once time dose for procedure. - Eliquis started 2.5 BID 04/16. 3. COPD Exacerbation s/p levoquin, duoneb in the ER. Symptoms: increased cough, sputum production and color change. - CXR showing stable appearance from previous. No consolidation noted - on 3L of O2 at home, at baseline - Procal 0.03, neg - Flu swab pending - Duoneb GENEVIEVE q6hrs, PRN 3hrs - Continuous O2 monitoring - keep O2 sats between 88-92% - Given 2 doses IV steroids, continue PO - On levofloxacin for COPD exacerbation, transitioned to PO abx 04/09 - 04/14. - D/C'd levaquin and prednisone. 4. 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 Per patient, needs a mediport placed and will need to be off xarelto for 48hrs prior to this. - patient to f/u with oncology outpatient, will start Chemotherapy. - Mediport placed, tolerated procedure well 04/13. 5. Thrombocytopenia -looking through previous charts from February, appears to be chronic -followed by oncology 6. Hypochloremic metabolic alkalosis #Respiratory Acidosis -patient has known COPD and lung CA -Diamox d/c'd. - Will discharge on Spiriva, continue Duonebs BID/PRN in hx. 7. Hypokalemia - K+ 3.0 , 04/13/19. 2.9 04/14, 3.2 on 04/15. 3.2 on 04/16. - 20 mEq KCl, X2 doses 04/13. - Gave 40 meq K-dur X1 04/16 AM. 8. Hyponatremia - likely hypovolemic hyponatremia 2/2 diuresis. - Na+ 122 on 04/13, has gradually down trended from 133 upon admission. 127 on 04/14. 129 on 04/15. 131 on 04/16. Improving - Will adjust diuretic medications, and continue fluid restriction. 9. Oral Candidiasis - Prescribed nystatin SSW. Code:DNR VTE ppx: eliquis Diet: HH Dispo: stable, pending placement to home or [facility], for outpt chemotherapy.
[2019-04-16] MEDS ORDERED: Potassium Chloride 20 MEQ TAB PO SCH (06:45)
[2019-04-16 07:52] VITALS: TEMP 98.1
[2019-04-16] MEDS ORDERED: Furosemide 80 MG TAB PO SCH (09:00)
[2019-04-16] MEDS ORDERED: Apixaban 2.5 MG TAB PO SCH ×2 (09:00→21:00)
[2019-04-16] MEDS: Nystatin 500,000 UNITS/5 ML UDCUP SSW SCH ×2 (09:11→12:32)
[2019-04-16] MEDS: Polyethylene Glycol 3350 17 GM Packet PO SCH (09:13)
[2019-04-16] MEDS ORDERED: Furosemide 40 MG TAB PO SCH (09:30)
--- NOTE | 2019-04-16 09:32 | PRG ---
DATE OF SERVICE: 04/16/2019 SUBJECTIVE: Ms. Tellez today appears weak. She states she was awoken all night for vitals and neb treatments, etc. She had no rest overnight. OBJECTIVE: GENERAL: Patient is a pleasant female, who is in no acute distress. The patient appears their stated age. VITAL SIGNS: Heart rate is in the 80s to 90s, blood pressure is 105/67, pulse is 90, respirations are 20. Weight 131 down to 121 with total net output of -575. NEUROLOGIC: The patient is alert and oriented x3 with no focal neurologic deficits. HEENT: Sclerae without icterus. Mouth has moist mucous membranes with normal pallor. NECK: No JVD. Carotid upstroke brisk. No bruits bilaterally. LUNGS: Minimal crackles noted bilaterally. BACK: No scoliosis or kyphosis. CARDIAC: Irregularly irregular. ABDOMEN: Soft, nontender, nondistended. No peritoneal signs present. No hepatosplenomegaly. No abnormal striae. EXTREMITIES: 2+ femoral and 2+ dorsalis pedis pulses. No cyanosis, clubbing, or edema. SKIN: No gross abnormalities. PERTINENT LABORATORY DATA: Platelet count 48,000, hemoglobin 13.3. Creatinine 0.5. IMPRESSION: 1. Atrial fibrillation. 2. Chronic systolic heart failure. 3. Metastatic lung cancer. 4. Profound weakness. RECOMMENDATIONS: 1. Ms. Tellez unfortunately continues to not do well. She continues to be weak and fatigued. 2. We will add anticoagulation therapy at this point. We will need to monitor platelet count closely. It is below 50,000, but at this point, the benefits outweigh the risks. We would like to put her back in normal rhythm. 3. Continue p.o. Lasix as prescribed. Continue rate control with diltiazem. Job ID: [id number]
[2019-04-16 10:47] LABS: Hemoglobin 15.5 g/dL (12.0-16.0); Platelet Count 23 thou/uL (130-400)
[2019-04-16 10:56] LABS: Calc. Creatinine Clearance 67 mL/min (70-130); Estimated GFR-MDRD Greater than 90
[2019-04-16 12:18] VITALS: BP 120/59
--- NOTE | 2019-04-16 12:25 | PRG ---
DATE OF SERVICE: 04/16/2019 We are still awaiting placement for Ms. Tellez. The issue is having her stay in a facility that will also allow her to go for chemotherapy. Unfortunately, her platelet count is low and has been low for quite some time. It has, however, dropped recently to 23,000. Should she bleed or should it drop below 10,000, she will be platelet transfusion. Job ID: [id number]
[2019-04-16] MEDS: Insulin Regular 300 UNITS/3 ML VIAL SC PRN (12:31)
[2019-04-16 14:36] VITALS: BMI 22.2
--- NOTE | 2019-04-17 02:49 | PQF ---
YASH GOFF RICARDO MD [id number] [id number] [id number] CLINICAL DOCUMENTATION CLARIFICATION FORM: POST DISCHARGE Addendum to original discharge summary date: ____ Late entry note date: __ DATE: 04/17/19 ATTN: Rashad Lemons Please exercise your independent, professional judgment in responding to the clarification form. Clinical indicators are provided on the bottom of this form for your review Can you please further clarify the type and acuity of CHF? Please check appropriate box(s): HEART FAILURE: A. TYPE: [ ] Systolic / HFrEF [ ] Diastolic / HFpEF [ ] Combined Systolic / Diastolic B. ACUITY [ ] Acute [ ] Acute on Chronic [ ] Chronic [ ] Other diagnosis please specify [ ] Unable to determine In addition, please specify: Present on Admission (POA): [ ] Yes [ ] No [ ] Unable to determine For continuity of documentation, please document condition throughout progress notes and discharge summary. Thank You. CLINICAL INDICATORS - SIGNS / SYMPTOMS / LABS PN 04/16 "Chronic systolic CHF" PN 04/15 "Diastolic CHF" PN 04/14 "Acute on chronic diastolic heart failure" HP 04/08 "Admit inpatient for Afib, HFpEF exacerbation and COPD" Chest Xray 04/08 "significant stable pleural fluid" ED Notes 04/08 "presents with fluid overload" ED Notes 04/08 "LE:edema present" HP 04/08 "CC: swollen legs, SOB and fatigue" HP 04/08 "CHF exacerbation" HP 04/08 "BNP normal" HP 04/08 "EF 50-55%" HP 04/08 "past medical history of HFpEF" RISKS: ED Notes 04/08-78 years old male ED Notes 04/08-Afib Anesthesia 04/13-HTN Anesthesia 04/13-Former Smoker TREATMENTS: Collected 04/08-Chest Xray Collected 04/08-Echocardiogram HP 04/08-Oxygen HP 04/08-Monitor I&O OP Note 04/13-Pacemaker insertion MAR 04/08-Lasix 40mg IV (This form is maintained as a part of the permanent medical record) 2014 [employer] All Rights Reserved [email or web address] [not provided] [email or web address]
[2019-04-17] MEDS ORDERED: Furosemide 40 MG TAB PO SCH ×2 (07:30→08:55)
--- NOTE | 2019-04-17 12:45 | DIS ---
DATE OF ADMISSION: 04/08/2019 DATE OF DISCHARGE: 04/16/2019 RESIDENT: Sheba Elam DO ADMITTING ATTENDING: Teto Ureña MD DISCHARGE ATTENDING: Jaxson Medina MD. CONSULTS: 1. Case Management. 2. Cardiology, Dr. Wilson. 3. General Surgery, Dr. Marr. 4. Cardiac rehab. 5. Dietitian. 6. Heart failure disease management. 7. PT, OT, and Rehab screen. 8. The patient's oncologist, Dr. Michelle helped and managed throughout the stay. PROCEDURES: Pacemaker placement on 03/2018. Mediport placement on 03/2018. Pacemaker placed by Dr. Vargas. Mediport placed by Dr. Marr. DIAGNOSES: 1. Congestive heart failure, diastolic, exacerbation improved. 2. Atrial fibrillation with rapid ventricular response, resolved. 3. Chronic obstructive pulmonary disease exacerbation. 4. Adenocarcinoma of the right lung, stage IV. 5. Thrombocytopenia. 6. Hyperchloremic metabolic alkalosis with respiratory acidosis, most likely from chronic obstructive pulmonary disease. 7. Hypokalemia. 8. Hyponatremia. 9. Oral candidiasis. DISCHARGE MEDICATIONS: 1. Acetaminophen 650 mg p.o. q.4 hours. 2. Eliquis 2.5 mg p.o. b.i.d. if platelets greater than 50,000. 3. Tessalon Perles 100 mg p.o. t.i.d. p.r.n. 4. Diltiazem 360 mg p.o. daily. 5. Lasix 40 mg p.o. daily. 6. Gabapentin 300 mg p.o. q.p.m. 7. Mild sliding scale insulin with bedtime sliding insulin. 8. DuoNebs q.6 hours. 9. Nystatin swish and swallow q.i.d. 10. Zofran q.6 hours p.r.n. 4 mg. 11. Protonix 40 mg p.o. q.p.m. 12. Polyethylene glycol 17 g p.o. daily. 13. Tramadol 50 mg p.o. q.4 hours p.r.n. HISTORY OF PRESENT ILLNESS/HOSPITAL COURSE: Ms. Tellez is an 78-year-old female with a past medical history of CHF, COPD, atrial fibrillation, and adenocarcinoma stage IV of the right lung. She was admitted for swollen legs and shortness of breath, found to be in CHF exacerbation as well as COPD exacerbation in the setting of her cancer with a new diagnosis of adenocarcinoma. The patient wishes to receive chemotherapy. The patient had a Mediport placement on 03/[address] Marr. The patient had pacemaker placement for tachy-lyubov syndrome on 03/[address] Vargas. The patient's platelets have gradually trended down and are 28 today. Recommending that Eliquis be started by Dr. Wilson with 2.5 mg b.i.d. He is saying that the benefits outweigh the risk of starting Eliquis; the patient will need to be on Eliquis b.i.d. regardless a platelet count. Just stated in his note on 04/16/2019, Dr. Wilson is okay with the patient's discharge to inpatient rehab today recommending p.o. Lasix therapy as well as Eliquis, so that she can follow up outpatient in 3 weeks for cardioversion after being adequately anticoagulated. At that time, they will also recommend to start flecainide 50 mg b.i.d. for control. The patient's potassium has been low throughout the hospital course as well as her sodium. They have improved in the last few days and are reaching more normal levels. This might be secondary to diuresis. She was on several different ones throughout hospital course. This improved with discontinuation of those and using just Lasix. The patient is very weak upon discharge. She has been through a lot during this hospital stay and is going to inpatient rehab to build up her strength so that she can be able to go home and start chemotherapy as desired for her stage IV adenocarcinoma of the right lung. She will greatly benefit from inpatient rehab as she was very weak at the moment. DISPOSITION: The patient is stable, but weak upon discharge to inpatient rehab. DISCHARGE INSTRUCTIONS: 1. Location: To [facility]. 2. Diet: Heart healthy diet. Fluid restriction less than 1500 mL fluid daily. 3. Activity: As tolerated with PT and OT at inpatient rehab. 4. Follow up with Dr. Vargas in 2 weeks for cardioversion. 5. Followup with Dr. Michelle for chemotherapy once out of inpatient rehab. 6. Follow up with primary care provider, Dr. Hickman in 1 week after discharge from inpatient rehab. Job ID: [id number]
--- NOTE | 2019-04-19 12:34 | EKG ---
Test Reason : POST PACEMAKER Blood Pressure : / mmHG Vent. Rate : 089 BPM Atrial Rate : 227 BPM P-R Int : 000 ms QRS Dur : 096 ms QT Int : 330 ms P-R-T Axes : 000 003 059 degrees QTc Int : 401 ms Atrial fibrillation with a competing junctional pacemaker with premature ventricular or aberrantly co nducted complexes Nonspecific ST abnormality , probably digitalis effect Abnormal ECG When compared with ECG of 08-APR-2019 17:16, Criteria for Anterior infarct are no longer Present ST now depressed in Anterior leads T wave inversion no longer evident in Lateral leads Confirmed by JESSICA ALMONTE (2) on 04/19/2019 12:34:37 PM Referred By: CHA ROY Confirmed By:JESSICA ALMONTE
== END 2019-04-16 16:00 | DRG 242 ==
LOC: ERS 13:58 → 2NO 19:10
PROVIDERS: ADMIT Family Medicine; ATTEND Family Medicine
PROC: 0JH606Z Insertion of Pacemaker, Dual Chamber into Chest Subcutaneous Tissue and Fascia, Open Approach (ICD-10-PCS; principal; 2019-04-13)
PROC: 02H63JZ Insertion of Pacemaker Lead into Right Atrium, Percutaneous Approach (ICD-10-PCS; 2019-04-13)
PROC: 0JH60WZ Insertion of Totally Implantable Vascular Access Device into Chest Subcutaneous Tissue and Fascia, Open Approach (ICD-10-PCS; 2019-04-13)
PROC: 02HK3JZ Insertion of Pacemaker Lead into Right Ventricle, Percutaneous Approach (ICD-10-PCS; 2019-04-13)
PROC: 02HV33Z Insertion of Infusion Device into Superior Vena Cava, Percutaneous Approach (ICD-10-PCS; 2019-04-13)
PROC: B5181ZA Fluoroscopy of Superior Vena Cava using Low Osmolar Contrast, Guidance (ICD-10-PCS; 2019-04-13)
DX: I48.19 Other persistent atrial fibrillation (principal); I50.33 Acute on chronic diastolic (congestive) heart failure; C34.91 Malignant neoplasm of unspecified part of right bronchus or lung; J44.1 Chronic obstructive pulmonary disease with (acute) exacerbation; E87.3 Alkalosis; E87.1 Hypo-osmolality and hyponatremia; B37.0 Candidal stomatitis; I48.0 Paroxysmal atrial fibrillation; D69.6 Thrombocytopenia, unspecified; Z66 Do not resuscitate; I49.5 Sick sinus syndrome; E87.6 Hypokalemia; T50.2X5A Adverse effect of carbonic-anhydrase inhibitors, benzothiadiazides and other diuretics, initial encounter; I11.0 Hypertensive heart disease with heart failure; D64.9 Anemia, unspecified; M19.90 Unspecified osteoarthritis, unspecified site; Z99.81 Dependence on supplemental oxygen; Z79.51 Long term (current) use of inhaled steroids; Z79.01 Long term (current) use of anticoagulants; Z79.899 Other long term (current) drug therapy; Z98.49 Cataract extraction status, unspecified eye; Z98.51 Tubal ligation status; Z90.49 Acquired absence of other specified parts of digestive tract; Z87.891 Personal history of nicotine dependence
CPT/HCPCS: 33208; 36005; 36415; 36416; 71045; 75820; 80048; 80053; 81003; 82550; 82553; 82805; 83036; 83605; 83690; 83735; 83880; 83930; 83935; 84100; 84145; 84300; 84443; 84484; 84540; 85014; 85018; 85025; 85049; 86140; 87040; 87804; 93005; 93010; 93798; 94640; 94760; 96365; 96367; 96375; C1785; C1788; C1898; J0690; J1120; J1160; J1580; J1642; J1650; J1815; J1940; J1956; J2001; J2920; J3010; J3475; J3480; J3490; J7050; J7512; J7620

== ENCOUNTER 2019-04-28 10:18 | Inpatient (IN) | payer MEDICARE, BC ==
--- NOTE | 2019-04-28 10:56 | RAD ---
EXAM: Single view of the chest HISTORY: Stage IV lung cancer with increasing shortness of breath COMPARISON: 04/26/2019 FINDINGS: Single view of the chest shows a normal sized cardiomediastinal silhouette. The pacemaker and Mediport are unchanged in position. There is a moderate right pleural effusion with adjacent atelectasis. The bones are unremarkable. IMPRESSION: Stable moderate right pleural effusion.
[2019-04-28] MEDS ORDERED: Albuterol Sulfate 2.5 mg/3 ml Neb ONE (11:13)
[2019-04-28 11:32] LABS: #Eosinphils 0.1 thou/uL (0.0-0.7); #Lymphocytes 0.5 thou/uL (1.20-3.40); #Monocytes 0.3 thou/uL (0.11-0.59); #Neutrophils 4.7 thou/uL (1.40-6.50); %Basophils 0.1 % (0.0-1.0); %Eosinophils 1.6 % (0.0-10.0); %Lymphocytes 9.5 % (21.0-51.0); %Monocytes 5.8 % (0.0-10.0); Large Platelets SLIGHT; MDiff Complete? YES; Mean Corpuscular HGB CONC 31.5 g/dL (32.0-36.0); Mean Corpuscular Hemoglobin 26.4 pg (27.0-31.0); Mean Corpuscular Volume 83.9 fL (78.0-98.0); Mean Platelet Volume 12.4 fL (7.4-10.4); Platelet Count 73 thou/uL (130-400); Platelet Morphology Comment Appears Decreased; Polychromasia SLIGHT = 2-3 cells (100X) (0-2/hpf); RBC Distribution Width 13.5 % (11.5-14.5); Red Blood Cell (RBC) Count 4.54 mill/uL (4.20-5.40); White Blood Cell (WBC) Count 5.7 thou/uL (4.8-10.8)
[2019-04-28 11:37] LABS: ALT (SGPT) 23 U/L (8-55); AST (SGOT) 14 U/L (5-34); Albumin 2.8 g/dL (3.4-4.8); Alkaline Phosphatase 116 U/L (40-110); BUN (Urea Nitrogen) 12 mg/dL (9.8-20.1); Bilirubin, Total 0.2 mg/dL (0.2-1.2); Calc. Creatinine Clearance 0 mL/min (70-130); Calcium 9.1 mg/dL (7.8-10.44); Estimated GFR-MDRD Greater than 90; Globulin 2.8 g/dL (2.4-3.5); Glucose 253 mg/dL (83-110); Protein, Total 5.6 g/dL (6.0-8.3)
--- NOTE | 2019-04-28 12:27 | PDOC.FPRHP ---
- History of Present Illness Chief Complaint: SOB History of Present Illness: This is an 78yo F w/ PMH of atrial fibrillation, HFpEF, COPD, and adenocarcinoma of the lung who presented to the ER from [facility] rehab for worsening SOB. She was discharged from [facility] on 04/16 after she was hospitalized for COPD/CHF exacerbation. She was also recently diagnosed with adenocarcinoma of the lung in February. She has had a pacemaker and a mediport placed last hospitalization. She states that her breathing has worsened over the last 2 days, she feels very short of breath and like she can't take a deep breath. She endorses cough, dry mouth, and sore throat. She has been on O2 for about a month. She states she has been doing well with PT up until the day before yesterday. She states that physically her body is feeling better, but that her breathing is worsening. ED Course: Stephieb - Allergies/Adverse Reactions Allergies Allergy/AdvReac Type Severity Reaction Status Date / Time No Known Allergies Allergy Verified 04/09/19 01:56 - Home Medications Medication Instructions Recorded Confirmed Type Cholecalciferol (Vitamin D3) 1 tab PO DAILY 04/09/19 04/28/19 History [Vitamin D3] Levothyroxine Sodium 1 tablet PO DAILY 04/09/19 04/28/19 History Acetaminophen [Tylenol Regular 650 mg PO Q4H PRN tab 04/16/19 04/28/19 Rx Strength] Apixaban [Eliquis] 2.5 mg PO BID tab 04/16/19 04/28/19 Rx Benzonatate [Tessalon] 100 mg PO TIDPRN PRN cap 04/16/19 04/28/19 Rx Furosemide [Lasix] 40 mg PO DAILY-AC tab 04/16/19 04/28/19 Rx Gabapentin [Neurontin] 300 mg PO QPM cap 04/16/19 04/28/19 Rx Ipratropium/Albuterol Sulfate 3 ml NEB [id number] PRN neb 04/16/19 04/28/19 Rx [DuoNeb] Ipratropium/Albuterol Sulfate 3 ml NEB [id number] neb 04/16/19 04/28/19 Rx [DuoNeb] Ondansetron [Zofran ODT] 4 mg PO Q6H PRN tab 04/16/19 04/28/19 Rx Polyethylene Glycol 3350 [Miralax] 17 gm PO DAILY pk 04/16/19 04/28/19 Rx traMADol HCl [Ultram] 50 mg PO Q4H PRN tab 04/16/19 04/28/19 Rx Digoxin [Lanoxin] 0.125 mg PO DAILY 04/28/19 04/28/19 History Diltiazem HCl [Cardizem CD] 60 mg PO QID 04/28/19 04/28/19 History Famotidine [Pepcid] 20 mg PO BID 04/28/19 04/28/19 History Ketotifen Fumarate [Zaditor] 1 drop EA EYE BID 04/28/19 04/28/19 History Melatonin 6 mg PO HS PRN 04/28/19 04/28/19 History Metoprolol Succinate [Toprol XL] 25 mg PO BID 04/28/19 04/28/19 History - History PMHx: a-fib, stage 4 adenocarcinoma of the lung, COPD, CHF, DMII PSHx: cholecystectomy, tubal ligation, pacemaker, mediport placed 03/2019 FHx: non-contributory Social: smoked for 40 years (quit 2000), occasional alcohol, denies drug use - Review of Systems General: denies: fever/chills, weight/appetite/sleep changes, night sweats, fatigue Eyes: denies: eye pain, vision changes ENT: denies: nasal congestion, rhinorrhea Respiratory: reports: cough, shortness of breath, exercise intolerance. denies : congestion Cardiovascular: reports: edema, paroxysmal nocturnal dyspnea, orthopnea. denies : chest pain, palpitation Gastrointestinal: reports: constipation. denies: nausea, vomiting, diarrhea, abdominal pain, GI bleeding Genitourinary: denies: dysuria Skin: denies: rashes, lesions Musculoskeletal: reports: swelling. denies: pain, tenderness, stiffness, arthritis/arthralgias Neurological: reports: weakness. denies: numbness, syncope - Vital signs BP: 116/65, Pulse: 119, Resp: 20, Temp: 98.3 (Oral), Pain: 1, O2 sat: 98 on (3L Oxygen), Time: 04/28/2019 10:27. Weight 60kg - Physical Exam Constitutional: NAD, awake, alert and oriented, well developed HEENT: normocephalic and atraumatic, PERRLA, EOMI, no scleral icterus -HEENT: dry MM Neck: supple, FROM Chest: no-tender to palpation, no lesions Heart: normal S1/S2, no murmurs/rubs/gallops -Heart: Tachycardic, 2+ pitting edema to level of thighs b/l -Lungs: exp wheezes heard diffusely, breath sounds diminished in the right lung base. Tachypneic. Abdomen: soft, non-tender, bowel sounds present, no masses/distention Musculoskeletal: normal structure, normal tone, ROM grossly normal Neurological: no focal deficit Skin: no rash/lesions, capillary refill <2 seconds -Skin: decreased skin turgor, senile purpura Heme/Lymphatic: no unusual bruising or bleeding, no purpura Psychiatric: normal mood and affect, intact recent and remote memory FMR H&P: Results - Labs Result Diagrams: 04/28/19 10:52 04/28/19 10:52 Lab results: WBC 5.7 thou/uL (4.8-10.8) 04/28/19 10:52 Hgb 12.0 g/dL (12.0-16.0) 04/28/19 10:52 Hct 38.1 % (36.0-47.0) 04/28/19 10:52 MCV 83.9 fL (78.0-98.0) 04/28/19 10:52 Plt Count 73 thou/uL (130-400) L 04/28/19 10:52 Neutrophils % 83.0 % (42.0-75.0) H 04/28/19 10:52 BUN 12 mg/dL (9.8-20.1) 04/28/19 10:52 Creatinine 0.61 mg/dL (0.6-1.1) 04/28/19 10:52 Glucose 253 mg/dL (83-110) H 04/28/19 10:52 Calcium 9.1 mg/dL (7.8-10.44) 04/28/19 10:52 Total Bilirubin 0.2 mg/dL (0.2-1.2) 04/28/19 10:52 AST 14 U/L (5-34) 04/28/19 10:52 ALT 23 U/L (8-55) 04/28/19 10:52 Alkaline Phosphatase 116 U/L (40-110) H 04/28/19 10:52 B-Natriuretic Peptide 135.6 pg/mL (0-100) H 04/28/19 10:52 Serum Total Protein 5.6 g/dL (6.0-8.3) L 04/28/19 10:52 Albumin 2.8 g/dL (3.4-4.8) L 04/28/19 10:52 - EKG Interpretation EKG: Atrial fibrillation with RVR, rate 120s - Radiology Interpretation Chest x-ray Status: report reviewed by me (stable moderate right plueral effusion) FMR H&P: A/P - Problem List (1) CHF exacerbation Current Visit: No Status: Acute Code(s): I50.9 - HEART FAILURE, UNSPECIFIED (2) COPD exacerbation Current Visit: No Status: Acute Code(s): J44.1 - CHRONIC OBSTRUCTIVE PULMONARY DISEASE W (ACUTE) EXACERBATION (3) Hyponatremia Current Visit: No Status: Acute Code(s): E87.1 - HYPO-OSMOLALITY AND HYPONATREMIA (4) Non-small cell lung cancer Current Visit: No Status: Acute Code(s): C34.90 - MALIGNANT NEOPLASM OF UNSP PART OF UNSP BRONCHUS OR LUNG (5) S/P placement of cardiac pacemaker Current Visit: No Status: Acute Code(s): Z95.0 - PRESENCE OF CARDIAC PACEMAKER (6) Tachy-lyubov syndrome Current Visit: No Status: Acute Code(s): I49.5 - SICK SINUS SYNDROME (7) Adenocarcinoma Current Visit: No Status: Chronic Code(s): C80.1 - MALIGNANT (PRIMARY) NEOPLASM, UNSPECIFIED (8) Atrial fibrillation, persistent Current Visit: No Status: Chronic Code(s): I48.1 - PERSISTENT ATRIAL FIBRILLATION * DO NOT USE * - Plan CHF Exacerbation - BNP 135.6, increased LE edema. - Moderate right sided pleural effusion (CHF vs Cancer) - ECHO 02/2019 EF 50-55% - On Lasix 40po q day at baseline - Will schedule Lasix 40mg IV BID and monitor fluid status. - strict I/Os COPD - 40 pack year smoking history - Will schedule DuoNebs q 3 hour - Will give short course of steroids - Bicarb of 41 on CMP, ordered ABG - Continuous O2 for sats 88-92% Adenocarcinoma of the lung - Per the patient and her , it is Stage IV. - Patient has appt with oncology outpatient next week. - Has seen Dr. Lujan in the past for diagnosis of cancer and for thoracentesis - Will consult Dr. Lujan for potential therapeutic thoracentesis, or other palliative options Atrial fibrillation with RVR - Has appointment with Dr. Wilson next week for ablation, will consult cardiology - On PO Diltiazem and Digoxin - Will monitor HR and see if she improves with diuresis. If she does not improve , will consider bolus diltiazem for rate control. - on anticoagulation with eliquis 2.5 bid. DM II - A1c recently done in hospital 7.6 - Blood glucose of 258 on arrival. - Will start Insulin and SS Hypothyroidism - resume home med (Levothyroxine 50mcg) GERD - resume famotidine Disposition/LOS: Dispo: Guarded, LOS > 48 hours. Code: DNAR VTE: [place], SCDs FMR H&P: Upper Level - Pertinent history This is an 78yo F presenting today from [facility] rehab due to SOB. Patient reports that she has been having a dry cough for about a week. She denies any phlegm. Denies fever or chills. She has been increasingly SOB over the last 1-2 days. She uses NC daily. She also endorses LE swelling that has also worsened over the last few days. She has been getting lasix once daily at rehab. Of note patient was discharged from the hospital 04/16 for COPD/CHF exacerbation. She was also diagnosed with adenocarcinoma of the right lung about a month ago. She has had a right pleural effusion that is recurring. She had thoracentesis performed by Dr. Lujan last month. She has an appointment with onc in [place] next Saturday. FULL HPI and PMH on cad intern note - Pertinent findings PE: General: mild distress due to breathing, frail elderly F HEENT: NC/AT, no thyromegaly Cardio: irregularly irregular, no murmurs, rubs or gallops Resp: increased work of breathing, dec breath sounds at right lung base, exp wheezes MSK: 2+ pitting edema to level of thighs b/l, FROM of all lumbs Psych: AXOX3, good insight - Plan Date/Time: 04/28/19 1227 I, Jenae Loo MD, have evaluated this patient and agree with findings/plan as outlined by cad intern resident. Pertinent changes/additions are listed here. CHF exacerbation Patient with hx of CHF, BNP mildly elevated. Echo in 02/2019 showing preserved EF. s/p pacemaker placement - Will give IV lasix for diuresis - CXR showing mod pleural effusion. Will consult Pulm to see if thoracentesis is needed. - strict I/Os COPD Stable - Duoneb GENEVIEVE - ABG pending - Will give steroids due to wheezing heard on exam. - Keep O2 sats between 88-92%, maintain on NC - Procal pending to help decide abx therapy Adenocarcinoma of the Right Lung, stage 4 Patient to see oncology next Saturday for tx options - aware, no need to consult onc at this time DMII Glucose 258 on arrival - A1c in 03/2019 7.6. Will put on insulin and SS Afib with RVR HR in 120s in the ER - On home dilt, dig. Will consult cardiology if not able to control. Can consider bolus of dilt if HR does not come down after diuresis. s/p pacemaker - due to get cardioversion with Dr. Vargas next week. Code: DNR Diet: HH, CC Ppx: eliquis Dispo: admit to tele obs. Case discussed with Dr. Saldaña Addendum - Attending - Attending Attestation Date/Time: 04/28/192032 I personally evaluated the patient and discussed the management with the team. I agree with the History, Examination, Assessment and Plan documented above with any addition or exceptions noted below. Diuresis, nebs. Consult pulm for thoracentesis.
[2019-04-28 12:36] LABS: Chloride 85 mmol/L (98-107); Potassium 3.5 mmol/L (3.5-5.1); Sodium 130 mmol/L (136-145)
[2019-04-28 12:39] LABS: Anion Gap 8 mmol/L (10-20)
[2019-04-28 12:45] LABS: Carbon Dioxide 41 mmol/L (23-31)
[2019-04-28] MEDS ORDERED: Ondansetron PF 4 MG/2 ML Vial IVP PRN (13:04)
[2019-04-28 13:32] LABS: Actual Bicarbonate (HCO3a) 33.3 mEq/L (22-28); Analyzer IN Cardio ER; Base Excess (BEa) 7.9 mEq/L (-2.0 to +3.0); CO2 Tension 49.7 mmHg (35.0-45.0); Calcium, Ionized 1.19 mmol/L (1.12-1.30); Carboxyhemoglobin (COHb) 0.4 gm% (0.0-3.0); Hemoglobin (Hb) 12.9 g/dL (12.0-16.0); O2 Tension (PaO2) 64.2 mmHg (> 60.0); Potassium - ABG Lab 3.47 mmol/L (3.70-5.30); pH, Arterial 7.44 (7.35-7.45)
[2019-04-28] MEDS ORDERED: Furosemide 40 MG/4 ML VIAL SLOW IVP SCH (14:00)
[2019-04-28] MEDS ORDERED: Dextrose 5% in Water 1,000 ML IV PRN (14:15)
[2019-04-28] MEDS ORDERED: Dextrose 50% Abboject 50 ML SYRINGE SLOW IVP PRN (14:15)
[2019-04-28 14:40] LABS: Puncture Site LRA
[2019-04-28 14:41] LABS: ALV-art Gradient 101.835 (0-20)
[2019-04-28 15:28] VITALS: BMI 25.9
[2019-04-28] MEDS: methylPREDNISolone Sod Succ/PF 125 MG/2 ML VIAL IVP SCH ×2 (16:05→20:53)
[2019-04-28] MEDS: Acetaminophen 325 MG TAB PO PRN (17:06)
--- NOTE | 2019-04-28 17:51 | PDOC.OP ---
Operative Note - Operative Note Operative Note: INDICATION: Pleural effusion, shortness of breath RESIDENT PHYSICIAN: Mariah Cortez MD PGY-2 ATTENDING PHYSICIAN: Terrell Lujan MD CONSENT: Consent was obtained from patient prior to the procedure. Indications, risks, and benefits were explained at length. PROCEDURE SUMMARY: Appropriate side was confirmed and marked. The patient was prepped and draped in a sterile manner using chlorhexidine scrub after the appropriate level was percussed. 1% lidocaine was used to anesthesize the skin, subcutaneous tissue, superior aspect of the rib periosteum and parietal pleura. A finder needle was then introduced over the superior aspect of the rib to locate the pleural fluid; Serosanginous colored fluid was aspirated at a depth of approximately 4cm. A 10-blade scalpel was used to diogenes the skin at the insertion site. The [id number] needle was then introduced through the skin incision into the pleural space using negative aspiration pressure. The thoracentesis catheter was then threaded without difficulty. 1250ml of serosanginous colored fluid was removed without difficulty. The catheter was then removed. No immediate complications were noted during the procedure. A post -procedure chest x-ray is pending at the time of this note. The fluid will be sent for studies. Estimated blood loss is 0ml.
[2019-04-28 18:05] LABS: RBC Count-Automated (BF) 5344 /cumm; WBC/Nucleated-Auto (BF) 457 uL
--- NOTE | 2019-04-28 18:13 | RAD ---
PORTABLE CHEST ONE VIEW: 04/28/19 at 4:58 p.m. HISTORY: Thoracentesis, pleural effusion, stage IV lung cancer. FINDINGS/IMPRESSION: Interval reduction in the size of the right pleural effusion is seen since earlier exam of 10:49 a.m. No pneumothorax is noted. Remainder of the exam is otherwise stable. POS: SAMANTHA
[2019-04-28 18:14] LABS: Fluid, Triglycerides 24 mg/dL (Not Available); Pleural Fluid, Amylase Less than 30 U/L (Not Available); Pleural Fluid, Glucose 232 mg/dL; Pleural Fluid, LDH 140 U/L (Not Available)
[2019-04-28 18:16] LABS: BF Color Yellow; Body Fluid Source Pleural Fluid; Clarity Hazy (Clear)
[2019-04-28 18:17] LABS: Tube # EDTA
[2019-04-28] MEDS: HumaLOG 300 UNITS/3 ML VIAL SC PRN ×2 (18:29→20:55)
--- NOTE | 2019-04-28 18:44 | CON ---
DATE OF CONSULTATION: HISTORY OF PRESENT ILLNESS: The patient is an 78-year-old woman with a history of atrial fibrillation and a pacemaker , who presented with increasing dyspnea. The patient was in the hospital a month ago and had a placement of electronic pacemaker. She was known to have sick sinus syndrome. She also was recently diagnosed with lung carcinoma. The patient was on chronic anticoagulation therapy. She presented with increasing dyspnea. The patient denied having any chest discomfort. PAST MEDICAL HISTORY: 1. Lung carcinoma. 2. Permanent atrial fibrillation. 3. Sick sinus syndrome. 4. COPD. 5. Congestive heart failure secondary to diastolic dysfunction. PAST SURGICAL HISTORY: SOCIAL HISTORY: Former smoker. ALLERGIES: NO KNOWN DRUG ALLERGIES. REVIEW OF SYSTEMS: Unremarkable. PHYSICAL EXAMINATION: GENERAL: This is an ill-appearing woman, in mild distress. VITAL SIGNS: Blood pressure 134/86. NECK: Showed no jugular venous distention. LUNGS: Have decreased breath sounds in the right lung field. HEART: Irregular rate and rhythm. Normal S1 and S2. ABDOMEN: Nondistended. EXTREMITIES: Show moderate edema. LABORATORY DATA: Sodium 130, potassium 3.5, chloride 85, bicarb 41, BUN 12, creatinine 0.61, glucose 253. White blood cell count 5.7, hemoglobin 12.0, hematocrit 38.1, platelets were 73. Her EKG revealed atrial fibrillation, nonspecific T-wave abnormality. IMPRESSION AND PLAN: 1. Dyspnea. 2. Large pleural effusion. 3. Non-small cell lung carcinoma. 4. History of permanent atrial fibrillation. 5. History of pacemaker placement. This unfortunate woman with non-small cell carcinoma of the lung has a large pleural effusion. She underwent a thoracentesis. From a cardiac standpoint, she will remain on apixaban. We will follow this patient with you through her hospitalization. Job ID: [id number] [facility]
[2019-04-28 19:52] LABS: BF Segmented Neutrophils 15 %; Cell Count Non Hematic 41 %; Eosinophils 1 %; Lymphocytes 42 %
[2019-04-28 20:05] LABS: Fluid, pH - Pleural Fld Greater than 7.50 (7.60 - 7.66)
[2019-04-28] MEDS ORDERED: Sodium Chloride 0.9% 10 ML ONE (20:25)
[2019-04-28] MEDS: Apixaban 2.5 MG TAB PO SCH (20:53)
[2019-04-28] MEDS ORDERED: Famotidine 20 MG TAB PO SCH (21:00)
[2019-04-29] MEDS: Apixaban 2.5 MG TAB PO SCH ×3 (09:28→21:11)
[2019-04-29] MEDS: predniSONE 20 MG TAB PO SCH ×2 (09:28→12:52)
[2019-04-29] MEDS: acetaZOLAMIDE Sodium 500 mg Vial IVP SCH ×2 (09:28→12:52)
--- NOTE | 2019-04-29 11:41 | CON ---
DATE OF CONSULTATION: HISTORY OF PRESENT ILLNESS: Tasha Tellez is an 78-year-old female, who was recently in the rehab, started having difficulty breathing and hypoxemia, brought to the ER, where x-ray showed a large pleural effusion. We were consulted regarding thoracentesis. The patient has known history of stage IV adenocarcinoma with pleural effusion, previous thoracentesis, previous bronchoscopy which showed extensive nodular friable mucosa involving the entire right lower lobe. She is yet to receive chemotherapy. She has a cough. She is weak, lost considerable weight. Appetite is poor. She has had vague chest pain. No fever or chills. PAST MEDICAL HISTORY: Adenocarcinoma, atrial fibrillation, COPD, severe deconditioning, marked weight loss, SVT. PREVIOUS SURGERIES: Cataracts, cholecystectomy, spinal surgery, tubal ligation, pacemaker, MediPort. SOCIAL HISTORY: Former smoker, quit 20 years ago, smoked for 40 years. MEDICATIONS: Include; 1. Eliquis 2.5. 2. Tramadol 50. 3. Potassium. 4. Zofran. 5. Synthroid. 6. DuoNeb. 7. Gabapentin. 8. Cardizem 360. 9. Lasix 40. ALLERGIES: NONE. REVIEW OF SYSTEMS: Otherwise, unremarkable. PHYSICAL EXAMINATION: VITAL SIGNS: Saturations 99%, temperature 98, pulse 120 and irregular, blood pressure 134/86, afebrile. CHEST: Decreased breath sounds in the right lung. Left lung unremarkable. No wheezing. CARDIAC: SVT. ABDOMEN: Soft. NEUROLOGIC: Awake, alert, responsive. EXTREMITIES: 2+ edema. DIAGNOSTIC STUDIES: X-ray, large pleural effusion. White count 5000, hemoglobin and hematocrit are 12 and 38, platelet count is 73. PO2 is 64, pCO2 pH 7.44, on 2 L. Sodium bicarb 41. BNP 135. ASSESSMENT: 1. Acute on chronic respiratory failure, marked metabolic acidosis, probably secondary to diuretic. 2. Large pleural effusion, stage IV adenocarcinoma, marked weight loss, SVT. PLAN: I am going to probably add some Diamox to her present regime. Otherwise, I agree with present management and treatment. Consult Oncology. Prognosis is guarded. Consultation note, 70 minutes, 50% direct patient care. Job ID: [id number]
--- NOTE | 2019-04-29 11:42 | OP ---
DATE OF PROCEDURE: 04/28/2019 DESCRIPTION OF PROCEDURE: After informed consent, with the help of Dr. Cortez, medicine resident, year 2, the right posterior thorax cleaned with chlorhexidine. 1% lidocaine was used to infiltrate the right 10th intercostal space, after the pleural cavity was entered, about 10 mL of slightly sanguinous turbid yellow fluid was removed. Thereafter using an 8 Hungarian catheter additional was removed without difficulty. Fluids were sent for studies including cytology and culture. Job ID: [id number]
[2019-04-29] MEDS: Digoxin 0.125 MG TAB ONE ×2 (11:50→13:40)
[2019-04-29] MEDS: Metoprolol Tartrate 25 MG TAB ONE ×2 (11:50→13:40)
--- NOTE | 2019-04-29 13:34 | PRG ---
DATE OF SERVICE: 04/29/2019 SUBJECTIVE: This morning, she is doing better, status post thoracentesis. OBJECTIVE: VITAL SIGNS: Saturations are 95% on 3 L, pulse 104, blood pressure 130/80, respiratory rate 18. CHEST: Decreased breath sounds in right lung. Left unremarkable. CARDIAC EXAMINATION: Normal S1, S2. No gallop. ABDOMEN: No masses. IMPRESSION: Recurrent pleural effusion, metastatic adenocarcinoma, severe deconditioning. She is still awaiting input from Oncology regarding any treatment. Pulmonary mcdonald, otherwise, continue supportive care. She had marked metabolic acidosis, was started on Diamox for several days. We will hold off any Lasix. We will follow. Job ID: [id number]
[2019-04-29 15:58] LABS: Anion Gap 10 mmol/L (10-20); BUN (Urea Nitrogen) 12 mg/dL (9.8-20.1); Calc. Creatinine Clearance 81 mL/min (70-130); Calcium 9.2 mg/dL (7.8-10.44); Carbon Dioxide 35 mmol/L (23-31); Chloride 86 mmol/L (98-107); Estimated GFR-MDRD Greater than 90; Potassium 4.2 mmol/L (3.5-5.1)
[2019-04-29 15:59] LABS: Glucose 271 mg/dL (83-110); Sodium 127 mmol/L (136-145)
--- NOTE | 2019-04-29 16:07 | PQF ---
CLINICAL DOCUMENTATION IMPROVEMENT CLARIFICATION FORM: ICD-10 Updated PLEASE DO AN ADDENDUM TO THE PROGRESS NOTE WITH ANY DOCUMENTATION UPDATES OR ADDITIONS AND CARRY THROUGH TO DC SUMMARY. THANK YOU. DATE: 04/29/19 ATTN: DR. CROUCH Please exercise your independent, professional judgment in responding to the clarification form. Clinical indicators are provided on the bottom of this form for your review Please check appropriate box(s): HEART FAILURE: A. ACUITY [ ] Acute [ x ] Acute on Chronic [ ] Chronic B. TYPE [ ] Systolic / HFrEF [ x ] Diastolic / HFpEF [ ] Combined Systolic / Diastolic [ ] Hypertensive Heart and Kidney disease [ ] Hypertensive Heart Disease [ ] Hypertensive Kidney Disease [ ] Other diagnosis [ ] Unable to determine In addition, please specify: Present on Admission (POA): [ x ] Yes [ ] No [ ] Unable to determine For continuity of documentation, please document condition throughout progress notes and discharge summary. Thank You. 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 All Rights Reserved [email or web address] Office: [phone] [facility]
[2019-04-29 17:01] LABS: Hemoglobin 11.4 g/dL (12.0-16.0); Mean Corpuscular Volume 84.1 fL (78.0-98.0); White Blood Cell (WBC) Count 4.1 thou/uL (4.8-10.8)
[2019-04-29 17:02] LABS: #Lymphocytes 0.3 thou/uL (1.20-3.40); #Monocytes 0.1 thou/uL (0.11-0.59); #Neutrophils 3.6 thou/uL (1.40-6.50); %Eosinophils 0.7 % (0.0-10.0); %Lymphocytes 7.7 % (21.0-51.0); %Monocytes 2.2 % (0.0-10.0); %Neutrophils 89.4 % (42.0-75.0); Mean Corpuscular HGB CONC 32.4 g/dL (32.0-36.0); Mean Corpuscular Hemoglobin 27.2 pg (27.0-31.0); Platelet Count 71 thou/uL (130-400); RBC Distribution Width 13.6 % (11.5-14.5)
[2019-04-29] MEDS: HumaLOG 300 UNITS/3 ML VIAL SC PRN (19:25)
[2019-04-29] MEDS ORDERED: Gabapentin 300 MG CAP PO SCH (21:00)
[2019-04-29] MEDS ORDERED: Melatonin 3 MG TAB PO SCH (21:00)
[2019-04-29] MEDS: Acetaminophen 325 MG TAB PO PRN (21:09)
[2019-04-29] MEDS: Metoprolol Tartrate 25 MG TAB PO SCH (21:10)
[2019-04-29] MEDS: Famotidine 20 MG TAB PO SCH (21:10)
--- NOTE | 2019-04-30 05:31 | PDOC.FM ---
- Subjective Subjective: Ms. Tellez is doing well this morning. She is breathing much more comfortably. I spoke with her yesterday evening and their goals are for her to be discharged home with home health. - Objective MAR Reviewed: Yes Vital Signs & Weight: Vital Signs (12 hours) Temp Pulse Resp BP Pulse Ox 04/30/19 03:22 97.7 F 65 18 103/55 L 97 04/30/19 01:41 96 04/30/19 00:00 98.4 F 62 16 96/51 L 97 04/29/19 22:12 86 16 95 04/29/19 20:00 98 04/29/19 19:58 97.7 F 85 18 106/55 L 98 Weight Weight 63.14 kg I&O: 04/28/19 04/29/19 04/30/19 06:59 06:59 06:59 Intake Total 100 1190 Output Total 300 525 Balance -200 665 Result Diagrams: 04/30/19 04:34 04/30/19 04:34 Phys Exam - Physical Examination Constitutional: NAD HEENT: moist MMs, sclera anicteric Neck: no JVD, supple Respiratory: no wheezing, no rales, no rhonchi, clear to auscultation bilateral Cardiovascular: no significant murmur, no rub Atrial fibrillation, rate controlled Gastrointestinal: soft, non-tender 1+ edema to the level of the thigh Neurological: non-focal, normal sensation, moves all 4 limbs Dx/Plan (1) CHF exacerbation Code(s): I50.9 - HEART FAILURE, UNSPECIFIED Status: Acute (2) COPD exacerbation Code(s): J44.1 - CHRONIC OBSTRUCTIVE PULMONARY DISEASE W (ACUTE) EXACERBATION Status: Acute (3) Hyponatremia Code(s): E87.1 - HYPO-OSMOLALITY AND HYPONATREMIA Status: Acute (4) Non-small cell lung cancer Code(s): C34.90 - MALIGNANT NEOPLASM OF UNSP PART OF UNSP BRONCHUS OR LUNG Status: Acute (5) S/P placement of cardiac pacemaker Code(s): Z95.0 - PRESENCE OF CARDIAC PACEMAKER Status: Acute (6) Tachy-lyubov syndrome Code(s): I49.5 - SICK SINUS SYNDROME Status: Acute (7) Adenocarcinoma Code(s): C80.1 - MALIGNANT (PRIMARY) NEOPLASM, UNSPECIFIED Status: Chronic (8) Atrial fibrillation, persistent Code(s): I48.1 - PERSISTENT ATRIAL FIBRILLATION * DO NOT USE * Status: Chronic - Plan Plan: Malignant pleural effusion - s/p therapeutic thoracentesis. 1250mL was drained off. - patient was feeling much better from a respiratory standpoint yesterday. - patient has outpatient oncology appt on Saturday. - Discussed with patient that this will likely recur and at some point she may need a drain - Dr. Lujan following. CHF Exacerbation - ECHO 02/2019 EF 50-55% - On Lasix 40po q day prior to admission. However, cardiology and pulmonology agreed that she does not need it for now. Recommend f/u with PCP for restarting. - strict I/Os COPD - 40 pack year smoking history - DuoNedmitri qID scheduled - Will give short course of steroids - Continuous O2 for sats 88-92% Adenocarcinoma of the lung - Per the patient and her , it is Stage IV. - Patient has appt with oncology outpatient next week. - Desire is to be discharged home with home health, today, and f/u with oncology Saturday. Atrial fibrillation with RVR - Has appointment with Dr. Wilson next week for ablation, waiting on recommendations from cardiology if they want to pursue that now or as an outpatient. - On PO Diltiazem and Digoxin - on anticoagulation with eliquis 2.5 bid. DM II, new diagnosis - A1c recently done in hospital 7.6 - Blood glucose of 258 on arrival. - She was on sliding scale insulin previously, however due to the steroids and new diagnosis we will start Metformin 500mg BID and recommend f/u with primary care physician. Hypothyroidism - resume home med (Levothyroxine 50mcg) GERD - resume famotidine Disposition/LOS: Dispo: Guarded, LOS > 48 hours. Code: DNAR VTE: Arnulfo, SCDs Addendum - Attending - Attending Attestation Date/Time: 04/30/19 1700 I personally evaluated the patient and discussed the management with Dr. Sheffield. I agree with the History, Examination, Assessment and Plan documented above with any addition or exceptions noted below.
[2019-04-30 05:44] LABS: #Eosinphils 0.1 thou/uL (0.0-0.7); #Lymphocytes 0.7 thou/uL (1.20-3.40); #Monocytes 0.5 thou/uL (0.11-0.59); #Neutrophils 7.6 thou/uL (1.40-6.50); %Basophils 0.1 % (0.0-1.0); %Eosinophils 1.2 % (0.0-10.0); %Lymphocytes 8.3 % (21.0-51.0); %Monocytes 5.8 % (0.0-10.0); %Neutrophils 84.6 % (42.0-75.0); Hemoglobin 11.2 g/dL (12.0-16.0); Mean Corpuscular HGB CONC 32.8 g/dL (32.0-36.0); Mean Corpuscular Hemoglobin 27.8 pg (27.0-31.0); Mean Corpuscular Volume 84.6 fL (78.0-98.0); Platelet Count 90 thou/uL (130-400); RBC Distribution Width 13.7 % (11.5-14.5); Red Blood Cell (RBC) Count 4.04 mill/uL (4.20-5.40)
[2019-04-30] MEDS ORDERED: Levothyroxine Sodium 50 MCG TAB PO SCH (06:00)
[2019-04-30 06:03] LABS: BUN (Urea Nitrogen) 16 mg/dL (9.8-20.1); Calc. Creatinine Clearance 77 mL/min (70-130); Calcium 9.2 mg/dL (7.8-10.44); Estimated GFR-MDRD Greater than 90; Glucose 157 mg/dL (83-110)
[2019-04-30 06:11] LABS: Anion Gap 11 mmol/L (10-20); Carbon Dioxide 35 mmol/L (23-31); Chloride 88 mmol/L (98-107); Sodium 131 mmol/L (136-145)
[2019-04-30 06:13] LABS: Potassium 2.9 mmol/L (3.5-5.1)
[2019-04-30] MEDS ORDERED: Furosemide 40 MG TAB PO SCH (07:30)
[2019-04-30] MEDS ORDERED: Potassium Chloride 40 MEQ in Premix Bag 1 BAG IVPB SCH (07:30)
[2019-04-30] MEDS ORDERED: Potassium Chloride 20 MEQ TAB PO SCH (08:00)
[2019-04-30] MEDS: Famotidine 20 MG TAB PO SCH (08:52)
[2019-04-30] MEDS: predniSONE 20 MG TAB PO SCH (08:53)
[2019-04-30] MEDS: Metoprolol Tartrate 25 MG TAB PO SCH (08:54)
[2019-04-30] MEDS: Apixaban 2.5 MG TAB PO SCH (08:54)
[2019-04-30] MEDS: acetaZOLAMIDE Sodium 500 mg Vial IVP SCH (08:59)
[2019-04-30] MEDS ORDERED: Digoxin 0.125 MG TAB PO SCH (09:00)
[2019-04-30] MEDS ORDERED: Insulin Glargine 10 UNITS in Pre-Filled Syringe 1 EACH SC SCH (09:00)
[2019-04-30] MEDS ORDERED: Polyethylene Glycol 3350 17 GM Packet PO SCH (09:00)
[2019-04-30] MEDS ORDERED: metFORMIN 500 MG TAB PO SCH (09:00)
[2019-04-30] MEDS: Potassium Chloride 20 MEQ in Premix Bag 1 BAG IVPB SCH ×2 (09:02→11:57)
--- NOTE | 2019-04-30 09:41 | PRG ---
DATE OF SERVICE: 04/30/2019 SUBJECTIVE: Ms. Tellez feels much better today. She states she is back to baseline. Her shortness of breath has much improved. She still has a cough that seems to have improved. OBJECTIVE: VITAL SIGNS: Blood pressure 104/49, pulse 100, temperature 97.4. LUNGS: Decreased breath sounds noted on right versus left. HEART: Regular rate and rhythm. ABDOMEN: Soft, nontender, nondistended. EXTREMITIES: No edema. PERTINENT LABORATORY DATA: Hemoglobin 11.2, creatinine 0.58. IMPRESSION: 1. Atrial fibrillation. 2. Pleural effusion, status post thoracentesis. 3. Adenocarcinoma. RECOMMENDATIONS: 1. Await final results of the pleural fluid. 2. Continue to manage rate control with beta-waylon therapy and Cardizem as long as blood pressure is stable. 3. Hold Lasix due to blood pressure of 104 systolic. 4. If she truly has adenocarcinoma noted in the pleural fluid, may need to discuss prognosis with Oncology. 5. At this point, I do not feel being in sinus rhythm with rate control is a major contributor, and may be more related to recent cancer. Job ID: [id number]
--- NOTE | 2019-04-30 09:51 | PRG ---
DATE OF SERVICE: 04/30/2019 SUBJECTIVE: She is better, less short of breath. OBJECTIVE: VITAL SIGNS: Temperature 97, pulse 100, respiratory saturations are 95% on 3 L, blood pressure 104/49. CHEST: Rhonchi and crackles, right lung. Left, unremarkable. CARDIAC: Normal S1 and S2. No gallops. ABDOMEN: No masses. LABORATORY DATA: White count is 9000. Lytes are normal. Potassium, low. ASSESSMENT: 1. Respiratory failure. 2. Chronic obstructive pulmonary disease. 3. Congestive heart failure. 4. Supraventricular tachycardia. 5. Adenocarcinoma, still awaiting input from Oncology. PLAN: We will follow. Job ID: [id number]
--- NOTE | 2019-04-30 13:00 | PDOC.PALCO ---
Palliative Care Consult - Consult Details Requesting Physician: Dr Sheffield Reason for Consult: goals of care, family support - Pertinent HPI Patient was diagnosed with lung CA in February, chronic COPD and Heart Failure. Patient was discharged from [facility] 04/16 for rehab after an admission for exacerbation of CHF and COPD. Experienced shortness of breath that was not alleviated with interventions at rehab facility, EMS called and patient sent to [facility] emergency room, subsequently admitted for medical management. - Pertinent PMH Heart Failure with preserved ejection fraction, COPD, Atrial Fib, CA of lung - Social History Smoking Status: Never smoker Smoking: no tobacco exposure Alcohol Use: none Drug Use History: none Living Situation: - Medications MAR Reviewed: Yes - Allergies Allergies/Adverse Reactions: Allergies Allergy/AdvReac Type Severity Reaction Status Date / Time No Known Allergies Allergy Verified 04/09/19 01:56 - Subjective Awake, alert. Appears to have difficulty with short term memory, specifically details. Tripod position when talking, denies shortness of breath, chest discomfort, tightness. - ROS Constitutional: alert, weakness Eyes: other (Negative for vision changes, drainage) Respiratory: dry cough, shortness of breath, shortness of breath with extertion Cardiology: edema Psychological: memory changes - Objective Vital Signs: Vital Signs - Most Recent Temp Pulse Resp BP Pulse Ox 97.4 F L 88 20 94/51 L 98 04/30/19 11:07 04/30/19 11:18 04/30/19 11:18 04/30/19 11:07 04/30/19 11:18 Palliative Performance Scale: 40 - Physical Exam Constitutional: NAD, ill appearing HEENT: EOMI, moist MMs (adventicious to left lung) Gastrointestinal: continent Genitourinary: continent Musculoskeletal: edema present Neurology: moves all 4 limbs Skin: cap refill <2 seconds, fragile Psychiatric: A&O x 3 (Difficulity with short term memory intermittantly.) - Problem List (1) Palliative care encounter Code(s): Z51.5 - ENCOUNTER FOR PALLIATIVE CARE Current Visit: Yes Status: Acute (2) Physical deconditioning Code(s): R53.81 - OTHER MALAISE Current Visit: Yes Status: Acute (3) CHF exacerbation Code(s): I50.9 - HEART FAILURE, UNSPECIFIED Current Visit: No Status: Acute (4) COPD exacerbation Code(s): J44.1 - CHRONIC OBSTRUCTIVE PULMONARY DISEASE W (ACUTE) EXACERBATION Current Visit: No Status: Acute (5) Non-small cell lung cancer Code(s): C34.90 - MALIGNANT NEOPLASM OF UNSP PART OF UNSP BRONCHUS OR LUNG Current Visit: No Status: Acute - Plan/Recommendations Plan: Discharge home with home health Will follow up with Oncology Saturday Discussed safety measures to have at home to maintain optimal functional status. Rolling walker with seat, four pronged cane. Discussed that she may not need it, however to always have accessible in care she becomes fatiged or short of breath [60] minutes spent on this encounter with >50% of the time in counseling and coordination of care. Thank you for this very appropriate consult.
[2019-04-30 15:57] VITALS: BP 108/59; TEMP 98.6
[2019-04-30] MEDS: HumaLOG 300 UNITS/3 ML VIAL SC PRN (16:53)
--- NOTE | 2019-05-01 01:49 | CON ---
DATE OF CONSULTATION: REASON FOR CONSULTATION: Lung cancer. HISTORY OF PRESENT ILLNESS: An 78-year-old female with adenocarcinoma of the right lower lobe with metastatic disease to lymph nodes and pleural fluid, who presented to the hospital from [facility] for worsening shortness of breath. She had a COPD/CHF exacerbation on April 16 and was discharged to inpatient rehab. She was improving until this occurrence. Last hospitalization, she had a pacemaker and MediPort placed. Recently, her breathing became worse and worse, and could not take a deep breath and was sent over to the hospital. She was thought to have a CHF and COPD exacerbation again with worsening pleural effusion, which has been drained with dramatic improvement in her symptoms. Fluid cytology did show adenocarcinoma. She is feeling well today and is hoping to be discharged home. Her heart rate is currently controlled and hopefully she is allowed to be discharged so she can begin treatment next week. REVIEW OF SYSTEMS: Ten-point review of systems negative except as per HPI. PAST MEDICAL HISTORY: Lung cancer, atrial fibrillation, COPD, CHF, diabetes. PAST SURGICAL HISTORY: MediPort, pacemaker, cholecystectomy, tubal ligation. FAMILY HISTORY: Noncontributory. SOCIAL HISTORY: Forty years of smoking. Occasional alcohol. PHYSICAL EXAMINATION: VITAL SIGNS: Temperature 98.6, pulse 86, respirations 18, saturating 97% on 3 L by nasal cannula, blood pressure 108/59. GENERAL APPEARANCE: The patient is sitting up in bed, in no acute distress. HEENT: Normocephalic and atraumatic. No scleral icterus present. NECK: Supple. CARDIOVASCULAR: S1, S2. Regular rhythm and rate. LUNGS: Diminished breath sounds on the right side. Respirations are nonlabored. ABDOMEN: Soft, nondistended. NEUROLOGIC: Cranial nerves 2 through 12 are grossly intact. LABORATORY DATA: White blood cells 9.0, hemoglobin 11.2, platelets 90. Sodium 131, potassium 2.9, chloride 88, carbon dioxide 35. BUN 16, creatinine 0.58. ASSESSMENT AND PLAN: An 78-year-old female with metastatic adenocarcinoma of the right lung with malignant pleural effusion, presenting to the hospital with shortness of breath, now improved, status post paracentesis. She also has mild CHF, COPD exacerbation, and all of her symptoms are currently improving. She has chronic thrombocytopenia for years and this is stable. I believe, she is stable for discharge home and is planned to start treatment with Keytruda next week. I will see her next Saturday in the clinic and hopefully she will have a good response to immune therapy given her very high PD-L1 of 95%. Thank you for this consult. Job ID: [id number]
--- NOTE | 2019-05-01 06:30 | DIS ---
DATE OF ADMISSION: 04/28/2019 DATE OF DISCHARGE: 04/30/2019 RESIDENT: Prachi Sheffield MD ADMITTING ATTENDING: Codey Saldaña MD DISCHARGE ATTENDING: Edmar Haney MD CONSULTS: 1. Dr. Wilson, Cardiology. 2. Dr. Lujan, Pulmonology. 3. Heart Failure Disease Management. 4. PT and OT. PRIMARY DIAGNOSES: 1. Shortness of breath secondary to malignant pleural effusion. 2. Congestive heart failure exacerbation. SECONDARY DIAGNOSES: 1. Congestive heart failure exacerbation. 2. Hypertension. 3. Chronic obstructive pulmonary disease. 4. Diabetes. 5. New onset, stage IV cancer of the right lung, presumed adenocarcinoma. DISCHARGE MEDICATIONS: 1. Digoxin 0.125 mg daily. 2. Diltiazem 60 mg q.i.d. 3. Famotidine 20 mg b.i.d. 4. Ketotifen eye drops b.i.d. 5. Levothyroxine 50 mcg daily. 6. Melatonin 6 mg at night. 7. Eliquis 2.5 mg b.i.d. 8. Lasix 20 mg daily. 9. Gabapentin 300 mg at night. 10. DuoNeb q.4 hours as needed. 11. Metformin 500 mg b.i.d. 12. Metoprolol succinate 50 mg daily. 13. MiraLAX daily. 14. Prednisone 40 mg each morning for the next 3 days. 15. Tramadol 50 mg as needed. Discontinued medications: Lasix 40 mg daily. HISTORY OF PRESENT ILLNESS/HOSPITAL COURSE: Ms. Tellez is an 78-year-old female, who presented to the ER on the day of April 28 from [facility] for increasing work of breathing and shortness of breath. She has history of atrial fibrillation, heart failure with preserved ejection fraction, COPD, and recently diagnosed adenocarcinoma of the lung, for which she is yet to see Oncology. She was diagnosed with lung cancer in after she was presumed to have a pneumonia that was not resolving. Dr. Lujan did a bronchoscopy, which revealed a mass in the lung. He was able to take a small blush sample of the mass. He was later able to do a thoracentesis for a pleural effusion, which led to the diagnosis of adenocarcinoma. She was discharged from that hospitalization and sent to inpatient rehab and has been undergoing physical therapy. She feels like her body has been improving with physical therapy. However, her breathing has significantly worsened over the last several days. On admission, she was noted to have a large right-sided pleural effusion on chest x-ray. Dr. Lujan was consulted and decided to do a therapeutic thoracentesis, which drained 1.25 L of pleural fluid that was noted to be positive for malignant cells consistent with metastatic carcinoma on pathology. While she was hospitalized, she was gently diuresed and her electrolytes were replaced as needed. Palliative Care was consulted and discussed goals of care with the patient. At this time, the patient is pursuing chemotherapy and they have an appointment as outpatient with Oncology on Saturday of next week. Her goal was to make to home and to stay at home with home health until her appointment with Oncology next week. DISPOSITION: Guarded. DISCHARGE INSTRUCTIONS: 1. Location: Home with home health. 2. Diet: Heart healthy, low-sodium, fluid restricted. 3. Activity: Ad nani. 4. Followup: Follow up with primary care physician, oncologist, and dressage judge. Job ID: [id number]
== END 2019-04-30 19:09 | disposition home health service (06) | DRG 180 ==
LOC: ERS 10:18 → 2NO 12:56
PROVIDERS: ADMIT Emergency Medicine; ATTEND Emergency Medicine
PROC: 0W993ZX Drainage of Right Pleural Cavity, Percutaneous Approach, Diagnostic (ICD-10-PCS; principal; 2019-04-28)
DX: C78.2 Secondary malignant neoplasm of pleura (principal); I50.31 Acute diastolic (congestive) heart failure; J18.9 Pneumonia, unspecified organism; J96.20 Acute and chronic respiratory failure, unspecified whether with hypoxia or hypercapnia; C34.91 Malignant neoplasm of unspecified part of right bronchus or lung; E87.1 Hypo-osmolality and hyponatremia; I48.19 Other persistent atrial fibrillation; E87.2 Acidosis; I47.1 Supraventricular tachycardia; J44.0 Chronic obstructive pulmonary disease with (acute) lower respiratory infection; E03.9 Hypothyroidism, unspecified; K21.9 Gastro-esophageal reflux disease without esophagitis; Z66 Do not resuscitate; I49.5 Sick sinus syndrome; R63.4 Abnormal weight loss; J91.0 Malignant pleural effusion; Z51.5 Encounter for palliative care; E11.9 Type 2 diabetes mellitus without complications; I11.0 Hypertensive heart disease with heart failure; Z79.01 Long term (current) use of anticoagulants; Z90.49 Acquired absence of other specified parts of digestive tract; Z98.51 Tubal ligation status; Z95.0 Presence of cardiac pacemaker; Z87.891 Personal history of nicotine dependence; Z98.42 Cataract extraction status, left eye; Z98.41 Cataract extraction status, right eye; Z68.25 Body mass index [BMI] 25.0-25.9, adult
CPT/HCPCS: 36415; 36416; 71045; 80048; 80053; 82150; 82805; 82945; 83615; 83880; 84145; 84157; 84478; 84484; 85025; 85060; 87070; 87116; 87205; 87206; 88112; 88305; 89051; 93005; 93798; 94640; J1120; J1940; J2930; J3480; J7512; J7611; J7620

== ENCOUNTER 2019-05-10 09:31 | Inpatient (IN) | payer MEDICARE, BC ==
[2019-05-10] MEDS ORDERED: Furosemide 40 MG/4 ML VIAL ONE (10:48)
[2019-05-10 10:59] LABS: #Basophils 0.1 thou/uL (0.0-0.2); #Eosinphils 0.1 thou/uL (0.0-0.7); #Lymphocytes 0.9 thou/uL (1.20-3.40); #Monocytes 0.4 thou/uL (0.11-0.59); #Neutrophils 9.4 thou/uL (1.40-6.50); %Basophils 0.5 % (0.0-1.0); %Eosinophils 1.4 % (0.0-10.0); %Lymphocytes 8.1 % (21.0-51.0); %Monocytes 3.9 % (0.0-10.0); %Neutrophils 86.2 % (42.0-75.0); Mean Corpuscular HGB CONC 32.4 g/dL (32.0-36.0); Mean Corpuscular Hemoglobin 27.3 pg (27.0-31.0); Mean Platelet Volume 11.2 fL (7.4-10.4); Platelet Count 74 thou/uL (130-400); RBC Distribution Width 14.1 % (11.5-14.5); Red Blood Cell (RBC) Count 4.76 mill/uL (4.20-5.40); White Blood Cell (WBC) Count 10.9 thou/uL (4.8-10.8)
[2019-05-10 11:16] LABS: ALT (SGPT) 25 U/L (8-55); AST (SGOT) 16 U/L (5-34); Albumin 3.2 g/dL (3.4-4.8); Alkaline Phosphatase 110 U/L (40-110); Anion Gap 12 mmol/L (10-20); BUN (Urea Nitrogen) 17 mg/dL (9.8-20.1); Bilirubin, Total 0.3 mg/dL (0.2-1.2); Calc. Creatinine Clearance 0 mL/min (70-130); Calcium 9.7 mg/dL (7.8-10.44); Carbon Dioxide 34 mmol/L (23-31); Chloride 90 mmol/L (98-107); Estimated GFR-MDRD Greater than 90; Globulin 2.5 g/dL (2.4-3.5); Glucose 188 mg/dL (83-110); Potassium 4.2 mmol/L (3.5-5.1); Protein, Total 5.7 g/dL (6.0-8.3); Sodium 132 mmol/L (136-145)
--- NOTE | 2019-05-10 12:38 | RAD ---
CHEST 1 VIEW: Date: 05/10/19 HISTORY: Cough. COMPARISON: 04/28/19. FINDINGS: Fairly extensive pleural and parenchymal opacity changes in the right lower chest. Left ICD. Right rice bclavian catheter and injection port. Left lung is clear. Heart size normal. IMPRESSION: Overall stable abnormal pleural and parenchymal opacity changes in the right mid and lower chest. No significant new process. POS: FARHADH
--- NOTE | 2019-05-10 16:28 | HP ---
PRIMARY CARE PHYSICIAN: Dr. Hickman. ONCOLOGIST: Dr. Michelle. NICKER AND BREAKER: Dr. Wilson. SALES TEAM MANAGER: Dr. Lujan. CHIEF COMPLAINT: Worsening shortness of breath, lower extremity edema, weakness for days. HISTORY OF PRESENT ILLNESS: This is an 78-year-old female, past medical history of chronic hypoxic respiratory failure, on home oxygen 2 to 3 L, COPD with remote nicotine dependence, recently diagnosed stage IV lung adenocarcinoma with recurrent malignant pleural effusion with recent thoracentesis 1.25L pathology positive for malignancy, who completed her first round of immunotherapy on Saturday with Keytruda, atrial fibrillation with recent permanent pacemaker implantation in March 2019, on Eliquis, diastolic CHF with recent exacerbation, hypertension, hypothyroidism, who was recently hospitalized and discharged home from acute inpatient rehab facility approximately 10 days ago and brought into [facility] ER by spouse for several-day history of worsening peripheral edema, exertional dyspnea, orthopnea, diminished functional status prompting further evaluation. In the ER, the patient was notably volume overloaded. A 1-view chest x-ray suggested worsening of right pleural effusion. Of note, the patient underwent thoracentesis on 04/28/2019, 1.25 L with notable malignant pleural effusion. The patient was administered 40 mg of IV Lasix, nebulized bronchodilator, and admitted for further inpatient evaluation. A PureWick catheter has been applied. At bedside, the patient corroborates history. She is accompanied by spouse who also corroborates history. She notes decreased oral intake. She reports feeling better since recent hospital discharge, but notes in rehab facility having recurrence of edema. She is compliant with home medications including Lasix 20 mg twice daily and Eliquis 2.5 mg twice daily, last dose this morning. She is also on Lopressor twice daily and diltiazem four times daily and oral digoxin. Advance directives were discussed with the patient, who states she is a DNR/DNI , and spouse, who is the medical power of employment law attorney and provides advance directives paperwork. PAST MEDICAL HISTORY: Chronic hypoxic respiratory failure, on 3 L home oxygen; COPD with remote nicotine use; recently diagnosed stage IV lung adenocarcinoma with placement of right chest chemo port; atrial fibrillation with recent permanent pacemaker implantation in March 2019, on Eliquis and Lopressor and digoxin and diltiazem; diastolic CHF; hypertension; hypothyroidism; recent hospitalization for CHF exacerbation and recurrent right-sided pleural effusion. PAST SURGICAL HISTORY: Chemo port placement, permanent pacemaker implantation, back surgery, recurrent thoracenteses, cholecystectomy. SOCIAL HISTORY: The patient admits to remote nicotine dependence, has [id number] history, maintaining cessation for the past 20 years, she uses a walker at baseline. She is on home oxygen continuous, 3 L. She currently has home health care with [facility]. ALLERGIES: NONE REPORTED. REVIEW OF SYMPTOMS: Pertinent positives noted per HPI, remainder of review of systems negative. HOME MEDICATIONS: Home medications will be reviewed as per admission medication reconciliation FAMILY HISTORY: The patient's mother and grandmother had congestive heart failure. The patient's father had prostate cancer. The patient's brother has Parkinson disease. PHYSICAL EXAMINATION: VITAL SIGNS: Temperature 98.4; pulse 90s to 100s, atrial fibrillation; blood pressure 119/62, oxygen saturation 94% on 3 L oxygen, and respiratory rate 18 to 20. GENERAL APPEARANCE: This is an elderly female, who is awake, alert, and oriented, tachypneic, limited historian. HEENT: Normocephalic and atraumatic. Pupils are equally round. Extraocular muscles are intact. No facial asymmetry. CARDIOVASCULAR SYSTEM: S1 and S2, irregularly irregular, tachycardic. No harsh murmurs. There is a chest wall healing incision site overlying the left chest wall with notable permanent pacemaker. LUNGS: The patient is tachypneic, decreased work of breathing, bilateral posterior on auscultation with poor air entry noted. Some left basilar breath sounds appreciated. No right lung base breath sounds noted. ABDOMEN: Soft, nontender, and nondistended. EXTREMITIES: 3+ bilateral lower extremity pitting edema. No cyanosis or deformities. Full passive range of motion in arms and legs. SKIN: Warm to touch without rash or abrasion. Notable skin pallor. Right chest wall chemo port noted. Left chest wall pacemaker insertion noted. LABORATORY DATA: Sodium 132, potassium 4.2, chloride 90, bicarb 34, glucose 188 , BUN and creatinine are 17/0.57. Total protein is 5.7, albumin 3.2. BNP 116.6. WBC 10.9, hemoglobin and hematocrit are 13/40, platelets 74. IMAGING: One view chest x-ray in comparison to 04/28/2019, revealed stable abnormal pleural and parenchymal opacity changes in the right mid and lower chest with no significant new processes. ASSESSMENT: 1. Acute on chronic respiratory failure with hypoxia. Likely secondary to worsening recurrent right-sided pleural effusion and congestive heart failure exacerbation. The patient will be admitted to inpatient status and placed on telemetry monitoring. We will start the patient on aggressive diuresis with IV Lasix 40 mg every 8 hours and monitor strict inputs and outputs with PureWick catheter and maintain daily weights and consult the patient's produce service team member and meat passer. We will hold direct oral anticoagulation in case recurrent thoracentesis or palliative drains are necessary. We will continue oral AV terrence blocking agents. We will start nebulized bronchodilators and await further Pulmonary input. The patient was recently hospitalized for congestive heart failure exacerbation and recurrent right malignant pleural effusion requiring therapeutic thoracentesis 1.25 L. 2. Acute on chronic diastolic congestive heart failure exacerbation. Continue IV loop diuresis. Monitor for atrial fibrillation, ventricular rate control. Consult Cardiology. 3. Stage IV lung adenocarcinoma with recurrent right-sided malignant pleural effusion. Consult Pulmonology for thoracentesis evaluation. Hold oral Eliquis at this time. The patient has chemo port in right chest wall and underwent first round of immunotherapy, Keytruda on 05/05/2019. 4. Chronic atrial fibrillation. Hold oral anticoagulation. Monitor for ventricular rate control. Recent hospitalization for congestive heart failure exacerbation and recurrent pleural effusion. 5. Hypertension, benign. Check a.m. labs. Deep venous thrombosis prophylaxis: The patient is on home oral anticoagulation. We will hold at this time in event of possible repeat thoracentesis. Code status: DNR/DNI. Discussed with the patient. Advance directives at bedside noted also stating this. The patient's medical power of employment law attorney is spouse, Ricky, who is also at beside and affirms code status. DISPOSITION: Inpatient admission. Anticipate greater than 3 midnight stay. Job ID: [id number] [facility]
[2019-05-10] MEDS: Metoprolol Tartrate 25 MG TAB PO SCH (20:55)
[2019-05-10] MEDS ORDERED: Guaifenesin DM 100-10/5 ML UDCUP PO PRN (21:03)
[2019-05-10] MEDS: Furosemide 40 MG/4 ML VIAL SLOW IVP SCH (21:05)
[2019-05-10] MEDS: traMADol HCl 50 MG TAB PO PRN (22:39)
[2019-05-11] MEDS: traMADol HCl 50 MG TAB PO PRN ×3 (04:39→18:08)
[2019-05-11 05:29] LABS: BUN (Urea Nitrogen) 15 mg/dL (9.8-20.1); Calc. Creatinine Clearance 77 mL/min (70-130); Calcium 9.3 mg/dL (7.8-10.44); Estimated GFR-MDRD Greater than 90; Glucose 158 mg/dL (83-110)
[2019-05-11 05:37] LABS: Anion Gap 12 mmol/L (10-20); Carbon Dioxide 36 mmol/L (23-31); Chloride 89 mmol/L (98-107); Potassium 4.3 mmol/L (3.5-5.1); Sodium 133 mmol/L (136-145)
[2019-05-11] MEDS: Furosemide 40 MG/4 ML VIAL SLOW IVP SCH (05:54)
[2019-05-11] MEDS: Levothyroxine Sodium 50 MCG TAB PO SCH (05:54)
[2019-05-11] MEDS: Potassium Chloride 10 MEQ TAB PO SCH (08:23)
[2019-05-11] MEDS: Digoxin 0.125 MG TAB PO SCH (08:23)
[2019-05-11] MEDS: Metoprolol Tartrate 25 MG TAB PO SCH ×2 (08:23→20:01)
[2019-05-11] MEDS: methylPREDNISolone Sod Succ/PF 125 MG/2 ML VIAL IVP SCH ×3 (13:17→23:43)
--- NOTE | 2019-05-11 13:51 | PDOC.FPRHP ---
- History of Present Illness Chief Complaint: SOB, edema History of Present Illness: Pt is an 78 F here for increased SOB and edema. She is currently on 3L today, which is her baseline at home. She says she is breathing much better today than on admission. - Allergies/Adverse Reactions Allergies Allergy/AdvReac Type Severity Reaction Status Date / Time No Known Allergies Allergy Verified 05/10/19 16:52 - Home Medications Medication Instructions Recorded Confirmed Type Cholecalciferol (Vitamin D3) 1 tab PO DAILY 04/09/19 05/10/19 History [Vitamin D3] Levothyroxine Sodium 1 tablet PO DAILY 04/09/19 05/10/19 History Gabapentin [Neurontin] 300 mg PO QPM cap 04/16/19 05/10/19 Rx Digoxin [Lanoxin] 0.125 mg PO DAILY 04/28/19 05/10/19 History Diltiazem HCl [Cardizem CD] 60 mg PO QID 04/28/19 05/10/19 History Apixaban [Eliquis] 2.5 mg PO BID #60 tab 04/30/19 05/10/19 Rx Furosemide 20 mg PO DAILY #30 tablet 04/30/19 05/10/19 Rx Metoprolol Tartrate [Lopressor] 25 mg PO BID #60 tab 04/30/19 05/10/19 Rx Potassium Chloride [Klor-Con 10] 10 meq PO DAILY #30 tab 04/30/19 05/10/19 Rx metFORMIN [Glucophage] 500 mg PO BID #60 tab 04/30/19 05/10/19 Rx - History PMHx: PSHx: FHx: Social: - Vital signs BP: [] HR: [] RR: [] Tmax: [] Pox: []% on [] Wt: [] FMR H&P: Results - Labs Result Diagrams: 05/10/19 10:40 05/11/19 04:29 Lab results: WBC 10.9 thou/uL (4.8-10.8) H 05/10/19 10:40 Hgb 13.0 g/dL (12.0-16.0) 05/10/19 10:40 Hct 40.0 % (36.0-47.0) 05/10/19 10:40 MCV 84.0 fL (78.0-98.0) 05/10/19 10:40 Plt Count 74 thou/uL (130-400) L 05/10/19 10:40 Neutrophils % 86.2 % (42.0-75.0) H 05/10/19 10:40 Sodium 133 mmol/L (136-145) L 05/11/19 04:29 Potassium 4.3 mmol/L (3.5-5.1) 05/11/19 04:29 Chloride 89 mmol/L (98-107) L 05/11/19 04:29 Carbon Dioxide 36 mmol/L (23-31) H 05/11/19 04:29 BUN 15 mg/dL (9.8-20.1) 05/11/19 04:29 Creatinine 0.57 mg/dL (0.6-1.1) L 05/11/19 04:29 Glucose 158 mg/dL (83-110) H 05/11/19 04:29 Calcium 9.3 mg/dL (7.8-10.44) 05/11/19 04:29 Total Bilirubin 0.3 mg/dL (0.2-1.2) 05/10/19 10:40 AST 16 U/L (5-34) 05/10/19 10:40 ALT 25 U/L (8-55) 05/10/19 10:40 Alkaline Phosphatase 110 U/L (40-110) 05/10/19 10:40 B-Natriuretic Peptide 116.6 pg/mL (0-100) H 05/10/19 10:40 Serum Total Protein 5.7 g/dL (6.0-8.3) L 05/10/19 10:40 Albumin 3.2 g/dL (3.4-4.8) L 05/10/19 10:40 FMR H&P: Upper Level - Plan Date/Time: 05/11/19 1349 I, [], have evaluated this patient and agree with findings/plan as outlined by internet systems administrator resident. Pertinent changes/additions are listed here.
--- NOTE | 2019-05-11 13:53 | PDOC.FM ---
- Subjective Subjective: Pt is an 78 F who was seen earlier this month for a CHF exacerbation. She is currently on 3L of O2, which she is on baseline at home. She says her shortness of breath is much improved. She says she has noticed an increase in her swelling of her legs over the past week. - Objective MAR Reviewed: Yes Vital Signs & Weight: Vital Signs (12 hours) Temp Pulse Pulse Resp BP BP Pulse Ox 05/11/19 12:00 97.4 F L 61 17 101/57 L 97 05/11/19 11:38 61 101/57 L 05/11/19 11:15 96 05/11/19 11:10 53 L 20 96 05/11/19 08:23 93 05/11/19 08:00 98 05/11/19 07:35 97.3 F L 93 20 119/61 98 05/11/19 04:04 80 128/60 97 05/11/19 03:54 97.4 F L 72 16 96/56 L 97 05/11/19 02:00 77 118/58 L 96 Pulse Ox 05/11/19 12:00 05/11/19 11:38 97 05/11/19 11:15 05/11/19 11:10 05/11/19 08:23 05/11/19 08:00 05/11/19 07:35 05/11/19 04:04 05/11/19 03:54 05/11/19 02:00 Weight Weight 62.324 kg I&O: 05/10/19 05/11/19 05/12/19 06:59 06:59 06:59 Intake Total 450 Output Total 150 Balance 300 Result Diagrams: 05/10/19 10:40 05/11/19 04:29 Phys Exam - Physical Examination Constitutional: NAD HEENT: PERRLA, sclera anicteric, oral pharynx no lesions Neck: no nodes, supple Expiratory wheezing Cardiovascular: RRR, no significant murmur Gastrointestinal: soft, non-tender, positive bowel sounds 2+ pitting edema present Neurological: normal sensation, moves all 4 limbs Lymphatic: no nodes Psychiatric: normal affect Deviation from normal: Redness on her ankles that has been present for months Dx/Plan (1) Acute respiratory failure with hypoxia Code(s): J96.01 - ACUTE RESPIRATORY FAILURE WITH HYPOXIA Status: Acute (2) CHF exacerbation Code(s): I50.9 - HEART FAILURE, UNSPECIFIED Status: Acute (3) COPD exacerbation Code(s): J44.1 - CHRONIC OBSTRUCTIVE PULMONARY DISEASE W (ACUTE) EXACERBATION Status: Acute (4) Adenocarcinoma Code(s): C80.1 - MALIGNANT (PRIMARY) NEOPLASM, UNSPECIFIED Status: Chronic (5) Atrial fibrillation, persistent Code(s): I48.1 - PERSISTENT ATRIAL FIBRILLATION * DO NOT USE * Status: Chronic - Plan Plan: Pt is an 78 yo F with chronic hypoxic respiratory failures, COPD, CHF, and Stage IV Adenocarcinoma of the lung who presents for Acute Hypoxic Respiratory failure. 1. Acute on Chronic Hypoxic Respiratory Failure 2/2 CHF Exacerbation O2: 3L, baseline 3L * CXR: Stable abnormal pleural and parenchymal opacity in R middle and lower chest * Currently on 40 mg of IV Lasix Q8H * Receiving KCl * Lung exam had no crackles but 2+ pitting edema in the legs * Pulm & Cardiology consulted 2. COPD End expiratory wheeze on exam * Currently on Duonebs Q4 prn * Sating well on 3L 3. Stage IV Adenocarcinoma of the Lung Currently on immunotherapy 4. Afib * Eliquis was held for possible thoracentesis * Will await pulms visit today and restart if no thoracentesis 5. HTN BP: 101/57 * Currently on home meds 6. Hypothyroid * On home levo Code Status: DNR Diet: HHLSo Activity: Ambulate with Assist DVT PPx: None, will restart eliquis pending thora PCP: CC, bounce back Dispo: Tele inpt, consulted case management. Will await consults recs and d/c. Addendum - Attending - Attending Attestation Date/Time: 05/11/19 1043 I personally evaluated the patient and discussed the management with Dr. Samano. I agree with the History, Examination, Assessment and Plan documented above with any addition or exceptions noted below. Appreciate Dr Lujan's recs. Team will discuss with him arranging chest port for persistent pleural effusion.
--- NOTE | 2019-05-11 13:56 | CON ---
DATE OF CONSULTATION: HISTORY OF PRESENT ILLNESS: Tasha Tellez is an 78-year-old female, who is well known to me, who has metastatic adenocarcinoma with complete opacification of the right lower lung with endobronchial disease and recurrent pleural effusion adenocarcinoma. She presents yesterday with shortness of breath, cough. No fever or chills. She is found to be in atrial fibrillation, which is a chronic problem. She has no evidence of congestive heart failure. BNP is normal. Echo in the past showed a normal EF. X-ray shows the right lung atelectatic and pleural effusion. She has had recurrent effusion with multiple thoracentesis all positive for adenocarcinoma. She is weak this morning. She is short of breath. She feels poorly. PAST MEDICAL HISTORY: Chronic atrial fibrillation, normal EF, COPD, SVT. PAST SURGICAL HISTORY: Outlined spinal surgery, tubal ligation, pacemaker, MediPort, gallbladder, recent chemotherapy, recent MediPort, and former smoker. MEDICATIONS: Well outlined; 1. Gabapentin 300. 2. Cardizem CD 60. 3. Digoxin 0.125. 4. Eliquis 2.5. 5. Synthroid. 6. Lasix. 7. Metformin. 8. Potassium. ALLERGIES: NONE. REVIEW OF SYSTEMS: Unremarkable. The patient is a DNR. PHYSICAL EXAMINATION: VITAL SIGNS: Temperature 97, pulse 93, saturations are 90% on 3 L, and blood pressure 119/61. CHEST: Decreased breath sounds, right lung. Left lung, unremarkable. CARDIAC: Atrial fibrillation. ABDOMEN: Soft. LABORATORY DATA: Lytes are normal. White count 10,000. IMPRESSION: 1. Right pleural effusion congestive heart failure secondary to metastatic adenocarcinoma. 2. Chronic obstructive pulmonary disease. 3. Supraventricular tachycardia. 4. Severe deconditioning. PLAN: Discontinue Lasix. Steroids and neb treatment are initiated. Low-flow O2. Consider putting a pleural catheter for drainage purposes at home. Consultation note, 70 minutes, 50% direct patient care. Job ID: [id number]
[2019-05-11] MEDS ORDERED: Ondansetron ORAL SOLN. 4 MG/5 ML UDCUP PO PRN (15:13)
[2019-05-11] MEDS ORDERED: Ondansetron PF 4 MG/2 ML Vial IVP PRN (15:13)
--- NOTE | 2019-05-11 16:21 | CON ---
DATE OF CONSULTATION: Please see recent full consultation for details. HISTORY OF PRESENT ILLNESS: Briefly, Ms. Tellez was readmitted for recurrent shortness of breath and right-sided pleural effusion. She states she began chemotherapy for adenocarcinoma this week. She does have a history of metastatic adenocarcinoma with most recent pleural fluid suggesting adenocarcinoma. PHYSICAL EXAMINATION: VITAL SIGNS: Blood pressure 101/57, pulse 61, temperature 97.4. LUNGS: Decreased breath sounds on right versus left. HEART: Irregularly irregular. ABDOMEN: Soft, nontender, nondistended. EXTREMITIES: No edema. IMPRESSION: 1. Recurrent pleural effusion. 2. Metastatic adenocarcinoma. 3. Atrial fibrillation. RECOMMENDATION: Discussed case with Dr. Terrell Lujan. I could certainly proceed with cardioversion . Her platelet count has improved. We both feel though that this is unlikely to improve on her symptoms. She would need to be on anticoagulation therapy for at least 3 weeks prior to conversion. We will also need to be on amiodarone therapy. She has failed other medications in the past. We will get an opinion from Dr. Michelle on prognosis. Her heart rate after pacemaker placement appears to have been stable without issues with atrial fibrillation with rapid ventricular response. Job ID: [id number]
--- NOTE | 2019-05-11 17:20 | CON ---
DATE OF CONSULTATION: HISTORY OF PRESENT ILLNESS: This is an unfortunate 78-year-old female, who has stage IV right lower lobe lung cancer, diagnosed in January of this year. She has had requirement for 2 thoracenteses, the most recent 1 about 2 weeks ago, where a little over a liter of fluid was removed. She was in rehab and then home and then brought to the ER again yesterday with dyspnea. Additional pertinent issues are that the patient has oxygen-dependent COPD at home with her stating her lung function several years ago was about 37%. She has a 14-cnoh-dosc history of smoking, but none in 20 years. She was also noted to be in atrial fibrillation with RVR and was shocked by Dr. Wilson only to become bradycardic for several days, ultimately getting a pacemaker placed. The patient has had edematous lower extremities with the diagnosis of congestive heart failure being made, although her BNP is normal at this admission. Her chest x-ray on admission showed opacification of the lower right hemithorax to a lesser degree than pre-thoracentesis 2 weeks ago and slightly more than post-thoracentesis. CT scan from January demonstrated marked opacification of the right lower lobe with what appeared to be infiltrate, possibly tumor infiltrates. PAST SURGICAL HISTORY: Includes: 1. The previously noted pacemaker placement. 2. Recent MediPort placement. 3. Back surgery. 4. Cholecystectomy. REVIEW OF SYSTEMS: The patient is quite weak and not able to stand on her own. She states that she has pain in her sacral area and the nurse states that there is a grade 2 decubitus there. PHYSICAL EXAMINATION: GENERAL: On examination, the patient is cooperative, but slow to respond to questions. NECK: No adenopathy. LUNGS: Actually have breath sounds present bilaterally with no wheezes. VITAL SIGNS: She does have nasal cannula in place with an O2 saturation of 96%. Her blood pressure is 100/60 and her heart rate is 60 and is a paced ventricular rhythm on EKG. ABDOMEN: Soft and nontender. EXTREMITIES: She has 2 to 3+ pitting edema on both lower extremities, and as such, pedal pulses cannot be assessed. ASSESSMENT AND PLAN: I have discussed the situation with the patient and then by phone with the . I have offered to put a PleurX catheter, going over the risks of infection and catheter malfunction as the main risk. She was on Eliquis for her atrial fibrillation, however, this has not been taken for about 36 hours. The states that Dr. Lujan did not think there was enough fluid to cause her pulmonary symptoms, and as such, he is hesitant to proceed with any intervention at this time. I will make her n.p.o. in case after discussion with Dr. Lujan tomorrow. He wishes to proceed. Job ID: [id number]
[2019-05-11] MEDS: Acetaminophen 325 MG TAB PO PRN (20:00)
[2019-05-11] MEDS: Gabapentin 300 MG CAP PO SCH (20:01)
[2019-05-12] MEDS: methylPREDNISolone Sod Succ/PF 125 MG/2 ML VIAL IVP SCH ×2 (05:04→20:43)
[2019-05-12] MEDS: Levothyroxine Sodium 50 MCG TAB PO SCH (05:04)
--- NOTE | 2019-05-12 06:21 | PDOC.FM ---
- Subjective Subjective: She is feeling well this morning. She has some pain in her L foot with swelling. - Objective MAR Reviewed: Yes Vital Signs & Weight: Vital Signs (12 hours) Temp Pulse Resp BP Pulse Ox 05/12/19 03:43 97.7 F 95 18 104/58 L 95 05/11/19 20:18 62 18 94 L 05/11/19 20:00 97.5 F L 82 18 123/61 92 L Weight Admit Weight 62.142 kg Weight 62.324 kg I&O: 05/10/19 05/11/19 05/12/19 06:59 06:59 06:59 Intake Total 450 480 Output Total 150 600 Balance 300 -120 Result Diagrams: 05/10/19 10:40 05/11/19 04:29 Phys Exam - Physical Examination Constitutional: NAD HEENT: PERRLA, moist MMs Neck: no nodes Respiratory: clear to auscultation bilateral Cardiovascular: RRR, no significant murmur Gastrointestinal: soft, non-tender, positive bowel sounds Musculoskeletal: pulses present 1+ pitting edema Neurological: moves all 4 limbs Psychiatric: normal affect, A&O x 3 Skin: no rash Dx/Plan (1) Acute respiratory failure with hypoxia Code(s): J96.01 - ACUTE RESPIRATORY FAILURE WITH HYPOXIA Status: Acute (2) CHF exacerbation Code(s): I50.9 - HEART FAILURE, UNSPECIFIED Status: Acute (3) COPD exacerbation Code(s): J44.1 - CHRONIC OBSTRUCTIVE PULMONARY DISEASE W (ACUTE) EXACERBATION Status: Acute (4) Adenocarcinoma Code(s): C80.1 - MALIGNANT (PRIMARY) NEOPLASM, UNSPECIFIED Status: Chronic (5) Atrial fibrillation, persistent Code(s): I48.1 - PERSISTENT ATRIAL FIBRILLATION * DO NOT USE * Status: Chronic - Plan Plan: Pt is an 78 yo F with chronic hypoxic respiratory failures, COPD, CHF, and Stage IV Adenocarcinoma of the lung who presents for Acute Hypoxic Respiratory failure. 1. Acute on Chronic Hypoxic Respiratory Failure 2/2 CHF Exacerbation O2: 3L, baseline 3L * CXR: Stable abnormal pleural and parenchymal opacity in R middle and lower chest * Lasix D/c 05/11 * Receiving KCl * Lung exam had no crackles but 2+ pitting edema in the legs * Pulm consulted, appreciate recs. Recommend pleural catheter placement, so CV surg consulted & made pt NPO last night & will discuss with pulm this am. 2. COPD End expiratory wheeze on exam * Currently on Duonebs Q4 prn * Sating well on 3L 3. Stage IV Adenocarcinoma of the Lung Currently on immunotherapy 4. Afib * Eliquis was held for possible thoracentesis/catheter placement. * Will await pulms recs as far as catheter placement. * Cardiology consulted, appreciate recs. Cardioversion after 3 wks of anticoagulation & Amio, will discuss with Miguel Angel prognosis. 5. HTN BP: 101/57 * Currently on home meds 6. Hypothyroid * On home levo Code Status: DNR Diet: NPO Activity: Ambulate with Assist DVT PPx: SCDs PCP: CC, bounce back Dispo: Tele inpt, consulted case management. Will await consults recs. Addendum - Attending - Attending Attestation Date/Time: 05/12/19 6900 I personally evaluated the patient and discussed the management with the team. I agree with the History, Examination, Assessment and Plan documented above with any addition or exceptions noted below. Patient well known to me with recurrent malignant pleural effusion who is symptomatic today. Await discussion between consultants.
--- NOTE | 2019-05-12 08:09 | RAD ---
Exam: Chest one view HISTORY:Follow-up right pleural effusion Comparison: 05/10/2019 FINDINGS: Cardiac silhouette:Right heart borders partially obscured. There is presumed upper normal cardiac sudarshan houette. Aorta: Atherosclerosis. Lines and tubes: Stable right-sided Mediport catheter. Stable left-sided transvenous pacemaker. Pulmonary vessels: Normal Costophrenic angles: New effusion left lung base. Worsening right-sided pleural effusion. LUNGS: Parenchymal changes suggesting atelectasis, pneumonia or aspiration. Pneumothorax: None Osseous abnormalities: None IMPRESSION: 1. Presumed congestive heart failure. 2. Worsening bilateral pleural effusions with adjacent parenchymal changes. Superimposed pneumonia an d/or aspiration cannot be excluded.
[2019-05-12] MEDS: Digoxin 0.125 MG TAB PO SCH (09:11)
[2019-05-12] MEDS: Potassium Chloride 10 MEQ TAB PO SCH (09:12)
[2019-05-12] MEDS: Metoprolol Tartrate 25 MG TAB PO SCH ×2 (09:12→20:42)
--- NOTE | 2019-05-12 10:31 | PRG ---
DATE OF SERVICE: 05/12/2019 OBJECTIVE: VITAL SIGNS: This morning; temperature 97, pulse 82,o2 sat94% on 3 L, and blood pressure 104/58. still veryshort of breath, but no coughing. CHEST: Decreased breath sounds in right lung. Left lung unremarkable. CARDIAC: Normal S1 and S2. No gallop. ABDOMEN: No mass. ASSESSMENT: 1. Adenocarcinoma of right pleural effusion. 2. Supraventricular tachycardia. PLAN: X-ray today may show slightly increasing pleural effusion. Continue present cardiac care. Continue supportive care. Continue neb treatments. Prognosis guarded. We will discuss and follow. Job ID: [id number] MTDD
--- NOTE | 2019-05-12 17:17 | PRG ---
DATE OF SERVICE: 05/12/2019 SUBJECTIVE: Ms. Tellez appears to be in good spirits today. No current complaints. OBJECTIVE: VITAL SIGNS: Blood pressure 124/57, pulse 61, temperature 97.5. LUNGS: Decreased breath sounds on right versus left. HEART: Irregularly irregular, but well controlled. ABDOMEN: Soft, nontender, nondistended. EXTREMITIES: No edema. PERTINENT LABORATORY DATA: Hemoglobin 13.0. Creatinine 0.57. BNP of 116. IMPRESSION: 1. Malignant pleural effusion. 2. Atrial fibrillation. 3. Metastatic adenocarcinoma of the lung. RECOMMENDATIONS: From a CV standpoint, Ms. Tellez is well controlled rate-mcdonald. Her effusion may be secondary to atrial fibrillation, but less likely. It is most likely related to her malignant pleural effusion. Decisions are yet to be made on proceeding with pleurodesis. The is unsure. This is between Dr. Salinas and . Otherwise, from my standpoint, I have no further recommendations. We will continue digoxin and diltiazem in addition to low-dose p.o. Lasix. If any further issues, please re-consult. Job ID: [id number]
[2019-05-12] MEDS: Gabapentin 300 MG CAP PO SCH (20:43)
[2019-05-12] MEDS ORDERED: Dextrose 5% in Water 1,000 ML IV PRN (21:30)
[2019-05-12] MEDS ORDERED: Dextrose 50% Abboject 50 ML SYRINGE SLOW IVP PRN (21:30)
[2019-05-12] MEDS: HumaLOG 300 UNITS/3 ML VIAL SC PRN (21:42)
[2019-05-13] MEDS: Levothyroxine Sodium 50 MCG TAB PO SCH (05:11)
--- NOTE | 2019-05-13 06:16 | PDOC.FM ---
- Subjective Subjective: She says she feels very tired this morning. Otherwise she has no complaints. - Objective MAR Reviewed: Yes Vital Signs & Weight: Vital Signs (12 hours) Temp Pulse Resp BP Pulse Ox 05/13/19 03:50 97.5 F L 77 16 116/63 95 05/12/19 23:50 73 112/59 L 05/12/19 19:35 93 L 05/12/19 19:05 97.3 F L 85 24 H 117/57 L 92 L 05/12/19 19:02 84 20 94 L Weight Admit Weight 62.142 kg Weight 59.738 kg I&O: 05/11/19 05/12/19 05/13/19 06:59 06:59 06:59 Intake Total 450 480 240 Output Total 150 600 275 Balance 300 -120 -35 Result Diagrams: 05/10/19 10:40 05/11/19 04:29 Phys Exam - Physical Examination Constitutional: NAD HEENT: PERRLA, moist MMs, oral pharynx no lesions Neck: supple, full ROM CTA on L side, diminished breath sounds on R Cardiovascular: no significant murmur regular rate, irregular rhythm Gastrointestinal: soft, non-tender, positive bowel sounds Musculoskeletal: pulses present 2+ pitting edema Neurological: moves all 4 limbs Psychiatric: normal affect Skin: no rash Dx/Plan (1) Acute respiratory failure with hypoxia Code(s): J96.01 - ACUTE RESPIRATORY FAILURE WITH HYPOXIA Status: Acute (2) CHF exacerbation Code(s): I50.9 - HEART FAILURE, UNSPECIFIED Status: Acute (3) COPD exacerbation Code(s): J44.1 - CHRONIC OBSTRUCTIVE PULMONARY DISEASE W (ACUTE) EXACERBATION Status: Acute (4) Adenocarcinoma Code(s): C80.1 - MALIGNANT (PRIMARY) NEOPLASM, UNSPECIFIED Status: Chronic (5) Atrial fibrillation, persistent Code(s): I48.1 - PERSISTENT ATRIAL FIBRILLATION * DO NOT USE * Status: Chronic - Plan Plan: Pt is an 78 yo F with chronic hypoxic respiratory failures, COPD, CHF, and Stage IV Adenocarcinoma of the lung who presents for Acute Hypoxic Respiratory failure. 1. Acute on Chronic Hypoxic Respiratory Failure 2/2 CHF Exacerbation O2: 4L, baseline 3L * CXR: Stable abnormal pleural and parenchymal opacity in R middle and lower chest * Lasix 20 PO * Receiving KCl * Lung exam had no crackles but 2+ pitting edema in the legs * Pulm consulted, appreciate recs. Recommend pleural catheter placement, so CV surg consulted. Awaiting decision by pt & . * Repeat CXR: Presumed CHF, worsening pleural effusion, superimposed PNA or aspiration can't be excluded * CT ordered this morning. Read not back 2. COPD End expiratory wheeze on exam * Currently on Duonebs Q4 prn * Increased to 4L this morning 3. Stage IV Adenocarcinoma of the Lung Currently on immunotherapy 4. Afib * Eliquis was held for possible thoracentesis/catheter placement. * Will await pulms recs as far as catheter placement. * Cardiology consulted, appreciate recs. Will hold off on cardioversion. 5. HTN BP: 112/59 * Currently on home meds 6. Hypothyroid * On home levo Code Status: DNR Diet: CC Activity: Ambulate with Assist DVT PPx: SCDs PCP: CC, bounce back Dispo: Tele inpt, consulted case management. Will await decision about catheter placement. Addendum - Attending - Attending Attestation Date/Time: 05/13/19 9891 I personally evaluated the patient and discussed the management with the team. I agree with the History, Examination, Assessment and Plan documented above with any addition or exceptions noted below. Discussed with patient and option of indwelling pleural cath and they are interested due to prior improvement with therapeutic thora. Await specialists decision.
--- NOTE | 2019-05-13 09:18 | PRG ---
DATE OF SERVICE: 05/13/2019 SUBJECTIVE: This morning, she looks better, more awake, more responsive, less sleepy, less lethargic. OBJECTIVE: VITAL SIGNS: Temperature 97, pulse 77, respirations 16, sats are 96% on room air, blood pressure 160/63. CHEST: Decreased breath sounds in right lung. Left lung unremarkable. CARDIAC: Normal S1, S2. No gallops. ABDOMEN: Soft. DIAGNOSTIC DATA: CT shows more pleural effusion today with a dense right middle lobe mass, cancer. ASSESSMENT: 1. Chronic obstructive pulmonary disease. 2. Recurrent right pleural effusion. 3. Metastatic adenocarcinoma. 4. Severe deconditioning. 5. Stasis edema. 6. Normal EF. PLAN: Discussed with Dr. Salinas to see whether it is feasible to put a tunneled catheter. Otherwise, she can be discharged home on present medication any time. Job ID: [id number]
[2019-05-13] MEDS: Digoxin 0.125 MG TAB PO SCH (10:05)
[2019-05-13] MEDS: Potassium Chloride 10 MEQ TAB PO SCH (10:06)
[2019-05-13] MEDS: Metoprolol Tartrate 25 MG TAB PO SCH ×2 (10:06→21:15)
[2019-05-13] MEDS: Furosemide 20 MG TAB PO SCH (10:06)
--- NOTE | 2019-05-13 10:37 | CT ---
CT CHEST WITHOUT CONTRAST: HISTORY: Pleural effusion, shortness of breath, [id number] right lung cancer. COMPARISON: Contrast-enhanced CT scan of 03/17/2019. FINDINGS: Absence of IV contrast reduces the sensitivity of the exam, particularly for evaluation of mediastina l, hilar, and vascular structures. Mediastinal and right hilar lymphadenopathy is again seen measuring up to 14 mm. Soft tissue density in the right hilar region with atelectatic change in the right lung base right lower lobe is again n oted. There has been interval increase in size of the right pleural effusion. A tiny left pleural e ffusion is also present. There are patchy ground-glass opacities in the visualized right lung olivo . Focal ground-glass density in the left upper lobe is stable. There are degenerative changes in the spine. IMPRESSION: 1. Interval increase in size of the right pleural effusion and mild improvement in the mediastinal l ymphadenopathy since 03/17/2019. 2. No tiny left pleural effusion. POS: SAMANTHA
[2019-05-13] MEDS: methylPREDNISolone Sod Succ/PF 125 MG/2 ML VIAL IVP SCH (10:45)
[2019-05-13] MEDS: HumaLOG 300 UNITS/3 ML VIAL SC PRN ×2 (11:49→18:32)
--- NOTE | 2019-05-13 15:08 | RAD ---
EXAM: XR Sacrum and Coccyx STANDARD PROVIDED CLINICAL HISTORY: Pressure ulcer, pain in region of coccyx. COMPARISON: None FINDINGS: There is osteopenia. There is lucency and irregularity involving the lowermost sacral segment, and th e cortex appears absent in this region predominantly posteriorly but to a lesser extent anteriorly. In the correct clinical scenario, findings could be related to osteomyelitis. Further evaluation with MRI is recommended. No fracture is seen. Multilevel degenerative changes are seen in the lower lumbar spine. Sacroiliac joints are symmetric in appearance bilaterally. Left hip osteoarthritis is n oted. Dense vascular calcifications are seen in the abdominal aorta and involving the iliac arteries. IMPRESSION: Lucency and irregularity involving the lowermost sacral segment which could be related to osteomyelit is in the correct clinical scenario. MRI pelvis is recommended for further evaluation with and without IV contrast.
[2019-05-13] MEDS: Gabapentin 300 MG CAP PO SCH (21:15)
[2019-05-14 04:28] LABS: Hemoglobin 12.2 g/dL (12.0-16.0); Lymphocytes 2 % (21-51); MDiff Complete? YES; Mean Corpuscular HGB CONC 32.3 g/dL (32.0-36.0); Mean Corpuscular Hemoglobin 27.4 pg (27.0-31.0); Mean Corpuscular Volume 84.8 fL (78.0-98.0); Mean Platelet Volume 11.6 fL (7.4-10.4); Monocytes 5 % (0-10); Neutrophil 93 % (42-75); Platelet Count 67 thou/uL (130-400); Platelet Morphology Comment Appears Decreased; RBC Distribution Width 14.5 % (11.5-14.5); Red Blood Cell (RBC) Count 4.46 mill/uL (4.20-5.40); White Blood Cell (WBC) Count 16.5 thou/uL (4.8-10.8)
[2019-05-14] MEDS: Digoxin 0.125 MG TAB PO SCH (05:12)
[2019-05-14] MEDS: Levothyroxine Sodium 50 MCG TAB PO SCH (05:12)
[2019-05-14] MEDS: Potassium Chloride 10 MEQ TAB PO SCH (05:12)
[2019-05-14] MEDS: Metoprolol Tartrate 25 MG TAB PO SCH ×2 (05:12→20:52)
[2019-05-14] MEDS: Furosemide 20 MG TAB PO SCH (05:12)
--- NOTE | 2019-05-14 06:10 | PDOC.FM ---
- Subjective Subjective: She is sleeping still from sedation this morning. She just returned from recovery. - Objective MAR Reviewed: Yes Vital Signs & Weight: Vital Signs (12 hours) Temp Pulse Resp BP Pulse Ox 05/14/19 05:12 81 05/14/19 03:58 98.1 F 81 24 H 123/70 97 05/13/19 19:10 97.8 F 88 20 105/65 97 Weight Admit Weight 62.142 kg Weight 59.738 kg I&O: 05/12/19 05/13/19 05/14/19 06:59 06:59 06:59 Intake Total 480 240 240 Output Total 600 275 750 Balance -120 -35 -510 Result Diagrams: 05/14/19 03:25 05/11/19 04:29 Phys Exam - Physical Examination Constitutional: NAD HEENT: moist MMs Neck: no nodes, supple Crackles on the right side but breath sounds present Cardiovascular: no significant murmur Regular rate, irregular rhythm Gastrointestinal: soft, positive bowel sounds Musculoskeletal: pulses present 2+ pitting edema, slightly improved from yesterday Neurological: normal sensation, moves all 4 limbs Lymphatic: no nodes Psychiatric: normal affect Skin: no rash Dx/Plan (1) Acute respiratory failure with hypoxia Code(s): J96.01 - ACUTE RESPIRATORY FAILURE WITH HYPOXIA Status: Acute (2) CHF exacerbation Code(s): I50.9 - HEART FAILURE, UNSPECIFIED Status: Acute (3) COPD exacerbation Code(s): J44.1 - CHRONIC OBSTRUCTIVE PULMONARY DISEASE W (ACUTE) EXACERBATION Status: Acute (4) Adenocarcinoma Code(s): C80.1 - MALIGNANT (PRIMARY) NEOPLASM, UNSPECIFIED Status: Chronic (5) Atrial fibrillation, persistent Code(s): I48.1 - PERSISTENT ATRIAL FIBRILLATION * DO NOT USE * Status: Chronic - Plan Plan: Pt is an 78 yo F with chronic hypoxic respiratory failures, COPD, CHF, and Stage IV Adenocarcinoma of the lung who presents for Acute Hypoxic Respiratory failure. 1. Acute on Chronic Hypoxic Respiratory Failure 2/2 CHF Exacerbation O2: 3-4L, baseline 3L * CXR: Stable abnormal pleural and parenchymal opacity in R middle and lower chest * Lasix 20 PO * Receiving KCl * Lung exam had no crackles but 2+ pitting edema in the legs * Pulm consulted, appreciate recs. Recommend pleural catheter placement, so CV surg consulted. * Catheter placed this morning and 1300 mL removed * Repeat CXR: Presumed CHF, worsening pleural effusion, superimposed PNA or aspiration can't be excluded * CT: Increase in R pleural effusion with Mild improvement in LAD 2. COPD End expiratory wheeze on exam * Currently on Duonebs Q4 prn * Between 3-4L this morning 3. Stage IV Adenocarcinoma of the Lung Currently on immunotherapy 4. Afib * Eliquis was held for possible thoracentesis/catheter placement. * Will await pulms recs as far as catheter placement. * Cardiology consulted, appreciate recs. Will hold off on cardioversion. Signed off 5. HTN BP: 112/59 * Currently on home meds 6. Hypothyroid * On home levo 7. Pressure Ulcer on Sacrum Stage II vs Stage IV * Seen and evaluated by wound care * Pain in the sacral area yesterday * XR: Lucency & Irregularity of lowest sacral segment, could be related to osteo, MRI recommended * MRI unable to be preformed due to recent placement of pacemaker * ESR: 7 & CRP: < 0.05 * WBC: 10.9 > 16.5 Code Status: DNR Diet: CC Activity: Ambulate with Assist DVT PPx: SCDs PCP: CC, bounce back Dispo: Tele inpt, consulted case management. Rehab screen placed. Addendum - Attending - Attending Attestation Date/Time: 05/14/19 9714 I personally evaluated the patient and discussed the management with the team. I agree with the History, Examination, Assessment and Plan documented above with any addition or exceptions noted below. Patient is fatigued, but feels like her breathing has improved. No pain at the tube site and her sacrum isn't hurting. Will discuss XR finding with onc, dispo pending that and CTSx/Pulm.
[2019-05-14] MEDS ORDERED: Fentanyl 100 MCG/2 ML VIAL ONE (06:32)
[2019-05-14] MEDS ORDERED: Midazolam HCl 2 mg/2 ml Vial ONE (06:32)
[2019-05-14] MEDS ORDERED: predniSONE 20 MG TAB PO SCH ×2 (08:00→10:15)
--- NOTE | 2019-05-14 08:37 | RAD ---
EXAM: CHEST ONE VIEW HISTORY: Post Pleurx catheter placement. COMPARISON: 05/12/2019 FINDINGS: A right subclavian Mediport catheter remains in place. Dual lead left subclavian cardiac pacemaking d evice is noted in place. A thoracostomy tube overlies the right chest likely due to patient's Pleurx catheter. The tip overlies the right midlung zone. A moderate size right pleural effusion and atelectasis is present, but the pleural effusion has decreased compared to prior exam. There are teletypesetter monitor leads overlying the left chest. There is suggestion of a nodular density overlying th e left midlung zone which was not seen on study of 05/12/2019, but this is probably due to overlying artifact. There is a tiny left pleural effusion and atelectasis. The right cardiac border i s obscured. Pulmonary vasculature is within normal limits.. IMPRESSION: 1. Right-sided thoracostomy tube noted in place likely related to patient's recent history of placeme nt of a Pleurx catheter. There has been decrease in right pleural effusion, but a moderate size right pleural effusion persists. 2. Tiny left pleural effusion. 3. Nodular density projecting over left midlung zone. This is likely related to overlying artifact, a nd this was not seen on recent study of 05/12/2019.
--- NOTE | 2019-05-14 10:04 | PRG ---
DATE OF SERVICE: 05/14/2019 SUBJECTIVE: This morning, the patient is awake, alert, and responsive. She is better. She had a large volume of fluid drained, 1300 mL and has a small bore chest tube inserted, pleural catheter tunneled in. OBJECTIVE: VITAL SIGNS: Temperature 98.4_, pulse 77, respiratory rate 16__ saturations are 96% on 2 L, and blood pressure 115/56. CHEST: Decreased breath sounds. No wheezing. CARDIAC: Normal S1 and S2. No gallops. ABDOMEN: No mass. LABORATORY DATA: White count 48683. Blood sugar is elevated. IMPRESSION: 1. Metastatic adenocarcinoma. 2. Chronic obstructive pulmonary disease. 3. Supraventricular tachycardia. PLAN: Disposition home hopefully in the next 24 to 48 hours. I have given her a prescription for DuoNeb. She already has oxygen at home. A week of prednisone. Job ID: [id number] MTDD
[2019-05-14] MEDS: traMADol HCl 50 MG TAB PO PRN ×2 (10:19→18:24)
[2019-05-14 13:34] VITALS: BMI 24.0
--- NOTE | 2019-05-14 13:57 | OP ---
DATE OF PROCEDURE: 05/14/2019 PREOPERATIVE DIAGNOSIS: Malignant right effusion, recurrent. PROCEDURE PERFORMED: Right PleurX catheter. ANESTHESIA: Sedation with 1% lidocaine. DESCRIPTION OF PROCEDURE: After prepping and draping, lidocaine was infiltrated in the right posterolateral chest wall. A Finder needle was used to aspirate pleural fluid, and then an Angiocath was placed. A wire was then advanced, although it did not go in more than about 6 inches. Following this, a separate counter incision was made after lidocaine infiltration, and the catheter was then passed through its tunnel. It was trimmed to a length and then passed through serial dilators, being passed over the wire, and then the peel-away sheath introduced and the catheter advanced through this. Following this, about 1400 mL of fluid was returned before it started becoming bloody and was discontinued. Following this, the wound was closed, dressed. The patient is to be taken to recovery room. No anticoagulation for the next 2 weeks. Job ID: [id number]
[2019-05-14] MEDS ORDERED: Morphine 2 MG/ML SYRINGE SLOW IVP SCH (20:15)
[2019-05-14] MEDS: Gabapentin 300 MG CAP PO SCH (20:52)
[2019-05-15] MEDS: Levothyroxine Sodium 50 MCG TAB PO SCH (06:01)
[2019-05-15] MEDS: traMADol HCl 50 MG TAB PO PRN ×3 (06:01→18:34)
[2019-05-15 06:02] LABS: BUN (Urea Nitrogen) 25 mg/dL (9.8-20.1); Calc. Creatinine Clearance 68 mL/min (70-130); Calcium 9.6 mg/dL (7.8-10.44); Estimated GFR-MDRD Greater than 90; Glucose 224 mg/dL (83-110)
[2019-05-15 06:11] LABS: Anion Gap 11 mmol/L (10-20); Carbon Dioxide 39 mmol/L (23-31); Chloride 86 mmol/L (98-107); Potassium 4.9 mmol/L (3.5-5.1); Sodium 131 mmol/L (136-145)
[2019-05-15 06:34] LABS: Hemoglobin 12.4 g/dL (12.0-16.0); Mean Corpuscular HGB CONC 31.8 g/dL (32.0-36.0); Mean Corpuscular Hemoglobin 26.9 pg (27.0-31.0); Mean Corpuscular Volume 84.5 fL (78.0-98.0); Mean Platelet Volume 12.5 fL (7.4-10.4); Platelet Count 55 thou/uL (130-400); RBC Distribution Width 14.5 % (11.5-14.5); Red Blood Cell (RBC) Count 4.63 mill/uL (4.20-5.40); White Blood Cell (WBC) Count 14.6 thou/uL (4.8-10.8)
--- NOTE | 2019-05-15 06:43 | PDOC.FM ---
- Subjective Subjective: She says she is feeling much better, but she is still really tired. I spoke to her about going home and she is unsure if she can manage with her and her being the only ones at home. She had a BM yesterday. - Objective MAR Reviewed: Yes Vital Signs & Weight: Vital Signs (12 hours) Temp Pulse Resp BP BP Pulse Ox 05/15/19 03:00 98.1 F 80 18 103/59 L 92 L 05/14/19 23:54 98 114/62 05/14/19 19:30 98 Weight Admit Weight 62.142 kg Weight 59.738 kg I&O: 05/13/19 05/14/19 05/15/19 06:59 06:59 06:59 Intake Total 240 240 670 Output Total 275 750 Balance -35 -510 670 Result Diagrams: 05/15/19 04:12 05/15/19 04:12 Phys Exam - Physical Examination Constitutional: NAD HEENT: PERRLA, moist MMs, sclera anicteric Neck: supple, full ROM Expiratory wheeze on RUL, decreased on RLL, CTA on L Cardiovascular: RRR, no significant murmur Gastrointestinal: soft, non-tender, positive bowel sounds 2+ pitting edema Neurological: moves all 4 limbs Psychiatric: normal affect Skin: no rash Dx/Plan (1) Acute respiratory failure with hypoxia Code(s): J96.01 - ACUTE RESPIRATORY FAILURE WITH HYPOXIA Status: Acute (2) CHF exacerbation Code(s): I50.9 - HEART FAILURE, UNSPECIFIED Status: Acute (3) COPD exacerbation Code(s): J44.1 - CHRONIC OBSTRUCTIVE PULMONARY DISEASE W (ACUTE) EXACERBATION Status: Acute (4) Adenocarcinoma Code(s): C80.1 - MALIGNANT (PRIMARY) NEOPLASM, UNSPECIFIED Status: Chronic (5) Atrial fibrillation, persistent Code(s): I48.1 - PERSISTENT ATRIAL FIBRILLATION * DO NOT USE * Status: Chronic - Plan Plan: Pt is an 78 yo F with chronic hypoxic respiratory failures, COPD, CHF, and Stage IV Adenocarcinoma of the lung who presents for Acute Hypoxic Respiratory failure. 1. Acute on Chronic Hypoxic Respiratory Failure 2/2 CHF Exacerbation O2: 2.5-4L, baseline 3L * CXR: Stable abnormal pleural and parenchymal opacity in R middle and lower chest * Lasix 20 PO * Receiving KCl * Lung exam had crackles but 2+ pitting edema in the legs * Pulm consulted, appreciate recs. Recommend pleural catheter placement, so CV surg consulted. * Catheter placed this morning and 1400 mL removed * Repeat CXR: Presumed CHF, worsening pleural effusion, superimposed PNA or aspiration can't be excluded * CT: Increase in R pleural effusion with Mild improvement in LAD 2. COPD End expiratory wheeze on exam * Currently on Duonebs Q4 prn * Between 2.5-4L this morning 3. Stage IV Adenocarcinoma of the Lung Currently on immunotherapy 4. Afib * Eliquis was held for possible thoracentesis/catheter placement. * Will await pulms recs as far as catheter placement. * Cardiology consulted, appreciate recs. Will hold off on cardioversion. Signed off 5. HTN BP: 114/58 * Currently on home meds 6. Hypothyroid * On home levo 7. Pressure Ulcer on Sacrum Stage II vs Stage IV * Seen and evaluated by wound care * Pain in the sacral area yesterday * XR: Lucency & Irregularity of lowest sacral segment, could be related to osteo, MRI recommended * MRI unable to be preformed due to recent placement of pacemaker * Spoke with Dr. Michelle and he recommended CT if she is still hurting * She does not complain of any pain today * ESR: 7 & CRP: < 0.05 * WBC: 10.9 > 16.5 > 14.6 Code Status: DNR Diet: CC Activity: Ambulate with Assist DVT PPx: SCDs PCP: CC, bounce back Dispo: Tele inpt, consulted case management. Rehab screen placed. Addendum - Attending - Attending Attestation Date/Time: 05/15/19 4901 I personally evaluated the patient and discussed the management with the team. I agree with the History, Examination, Assessment and Plan documented above with any addition or exceptions noted below. Hopeful d/c pending decisions on placement.
[2019-05-15 07:28] LABS: Band 2 % (5-11); Lymphocytes 4 % (21-51); MDiff Complete? YES; Monocytes 4 % (0-10); Neutrophil 90 % (42-75); Ovalocytes SLIGHT = 2-5 cells (100X) (0-1/hpf); Platelet Morphology Comment Appears Decreased; Polychromasia SLIGHT = 2-3 cells (100X) (0-2/hpf)
[2019-05-15] MEDS: Metoprolol Tartrate 25 MG TAB PO SCH ×2 (09:15→21:23)
[2019-05-15] MEDS: Digoxin 0.125 MG TAB PO SCH (09:15)
[2019-05-15] MEDS: predniSONE 20 MG TAB PO SCH (09:16)
[2019-05-15] MEDS: Potassium Chloride 10 MEQ TAB PO SCH (09:16)
[2019-05-15] MEDS: Furosemide 20 MG TAB PO SCH (09:16)
--- NOTE | 2019-05-15 10:27 | PRG ---
DATE OF SERVICE: 05/15/2019 SUBJECTIVE: Bekah Tellez is an 78-year-old female, appears very weak. OBJECTIVE: VITAL SIGNS: Temperature is 97, pulse , respirations 16, blood pressure 114/69, saturations are 100% on 3 L. EXTREMITIES: She got 3+ ankle edema probably from stasis. CHEST: Decreased breath sounds without any wheezing. CARDIAC: Normal S1, S2. No gallops. ABDOMEN: No masses. LABORATORY DATA: Sodium 131, otherwise lytes unremarkable. ASSESSMENT: 1. Cor pulmonale. 2. Right metastatic adenocarcinoma, status post immunotherapy. 3. Severe CV deconditioning. 4. Chronic obstructive pulmonary disease. PLAN: The patient is a DNR. Depending upon the family's wishes, she could go home. I will continue PT rehab. Prognosis remains guarded. Job ID: [id number]
[2019-05-15] MEDS: Acetaminophen 325 MG TAB PO PRN (18:35)
[2019-05-15] MEDS: HumaLOG 300 UNITS/3 ML VIAL SC PRN ×2 (18:42→21:23)
[2019-05-15] MEDS: Gabapentin 300 MG CAP PO SCH (21:23)
[2019-05-16 04:42] LABS: BUN (Urea Nitrogen) 20 mg/dL (9.8-20.1); Calc. Creatinine Clearance 80 mL/min (70-130); Calcium 8.8 mg/dL (7.8-10.44); Estimated GFR-MDRD Greater than 90; Glucose 112 mg/dL (83-110)
[2019-05-16 05:13] LABS: Chloride 89 mmol/L (98-107); Potassium 4.7 mmol/L (3.5-5.1); Sodium 132 mmol/L (136-145)
[2019-05-16 05:16] LABS: Anion Gap 13 mmol/L (10-20); Carbon Dioxide 35 mmol/L (23-31)
[2019-05-16] MEDS: Levothyroxine Sodium 50 MCG TAB PO SCH (05:53)
--- NOTE | 2019-05-16 06:19 | PDOC.FM ---
- Subjective Subjective: She is dizzy this morning. She feels like she is breathing much better this morning. - Objective MAR Reviewed: Yes Vital Signs & Weight: Vital Signs (12 hours) Temp Pulse Resp BP Pulse Ox 05/16/19 03:36 98.3 F 75 14 109/54 L 98 05/15/19 23:23 97.2 F L 63 12 99/54 L 96 05/15/19 19:27 97.7 F 97 18 108/56 L 100 05/15/19 19:20 78 18 97 05/15/19 18:32 96 122/76 Weight Admit Weight 62.142 kg Weight 59.738 kg I&O: 05/14/19 05/15/19 05/16/19 06:59 06:59 06:59 Intake Total 240 670 30 Output Total 750 Balance -510 670 30 Result Diagrams: 05/16/19 03:50 05/16/19 03:50 Phys Exam - Physical Examination Constitutional: NAD HEENT: PERRLA, moist MMs Neck: supple, full ROM crackles in lungs Cardiovascular: RRR, no significant murmur Gastrointestinal: soft, non-tender, positive bowel sounds 2+ edema up to mid calf Neurological: moves all 4 limbs Lymphatic: no nodes Psychiatric: normal affect Skin: no rash Dx/Plan (1) Acute respiratory failure with hypoxia Code(s): J96.01 - ACUTE RESPIRATORY FAILURE WITH HYPOXIA Status: Acute (2) CHF exacerbation Code(s): I50.9 - HEART FAILURE, UNSPECIFIED Status: Acute (3) COPD exacerbation Code(s): J44.1 - CHRONIC OBSTRUCTIVE PULMONARY DISEASE W (ACUTE) EXACERBATION Status: Acute (4) Adenocarcinoma Code(s): C80.1 - MALIGNANT (PRIMARY) NEOPLASM, UNSPECIFIED Status: Chronic (5) Atrial fibrillation, persistent Code(s): I48.1 - PERSISTENT ATRIAL FIBRILLATION * DO NOT USE * Status: Chronic - Plan Plan: Pt is an 78 yo F with chronic hypoxic respiratory failures, COPD, CHF, and Stage IV Adenocarcinoma of the lung who presents for Acute Hypoxic Respiratory failure. 1. Acute on Chronic Hypoxic Respiratory Failure 2/2 CHF Exacerbation O2: 3L, baseline 3L * CXR: Stable abnormal pleural and parenchymal opacity in R middle and lower chest * Lasix 20 PO * Receiving KCl * Lung exam had crackles but 2+ pitting edema in the legs * Pulm consulted, appreciate recs. Recommend pleural catheter placement, so CV surg consulted. * Catheter placed this morning and 1400 mL removed * Repeat CXR: Presumed CHF, worsening pleural effusion, superimposed PNA or aspiration can't be excluded * CT: Increase in R pleural effusion with Mild improvement in LAD 2. COPD End expiratory wheeze on exam * Currently on Duonebs Q4 prn * Between 3L this morning 3. Stage IV Adenocarcinoma of the Lung Currently on immunotherapy 4. Afib * Eliquis was held for possible thoracentesis/catheter placement. * Will await pulms recs as far as catheter placement. * Cardiology consulted, appreciate recs. Will hold off on cardioversion. Signed off 5. HTN BP: 114/58 * Currently on home meds 6. Hypothyroid * On home levo 7. Pressure Ulcer on Sacrum Stage II vs Stage IV * Seen and evaluated by wound care * Pain in the sacral area yesterday * XR: Lucency & Irregularity of lowest sacral segment, could be related to osteo, MRI recommended * MRI unable to be preformed due to recent placement of pacemaker * Spoke with Dr. Michelle and he recommended CT if she is still hurting * She does not complain of any pain today * ESR: 7 & CRP: < 0.05 * WBC: 10.9 > 16.5 > 14.6 > 11.7 Code Status: DNR Diet: CC Activity: Ambulate with Assist DVT PPx: SCDs PCP: CC, bounce back Dispo: Tele inpt, awaiting placement. Will speak with palliative today. Addendum - Attending - Attending Attestation Date/Time: 05/16/19 1031 I personally evaluated the patient and discussed the management with Dr. Samano. I agree with the History, Examination, Assessment and Plan documented above with any addition or exceptions noted below. The patient is feeling better. Still waiting on placement. Pt's bp has been low/low-normal at baseline. Will try to space out her tramadol dosing as bp meds have already been held.
[2019-05-16 06:23] LABS: Hemoglobin 12.6 g/dL (12.0-16.0); Mean Corpuscular HGB CONC 31.7 g/dL (32.0-36.0); Mean Corpuscular Hemoglobin 27.2 pg (27.0-31.0); Mean Corpuscular Volume 85.9 fL (78.0-98.0); RBC Distribution Width 14.3 % (11.5-14.5); Red Blood Cell (RBC) Count 4.63 mill/uL (4.20-5.40); White Blood Cell (WBC) Count 11.7 thou/uL (4.8-10.8)
[2019-05-16] MEDS: traMADol HCl 50 MG TAB PO PRN ×2 (06:26→13:36)
[2019-05-16 06:27] LABS: Band 8 % (5-11); Large Platelets SLIGHT; Lymphocytes 8 % (21-51); MDiff Complete? YES; Mean Platelet Volume 13.4 fL (7.4-10.4); Monocytes 5 % (0-10); Neutrophil 78 % (42-75); Ovalocytes SLIGHT = 2-5 cells (100X) (0-1/hpf); Platelet Count 37 thou/uL (130-400); Platelet Morphology Comment Appears Decreased; Reactive Lymphocytes 1 % (0-10)
[2019-05-16] MEDS: Acetaminophen 325 MG TAB PO PRN (09:08)
[2019-05-16] MEDS: predniSONE 20 MG TAB PO SCH (09:08)
[2019-05-16] MEDS: Digoxin 0.125 MG TAB PO SCH (09:08)
[2019-05-16] MEDS ORDERED: Meclizine HCl 12.5 MG TAB PO PRN (09:38)
[2019-05-16] MEDS: Furosemide 20 MG TAB PO SCH (10:28)
[2019-05-16] MEDS: Metoprolol Tartrate 25 MG TAB PO SCH ×2 (10:29→20:26)
[2019-05-16] MEDS: Potassium Chloride 10 MEQ TAB PO SCH (10:29)
[2019-05-16] MEDS: HumaLOG 300 UNITS/3 ML VIAL SC PRN (18:00)
[2019-05-16] MEDS: Gabapentin 300 MG CAP PO SCH (20:24)
[2019-05-16] MEDS ORDERED: traMADol HCl 50 MG TAB PO SCH (21:00)
--- NOTE | 2019-05-17 04:55 | PDOC.FM ---
- Subjective Subjective: She is having dry mouth this morning. She was having a little more difficulty breathing this morning, but oxygen was decreased from 3 to 2 liters. She is on 2L at home. She is having a little more pain today. - Objective MAR Reviewed: Yes Vital Signs & Weight: Vital Signs (12 hours) Temp Pulse Resp BP Pulse Ox 05/16/19 20:00 97.8 F 84 16 99/58 L 96 05/16/19 19:19 71 16 97 Weight Admit Weight 62.142 kg Weight 59.738 kg I&O: 05/15/19 05/16/19 05/17/19 06:59 06:59 06:59 Intake Total 670 30 Balance 670 30 Result Diagrams: 05/16/19 03:50 05/16/19 03:50 Phys Exam - Physical Examination Constitutional: NAD HEENT: PERRLA dry MM Neck: supple, full ROM clear on L, right has some crackling Cardiovascular: no significant murmur irregular rate, regular rhythm Gastrointestinal: soft, non-tender, positive bowel sounds Musculoskeletal: pulses present 2+ pitting edema Neurological: moves all 4 limbs Psychiatric: normal affect Skin: no rash Dx/Plan (1) Acute respiratory failure with hypoxia Code(s): J96.01 - ACUTE RESPIRATORY FAILURE WITH HYPOXIA Status: Acute (2) CHF exacerbation Code(s): I50.9 - HEART FAILURE, UNSPECIFIED Status: Acute (3) COPD exacerbation Code(s): J44.1 - CHRONIC OBSTRUCTIVE PULMONARY DISEASE W (ACUTE) EXACERBATION Status: Acute (4) Adenocarcinoma Code(s): C80.1 - MALIGNANT (PRIMARY) NEOPLASM, UNSPECIFIED Status: Chronic (5) Atrial fibrillation, persistent Code(s): I48.1 - PERSISTENT ATRIAL FIBRILLATION * DO NOT USE * Status: Chronic - Plan Plan: Pt is an 78 yo F with chronic hypoxic respiratory failures, COPD, CHF, and Stage IV Adenocarcinoma of the lung who presents for Acute Hypoxic Respiratory failure. 1. Acute on Chronic Hypoxic Respiratory Failure 2/2 CHF Exacerbation O2: 3L, baseline 3L * CXR: Stable abnormal pleural and parenchymal opacity in R middle and lower chest * Lasix 20 PO * Receiving KCl * Lung exam had crackles but 2+ pitting edema in the legs * Pulm consulted, appreciate recs. Recommend pleural catheter placement, so CV surg consulted. * Catheter placed this morning and 1400 mL removed * Repeat CXR: Presumed CHF, worsening pleural effusion, superimposed PNA or aspiration can't be excluded * CT: Increase in R pleural effusion with Mild improvement in LAD 2. COPD End expiratory wheeze on exam * Currently on Duonebs Q4 prn * Between 3L this morning 3. Stage IV Adenocarcinoma of the Lung Currently on immunotherapy 4. Afib * Eliquis was held for possible thoracentesis/catheter placement. * Will await pulms recs as far as catheter placement. * Cardiology consulted, appreciate recs. Will hold off on cardioversion. Signed off 5. HTN BP: 114/58 * Currently on home meds 6. Hypothyroid * On home levo 7. Pressure Ulcer on Sacrum Stage II vs Stage IV * Seen and evaluated by wound care * Pain in the sacral area yesterday * XR: Lucency & Irregularity of lowest sacral segment, could be related to osteo, MRI recommended * MRI unable to be preformed due to recent placement of pacemaker * Spoke with Dr. Michelle and he recommended CT if she is still hurting * She does not complain of any pain today * ESR: 7 & CRP: < 0.05 * WBC: 10.9 > 16.5 > 14.6 > 11.7 Code Status: DNR Diet: CC Activity: Ambulate with Assist DVT PPx: SCDs PCP: CC, bounce back Dispo: Tele inpt, awaiting placement. Addendum - Attending - Attending Attestation Date/Time: 05/17/19 9509 I personally evaluated the patient and discussed the management with Dr. Samano. I agree with the History, Examination, Assessment and Plan documented above with any addition or exceptions noted below. Pt was complaining of shortness of breath. Increasing O2 bck to 3 L. Pt also complains of sacral pain. will get CT to further evaluate for osteomyelitis. Pt has 1-2+ edema bilaterally. Waiting on rehab placement. Consider additional dose of lasix if blood pressure will tolerate.
[2019-05-17] MEDS: Levothyroxine Sodium 50 MCG TAB PO SCH (05:06)
[2019-05-17] MEDS: traMADol HCl 50 MG TAB PO PRN ×3 (09:10→20:44)
[2019-05-17] MEDS: predniSONE 20 MG TAB PO SCH (09:11)
[2019-05-17] MEDS: Metoprolol Tartrate 25 MG TAB PO SCH ×2 (09:12→20:43)
[2019-05-17] MEDS: Digoxin 0.125 MG TAB PO SCH (09:13)
[2019-05-17] MEDS: Furosemide 20 MG TAB PO SCH (09:13)
[2019-05-17] MEDS: Potassium Chloride 10 MEQ TAB PO SCH (09:15)
[2019-05-17] MEDS: BIOTENE MOUTH SPRAY 44.3 ML PO SCH ×2 (09:22→20:50)
--- NOTE | 2019-05-17 10:38 | CT ---
CT pelvis noncontrast HISTORY: Pressure ulcer. Abnormal radiograph. Evaluate for sacral lesion. FINDINGS: No focal sacral or coccygeal defects. In the area of lucency on recent radiograph, coccygea l segments are intact. No aggressive osseous destruction. Lack of contrast limits evaluation of the soft tissues. There is prominent calcification throughout t he arterial structures. Diverticula of the colon. Fecal distention of the rectum up to 6.9 cm. Urinary bladder is unremarkable IMPRESSION: No aggressive destruction of the sacrum/coccyx or other acute osseous abnormalities evide nt. Atherosclerosis. Appearance of fecal impaction.
[2019-05-17] MEDS: HumaLOG 300 UNITS/3 ML VIAL SC PRN (17:52)
[2019-05-17] MEDS: Gabapentin 300 MG CAP PO SCH (20:43)
[2019-05-17] MEDS: Acetaminophen 325 MG TAB PO PRN (20:51)
[2019-05-18] MEDS: Levothyroxine Sodium 50 MCG TAB PO SCH (05:48)
--- NOTE | 2019-05-18 06:06 | PDOC.FM ---
- Subjective Subjective: She is tired again today. She says she is having soreness around her pleural catheter when she moves. - Objective MAR Reviewed: Yes Vital Signs & Weight: Vital Signs (12 hours) Temp Pulse Resp BP Pulse Ox 05/18/19 04:09 98.7 F 76 14 111/57 L 96 05/17/19 20:42 98.5 F 112 H 20 150/73 H 96 05/17/19 19:07 98 14 96 Weight Admit Weight 62.142 kg Weight 59.738 kg I&O: 05/16/19 05/17/19 05/18/19 06:59 06:59 06:59 Intake Total 30 120 1380 Output Total 500 Balance 30 120 880 Result Diagrams: 05/16/19 03:50 05/16/19 03:50 Phys Exam - Physical Examination Constitutional: NAD HEENT: PERRLA, moist MMs Neck: supple, full ROM Respiratory: clear to auscultation bilateral Cardiovascular: no significant murmur irregular rhythm, regular rate Gastrointestinal: soft, non-tender, positive bowel sounds Musculoskeletal: pulses present 2+ pitting edema Neurological: normal sensation Psychiatric: normal affect Skin: cap refill <2 seconds Dx/Plan (1) Acute respiratory failure with hypoxia Code(s): J96.01 - ACUTE RESPIRATORY FAILURE WITH HYPOXIA Status: Acute (2) CHF exacerbation Code(s): I50.9 - HEART FAILURE, UNSPECIFIED Status: Acute (3) COPD exacerbation Code(s): J44.1 - CHRONIC OBSTRUCTIVE PULMONARY DISEASE W (ACUTE) EXACERBATION Status: Acute (4) Adenocarcinoma Code(s): C80.1 - MALIGNANT (PRIMARY) NEOPLASM, UNSPECIFIED Status: Chronic (5) Atrial fibrillation, persistent Code(s): I48.1 - PERSISTENT ATRIAL FIBRILLATION * DO NOT USE * Status: Chronic - Plan Plan: Pt is an 78 yo F with chronic hypoxic respiratory failures, COPD, CHF, and Stage IV Adenocarcinoma of the lung who presents for Acute Hypoxic Respiratory failure. 1. Acute on Chronic Hypoxic Respiratory Failure 2/2 CHF Exacerbation O2: 3L, baseline 3L * CXR: Stable abnormal pleural and parenchymal opacity in R middle and lower chest * Lasix 20 PO * Receiving KCl * Lung exam had crackles but 2+ pitting edema in the legs * Pulm consulted, appreciate recs. Recommend pleural catheter placement, so CV surg consulted. * Catheter placed this morning and 1400 mL removed * Repeat CXR: Presumed CHF, worsening pleural effusion, superimposed PNA or aspiration can't be excluded * CT: Increase in R pleural effusion with Mild improvement in LAD 2. COPD End expiratory wheeze on exam * Currently on Duonebs Q4 prn * Between 3L this morning 3. Stage IV Adenocarcinoma of the Lung Currently on immunotherapy 4. Afib * Eliquis was held for possible thoracentesis/catheter placement. * Will await pulms recs as far as catheter placement. * Cardiology consulted, appreciate recs. Will hold off on cardioversion. Signed off 5. HTN BP: 114/58 * Currently on home meds 6. Hypothyroid * On home levo 7. Pressure Ulcer on Sacrum Stage II vs Stage IV * Seen and evaluated by wound care * Pain in the sacral area yesterday * XR: Lucency & Irregularity of lowest sacral segment, could be related to osteo, MRI recommended * MRI unable to be preformed due to recent placement of pacemaker * Spoke with Dr. Michelle and he recommended CT if she is still hurting * She does not complain of any pain today * ESR: 7 & CRP: < 0.05 * WBC: 10.9 > 16.5 > 14.6 > 11.7 * CT: No aggressive destruction of sacrum/coccyx or other osseous abnormalities. 8. Constipation * Will get fleet mineral oil enema * Started Ducolax & Miralax Code Status: DNR Diet: CC Activity: Ambulate with Assist DVT PPx: SCDs PCP: [facility], bounce back Dispo: Tele inpt, awaiting placement. Addendum - Attending - Attending Attestation Date/Time: 05/18/19 1819 I personally evaluated the patient and discussed the management with Dr. Samano. I agree with the History, Examination, Assessment and Plan documented above with any addition or exceptions noted below. Pt with increased LE edema. Will give IV lasix. Waiting on inpt rehab decision as pt is very deconditioned.
[2019-05-18] MEDS ORDERED: Fleet Enema 133 ML BOT PR SCH (06:15)
[2019-05-18] MEDS ORDERED: Mineral Oil ENEMA PR SCH (06:30)
[2019-05-18] MEDS ORDERED: Bisacodyl 5 MG TAB PO PRN (07:45)
[2019-05-18] MEDS: Metoprolol Tartrate 25 MG TAB PO SCH (08:10)
[2019-05-18] MEDS: Digoxin 0.125 MG TAB PO SCH (08:11)
[2019-05-18] MEDS: Potassium Chloride 10 MEQ TAB PO SCH (08:11)
[2019-05-18] MEDS: Furosemide 20 MG TAB PO SCH (08:11)
[2019-05-18] MEDS: predniSONE 20 MG TAB PO SCH (08:11)
[2019-05-18] MEDS: BIOTENE MOUTH SPRAY 44.3 ML PO SCH (08:12)
[2019-05-18] MEDS: traMADol HCl 50 MG TAB PO PRN (08:12)
[2019-05-18] MEDS ORDERED: Polyethylene Glycol 3350 17 GM Packet PO SCH (09:00)
[2019-05-18] MEDS ORDERED: Furosemide 40 MG/4 ML VIAL SLOW IVP SCH (10:30)
[2019-05-18] MEDS: HumaLOG 300 UNITS/3 ML VIAL SC PRN ×2 (13:09→16:58)
[2019-05-18 22:51] VITALS: BP 99/54; TEMP 97.6
--- NOTE | 2019-05-20 08:55 | PQF ---
YASH GOFF KATHERINE MD [id number] [facility]-291 [id number] CLINICAL DOCUMENTATION CLARIFICATION FORM: POST DISCHARGE Addendum to original discharge summary date: ____ Late entry note date: __ DATE:05/20/2019 ATTN:YAMILKA GARCIA MD Please exercise your independent, professional judgment in responding to the clarification form. Clinical indicators are provided on the bottom of this form for your review Please check appropriate box(s): [ ] Pressure Ulcer on sacrum stage II [ ] Pressure Ulcer on sacrum stage IV [ ] Other diagnosis [ x ] Unable to determine For continuity of documentation, please document condition throughout progress notes and discharge summary. Thank You. CLINICAL INDICATORS - SIGNS / SYMPTOMS / LABS Pressure ulcer on sacrum,Stage II vs stage IV-Documented in Family medicine progress note on 05/18 by Dany Samano MD. Pain in the sacral area yesterday-Documented in Family medicine progress note on 05/18 by Dany Samano MD. XR: Lucency & Irregularity of lowest sacral segment,Could be related to osteo, MRI recommended-Documented in Family medicine progress note on 05/18 by Dany Samano MD. MRI unable to be performed due to recent placement of pacemaker-Documented in Family medicine progress note on 05/18 by Dany Samano MD. She dose not complain of any pain today-Documented in Family medicine progress note on 05/18 by Dany Samano MD. ESR:7,CRP:<0.05-Documented in Family medicine progress note on 05/18 by Dany Samano MD. WBC: 10.9>16.5>14.6>11.7-Documented in Family medicine progress note on 05/18 by Dany Sam[address] MD. CT:No aggressive destruction of sacrum/coccyx or other osseous abnormalities- Documented in Family medicine progress note on 05/18 by Dany Samano MD. Activity: Ambulate with assist-Documented in Family medicine progress note on 05/18 by Dany Samano MD. RISK FACTORS: Activity: Ambulate with assist-Documented in Family medicine progress note on 05/18 by Dany Samano MD. TREATMENTS: Seen and evaluated by wound care-Documented in Family medicine progress note on 05/18 by Dany Samano MD. Spoke with Dr. Michelle and her recommenced CT if she is still hurting-Documented in Family medicine progress note on 05/18 by Dany Samano MD. (This form is maintained as a part of the permanent medical record) 2015 [employer] All Rights Reserved [email or web address] [not provided] MTDD
--- NOTE | 2019-05-21 13:37 | DIS ---
DATE OF ADMISSION: 05/10/2019 DATE OF DISCHARGE: 05/18/2019 RESIDENT: Dany Samano MD ADMITTING ATTENDING: Edmar Haney MD DISCHARGE ATTENDING: Esther Zamarripa MD CONSULTS: 1. Pulmonology recommend continuing a 5-day course of steroids and continuing home O2. 2. Cardiology recommend just continuation of rate control for AFib and decide about pleurodesis. CV Surgery placed a pleural catheter in during the hospital stay. PROCEDURES: * Chest x-ray, 05/10, stable pleural effusions. * Chest x-ray on 05/12 shows presumed congestive heart failure and worsening bilateral pleural effusions with adjacent parenchymal changes, superimposed pneumonia, and/or aspiration. * Chest x-ray on 05/14, shows right-sided thoracostomy tube, decrease in right pleural effusion, tiny left pleural effusion. * Chest CT on 05/13 shows interval increase in size of right pleural effusion and improvement in mediastinal lymphadenopathy since 03/17 noted tiny left pleural effusion. * Sacrum and coccyx x-ray on 05/13 shows lucency and irregularity involving lower most sacral segment, which could be related to osteomyelitis. MRI pelvis is recommended. * CT pelvis shows no aggressive destruction of the sacrum, coccyx, or other acute osseous abnormalities. PRIMARY DIAGNOSES: Acute hypoxic respiratory failure, congestive heart failure exacerbation, chronic obstructive pulmonary disease exacerbation. SECONDARY DIAGNOSES: Stage IV adenocarcinoma of the lung, atrial fibrillation, hypertension, hypothyroid, pressure ulcers on sacrum, constipation. DISCHARGE MEDICATIONS: Continue home medications. No new scripts written. HISTORY OF PRESENT ILLNESS/HOSPITAL COURSE: The patient is an 78-year-old female with past medical history of chronic hypoxic respiratory failure on home oxygen of 3 L, COPD with remote nicotine dependence, recently diagnosed stage IV lung adenocarcinoma with recurrent malignant pleural effusion with recent thoracentesis 1.25 L. Pathology positive for malignancy, who completed her first round of immunotherapy. She also has atrial fibrillation with recent permanent pacemaker implantation in March 2019. She is on Eliquis for diastolic congestive heart failure with recent exacerbation, hypertension, and hypothyroidism, who was recently hospitalized and discharged from acute inpatient rehab facility approximately 10 days prior to returning to the hospital on 05/10 for worsening peripheral edema, exertional dyspnea, orthopnea, and diminished functional status, prompting further evaluation. In the ER, the patient was volume overloaded as noted on chest x- ray above. The patient was administered 40 of IV Lasix, nebulized bronchodilator, and admitted for further evaluation. 1. Acute on chronic hypoxic respiratory failure secondary to congestive heart failure exacerbation. O2 is currently 3 L, her baseline at home. a. Chest x-ray as noted above. b. Lasix now given 20 mg p.o. daily. c. Receiving potassium chloride. d. Lung exam on right still has some crackles and there is 2+ pitting edema in the legs. e. Pulmonary consulted. Appreciate recommendations as above. f. Catheter placed within pleura with 1400 mL removed. 2. Chronic obstructive pulmonary disease and expiratory wheeze on exam. a. Currently, on DuoNeb q.4. 3. Stage IV adenocarcinoma of the lung, currently on immunotherapy. 4. AFib. a. Cardiology consulted and appreciated recs. We will hold off on cardioversion. 5. Hypertension. a. Blood pressure 114/58. b. Currently on home medications. 6. Hypothyroid. a. On Levothyroxine. 7. Pressure ulcer on sacrum stage II versus stage VII, seen, evaluated by wound care and pain in sacral area. a. X-ray and CT were done. * X-ray showed some lucency and irregularity. * CT ruled out any fracture or malignancy. b. White blood cell count trended down during hospital stay. c. ESR and CRP are negative. 8. Constipation. a. The patient had documented on CT, fecal impaction, but the patient had 4 large bowel movements and constipation resolved. DISPOSITION: Stable. DISCHARGE INSTRUCTIONS: 1. Location: Inpatient rehab. 2. Activity as tolerated with PT and OT and Speech Therapy. 3. Diet: Heart-healthy and diabetic. 4. Follow up with [facility], Dr. Wilson in [address] Hernandez and Dr. Sindy Hickman in 7 days. Job ID: [id number] [facility]
== END 2019-05-18 19:35 | DRG 180 ==
LOC: ERS 09:31 → 2NO 13:44
PROVIDERS: ADMIT Hospitalist; ATTEND Family Medicine
PROC: 0W9930Z Drainage of Right Pleural Cavity with Drainage Device, Percutaneous Approach (ICD-10-PCS; principal; 2019-05-14)
DX: C34.31 Malignant neoplasm of lower lobe, right bronchus or lung (principal); J96.21 Acute and chronic respiratory failure with hypoxia; J18.9 Pneumonia, unspecified organism; I50.33 Acute on chronic diastolic (congestive) heart failure; J44.1 Chronic obstructive pulmonary disease with (acute) exacerbation; J91.0 Malignant pleural effusion; I48.19 Other persistent atrial fibrillation; I47.1 Supraventricular tachycardia; I11.0 Hypertensive heart disease with heart failure; I48.91 Unspecified atrial fibrillation; E03.9 Hypothyroidism, unspecified; K59.00 Constipation, unspecified; Z66 Do not resuscitate; Z90.49 Acquired absence of other specified parts of digestive tract; L89.152 Pressure ulcer of sacral region, stage 2; Z95.0 Presence of cardiac pacemaker; Z98.51 Tubal ligation status; Z87.891 Personal history of nicotine dependence; Z99.81 Dependence on supplemental oxygen
CPT/HCPCS: 36415; 36416; 71045; 71250; 72192; 72220; 80048; 80053; 83880; 84484; 85025; 85652; 86140; 93005; 93798; 94640; 96374; C1729; J1642; J1940; J2250; J2270; J2930; J3010; J7512; J7620; J8597

== ENCOUNTER 2019-06-18 12:06 | Inpatient (IN) | payer MEDICARE, BC ==
--- NOTE | 2019-06-18 13:01 | RAD ---
Chest AP view INDICATION: Altered mental status COMPARISON: Prior exam dated May 30, 2019 FINDINGS: Lungs:Near complete opacification of the right hemithorax Cardiac silhouette:The cardiomediastinal silhouette appears within normal limits. Pulmonary vasculature:Normal Pleural spaces:There is an enlarging large size right pleural effusion. There is a tiny left pleural effusion. Right-sided thoracostomy tube is unchanged in position. Upper abdomen:No abnormality seen. Osseous structures: No acute osseous abnormality. Additional findings:Multilevel the pacemaker is unchanged. Right chest wall port is unchanged. IMPRESSION: Worsening large right and small left pleural effusion. Stable right-sided thoracostomy tu be.
[2019-06-18 13:22] LABS: Hemoglobin 11.4 g/dL (12.0-16.0); Mean Corpuscular HGB CONC 30.5 g/dL (32.0-36.0); Mean Corpuscular Hemoglobin 26.1 pg (27.0-31.0); Mean Corpuscular Volume 85.6 fL (78.0-98.0); Mean Platelet Volume 11.2 fL (7.4-10.4); Platelet Count 96 thou/uL (130-400); RBC Distribution Width 15.7 % (11.5-14.5); Red Blood Cell (RBC) Count 4.36 mill/uL (4.20-5.40); White Blood Cell (WBC) Count 26.4 thou/uL (4.8-10.8)
[2019-06-18 13:33] LABS: Anisocytosis SLIGHT = 6-15 cells (100X) (0-5/hpf); Band 5 % (5-11); Elliptocytes SLIGHT = 2-5 cells (100X) (0-1/hpf); Hypochromia SLIGHT = 6-15 cells (100X) (0-5/hpf); Large Platelets SLIGHT; Lymphocytes 1 % (21-51); MDiff Complete? YES; Metamyelocyte 1 % (0-0); Monocytes 4 % (0-10); Myelocyte 2 % (0-0); Neutrophil 86 % (42-75); Ovalocytes SLIGHT = 2-5 cells (100X) (0-1/hpf); Platelet Morphology Comment Appears Decreased; Polychromasia SLIGHT = 2-3 cells (100X) (0-2/hpf); Reactive Lymphocytes 1 % (0-10)
[2019-06-18] MEDS ORDERED: Cefepime 2 GM VIAL ONE (13:41)
[2019-06-18 13:44] LABS: ALT (SGPT) 100 U/L (8-55); AST (SGOT) 80 U/L (5-34); Albumin 2.6 g/dL (3.4-4.8); Alkaline Phosphatase 697 U/L (40-110); Anion Gap 15 mmol/L (10-20); BUN (Urea Nitrogen) 39 mg/dL (9.8-20.1); Bilirubin, Total 0.7 mg/dL (0.2-1.2); CK (CPK) Less than 9 U/L (29-168); Calc. Creatinine Clearance 0 mL/min (70-130); Calcium 9.8 mg/dL (7.8-10.44); Carbon Dioxide 26 mmol/L (23-31); Chloride 96 mmol/L (98-107); Estimated GFR-MDRD 72; Glucose 144 mg/dL (83-110); Potassium 6.3 mmol/L (3.5-5.1); Protein, Total 5.6 g/dL (6.0-8.3); Sodium 131 mmol/L (136-145)
--- NOTE | 2019-06-18 14:14 | PDOC.FPRHP ---
- History of Present Illness Chief Complaint: thrush, leg swelling History of Present Illness: 78YOF with a PMH significant for stage IV adenocarcinoma of lung, a fib, HTN, & hypothyroidism who presented to the ED with her due to multiple issues. Currently undergoing Keytruda tx for lung CA with Dr. Michelle. Has had 2 treatments and next tx was GENEVIEVE for this Saturday but delayed due to elevated LFTs. Has right pleural cath inplace for recurrent maligant pleural effusions. states that pt was to have pleural fluid drained the other day but the [facility] where she resides ran out of negative pressure canisters. also notes that pts oral intake has decreased recently due to developing oral thrush and having pain with swallowing. Pt denies any fever, cough, chills, N/V/D. She does note decreased urine output which she attributes to dehydration. ED Course: IV vanc & cefepime, 2L NS, 0.5mg Digoxin, 2g IV Mg - Allergies/Adverse Reactions Allergies Allergy/AdvReac Type Severity Reaction Status Date / Time No Known Allergies Allergy Verified 06/18/19 16:11 - Home Medications Medication Instructions Recorded Confirmed Type Cholecalciferol (Vitamin D3) 1 tab PO DAILY 04/09/19 06/18/19 History [Vitamin D3] Levothyroxine Sodium 1 tablet PO DAILY 04/09/19 06/18/19 History Gabapentin [Neurontin] 300 mg PO QPM cap 04/16/19 06/18/19 Rx Digoxin [Lanoxin] 0.125 mg PO DAILY 04/28/19 06/18/19 History Apixaban [Eliquis] 2.5 mg PO BID #60 tab 04/30/19 06/18/19 Rx Metoprolol Tartrate [Lopressor] 25 mg PO BID #60 tab 04/30/19 06/18/19 Rx Potassium Chloride [Klor-Con 10] 10 meq PO DAILY #30 tab 04/30/19 06/18/19 Rx metFORMIN [Glucophage] 500 mg PO BID #60 tab 04/30/19 06/18/19 Rx Diltiazem HCl [Cardizem CD] 60 mg PO TID 30 Days #90 tab 05/18/19 06/18/19 Rx Furosemide [Lasix] 20 mg PO DAILY tab 05/18/19 06/18/19 Rx Ipratropium/Albuterol Sulfate 3 ml NEB [id number] neb 05/18/19 06/18/19 Rx [DuoNeb] Saliva Stimulant Agents Comb.3 0 ml PO BID oral.sachin 05/18/19 06/18/19 Rx [Biotene Moisturizing Mouth] traMADol HCl [Ultram] 50 mg PO Q6H PRN tab 05/18/19 06/18/19 Rx - History PMHx: a-fib, stage 4 adenocarcinoma of the lung, COPD, CHF, DMII PSHx: cholecystectomy, tubal ligation, pacemaker, mediport placed 03/2019, pacemaker placed 04/14, pleural cath placed 05/14 FHx: non-contributory Social: smoked for 40 years (quit 2000), occasional alcohol, denies drug use - Review of Systems General: reports: weight/appetite/sleep changes. denies: fever/chills Eyes: denies: eye pain, vision changes ENT: reports: other (mouth and throat pain). denies: nasal congestion, rhinorrhea Respiratory: reports: shortness of breath (mild). denies: cough, congestion, exercise intolerance Cardiovascular: reports: edema (chronic). denies: chest pain, palpitation Gastrointestinal: reports: abdominal pain. denies: nausea, vomiting, diarrhea, constipation Genitourinary: reports: other (oliguria). denies: dysuria Skin: reports: lesions (chronic lower extremity and sacral). denies: rashes Musculoskeletal: denies: pain, tenderness Neurological: denies: numbness, weakness Psychological: reports: depression. denies: other - Vital signs BP: 103/72 HR: 137 RR: 35 Tmax: Pox: 92% on 4L NC Wt: 58kg - Physical Exam Constitutional: NAD, awake, alert and oriented -Constitutional: Ill and disheveled appearing HEENT: EOMI -HEENT: Poor dentition, dry MM, erythema and white patches throughout mouth Neck: supple, trachea midline Heart: pulses present -Heart: Irregularly irregular and tachycardic -Lungs: Essentially absent breath sounds on the right, short inspiratory phase, coarse breath sounds on left, no wheezing Abdomen: soft -Abdomen: Diffuse abdominal tenderness, worse in epigastric and RUQ -Musculoskeletal: Poor tone, muscle atrophy diffusely Neurological: no focal deficit, normal sensation -Skin: BLE weeping wounds noted Heme/Lymphatic: no unusual bruising or bleeding -Psychiatric: Responds to questions with short phrases FMR H&P: Results - Labs Result Diagrams: 06/19/19 04:05 06/19/19 14:19 Lab results: WBC 26.4 thou/uL (4.8-10.8) H 06/18/19 13:07 Hgb 11.4 g/dL (12.0-16.0) L 06/18/19 13:07 Hct 37.3 % (36.0-47.0) 06/18/19 13:07 MCV 85.6 fL (78.0-98.0) 06/18/19 13:07 Plt Count 96 thou/uL (130-400) L 06/18/19 13:07 Band Neuts % (Manual) 5 % (5-11) 06/18/19 13:07 Sodium 131 mmol/L (136-145) L 06/18/19 13:07 Potassium 6.3 mmol/L (3.5-5.1) H 06/18/19 13:07 Chloride 96 mmol/L (98-107) L 06/18/19 13:07 Carbon Dioxide 26 mmol/L (23-31) 06/18/19 13:07 BUN 39 mg/dL (9.8-20.1) H 06/18/19 13:07 Creatinine 0.77 mg/dL (0.6-1.1) 06/18/19 13:07 Glucose 144 mg/dL (83-110) H 06/18/19 13:07 Calcium 9.8 mg/dL (7.8-10.44) 06/18/19 13:07 Total Bilirubin 0.7 mg/dL (0.2-1.2) 06/18/19 13:07 AST 80 U/L (5-34) H 06/18/19 13:07 ALT 100 U/L (8-55) H 06/18/19 13:07 Alkaline Phosphatase 697 U/L (40-110) H 06/18/19 13:07 Creatine Kinase Less than 9 U/L (29-168) L 06/18/19 13:07 Serum Total Protein 5.6 g/dL (6.0-8.3) L 06/18/19 13:07 Albumin 2.6 g/dL (3.4-4.8) L 06/18/19 13:07 - EKG Interpretation EK lead EKG shows, atrial fibrillation with controlled ventricular response, Rate (beats per minute): 130, Clinical impression:, non-specific EKG, septal infarct, age undetermined. - Radiology Interpretation Chest x-ray Status: image reviewed by me, report reviewed by me (Worsening large right and small left pleural effusion. Stable right-sided thoracostomy tu be.) FMR H&P: A/P - Problem List (1) Malignant pleural effusion Current Visit: Yes Status: Acute Code(s): J91.0 - MALIGNANT PLEURAL EFFUSION (2) Hyperkalemia Current Visit: Yes Status: Acute Code(s): E87.5 - HYPERKALEMIA (3) Hyponatremia Current Visit: No Status: Acute Code(s): E87.1 - HYPO-OSMOLALITY AND HYPONATREMIA (4) Physical deconditioning Current Visit: No Status: Acute Code(s): R53.81 - OTHER MALAISE (5) Thrombocytopenia Current Visit: No Status: Acute Code(s): D69.6 - THROMBOCYTOPENIA, UNSPECIFIED (6) Adenocarcinoma Current Visit: No Status: Chronic Code(s): C80.1 - MALIGNANT (PRIMARY) NEOPLASM, UNSPECIFIED (7) Atrial fibrillation, persistent Current Visit: No Status: Chronic Code(s): I48.1 - PERSISTENT ATRIAL FIBRILLATION * DO NOT USE * - Plan Acute Hypoxic Respiratory Failure 2/2 Malignant Pleural Effusion - On 3L O2 chronically, now maintaining sats on 4L - White out pleural effusion seen on CXR - Will access pleural cath q-shift as directed - Repeat CXR tomorrow morning SIRS - No source identified - UA ordered once pt is able to make urine - Received vanc and cefepime in ED - Blood cultures pending - CXR after pleural effusion resolves to evaluate for PNA Transaminitis - AST/ALT of 80/100 & alk phos of 697. Tbili WNLs @ 0.7. - Abdominal tenderness on exam - RUQ abdominal US ordered, if no significant findings identified will consider CT if still experiencing sx Hyperkalemia - K+: 6.3 on admission, no EKG changes or sx noted - Will plan to fluid hydrate and trend BMP - If not improved with IVF will plan for D50 and insulin Oral candidiasis w/ odynophagia - Magic mouth wash QID - ST consult Hyponatremia and hypochloremia - acute on chronic - Likely 2/2 poor PO intake. Will start magic mouthwash and encourage PO intake & hydration. - Trend with QD CMPs Anemia and thrombocytopenia - Pt currently receiving chemo and malnurished - Will continue to trend at this point as not at critical levels Stage I ulcers on LEs - Consult WC. No s/s of infection. Chronic a fib s/p pacemaker placement - 0.5mg of IV Dig in the ED - Still in afib RVR on exam - Likely 2/2 volume depletion - Continue to monitor and resume home Rx HTN - Will resume home meds as tolerated by patient. Hypothyroidism - Resume home meds. Fluids: NS @ 100mL/hr Code status: DNR-DNI DVT PPx: Eliquis GI PPX: Famotidine IV BID Dispo: Will admit for close monitoring on telemetry overnight. Anticipated LOS at least 2 midnights pending clinical course. FMR H&P: Upper Level - Pertinent history 78YOF with a PMH significant for stage IV adenocarcinoma of the lung, chronic a fib w/ pacemaker in place, HTN & hypothryroidism who presents from [facility] and rehab with her for multiple complaints. Per the the patient was recently discharged there about 2 weeks ago and has slowly declined since. States he has many concerns regarding her current state of health with the first being that he is concerned she has thrush. States she has been unable to tolerate PO for the last few days 2/2 painful swallowing. Patient states she has a sore throat and that it hurts to swallow even without food or drink in her mouth. An additional concern is that she has had increased LE edema with seeping of clear fluid from her B/L legs over the last few days. also reports that because she cannot eat she has become very weak and she needs nutrition so she can get stronger and continue her chemo. Reports she is currently following with Dr. Michelle and has undergone 2 Keytruda treatments so far. States her next tx was supposed to be this past Saturday but she had elevated LFTs on a blood draw so Dr. Michelle wanted to delay it by 1 week. Patient endorses associated fever/chills but denies any chest pain, abd pain, N/ V, diarrhea, constipation or new rashes. - Pertinent findings REVIEW OF SYSTEMS: Gen: + fever, chills, and fatigue Neuro: no numbness/tingling, denies headache Eyes: no visual changes ENT: + sore throat & odynophagia Resp: no cough or sputum production; + SOB Card: denies chest pain, + LE edema GI: no N/V/D, no abdominal pain, no constipation : no dysuria, no hematuria; + oliguria MSK: + myalgias, + joint pain/stiffness Heme: no easy bruising/bleeding, + blood thinners (Eliquis) Skin: no rash, no erythema; + new lesions on legs Vitals: BP: 103/72 HR: 137 RR: 35 Tmax: Pox: 92% on 4L NC Wt: 57kg PHYSICAL EXAMINATION: General: Malnourished appearing in moderate respiratory distress w/ tachypnea, alert and oriented to person only. HEENT: normal sclera, oropharynx with scattered white plaques throughout; dry mucus membranes Neck: Supple. Full ROM. Heart/Cardiovascular System: irregularly irregular rhythm with rapid rate; 2+ pitting edema in B/L LEs Lungs/Respiratory System: Moderate increased work of breathing. Decreased breath sounds with diffuse crackles on the right and normal breath sounds on the left Abdomen/Gastro-Intestinal System: abdominal TTP throughout with no rebound or guarding, normal bowel sounds Extremities: Warm extremities. No cyanosis but 2+ edema. Neuro: No gross deficits appreciated. CN 2-12 grossly intact Psychiatry: Awake, Alert and cooperative with exam Skin: No rashes; stage I ulcer on LLE noted Musculoskeletal: Full ROM throughout - Plan Date/Time: 06/18/19 1414 Aimee Romo, have evaluated this patient and agree with findings/plan as outlined by product management intern resident. Pertinent changes/additions are listed here. 78YOF with a PMH significant for stage IV adenocarcinoma of the lung, chronic a fib w/ pacemaker in place, HTN & hypothryroidism who presents from [facility] and rehab with her for multiple complaints & found to have the following: #Acute hypoxic respiratory failure 2/2 massive likely malignant pulmonary effusion - Almost complete white-out in R side of chest seen on X-ray with diffuse crackles noted throughout. - Maintaining adequate O2 sats in the low 90s on 4L NC currently but tachypneic and not moving air very well. Normally only requires 3L or even less per . - CV surg, Dr. Salinas, reportedly consulted in the ED to assess function of pleura-cath that was put in place by him during a previous admission. reports cath is working well but the rehab just ran out of bottles. Will touch base with Dr. Salinas and/or nurses to drain the effusion as tolerated by patient & continue drainage Q shift until <250mL output is obtained in one session. Highly suspect it is a malignant exudative effusion. - Continue supportive care with O2 via NC & will titrate PRN to maintain sats between 88-92%. #SIRS with an unknown source - Patient presented tachycardic into the 130s and was still in the 130s on exam s/p 1L of NS. Also had a WBC elevated at 26. R-sided white out on CXR which could be 2/2 an infectious effusion but highly suspect it is malignant given patients history. s/p IV vanc & cefepime before blood cultures were drawn but no urine or pulmonic effusion sample obtained yet. Can attempt UA sample once patient voids but will be s/p BS abx so may not be very reliable. Will add a procal to already drawn labs & continue to trend. - Will d/c BS abx for now pending repeat CXR in the AM s/p drainage of effusion. #Hyperkalemia - K 6.3 on CMP obtained on admission. EKG did not reveal peaked T waves & patient denies any chest pain. - Will continue mIVFs & repeat BMP @ ~1900 s/p IVFs. - Continue to trend w/ QD CMPs. #Oral candidiasis w/ odynophagia - Diffuse white plaques noted in mouth c/w thrush. Will start on magic mouthwash w/ nystatin QID until infection resolves. - ST consult. #Hyponatremia and hypochloremia - Likely 2/2 poor PO intake. Will start magic mouthwash and encourage PO intake & hydration. - Trend with QD CMPs #Normocytic anemia - Hgb of 11.4 on presentation. Will continue to trend. #Thrombocytopenia - Plts of 96 on presentation. Will continue to monitor. #Transaminitis - AST/ALT of 80/100 & alk phos of 697. Tbili WNLs @ 0.7. Diffuse TTP on palpation throughout. Start with a RUQ US and consider an abd/pelvis CT for possible intrabdominal source of infection. #Moderate volume depletion - No significant BREE but prerenal azotemia noted with BUN of 39. s/p 2L in ED & will continue mIVFs with NS @ 100mL/hr - Will continue mIVFs & encourage PO hydration as well. - Strict I&Os. #Physical deconditioning - PT/OT/PC/CM consults for recs & placement. Will encourage involving hospice in symptom management #Stage I ulcers on LEs - Consult WC. No s/s of infection. #Chronic a fib s/p pacemaker placement - In a fib on exam & EKG with RVR of 130. S/p o.5mg of IV Dig in the ED but still in the 130s on exam. - Likely 2/2 volume depletion is setting of possible infection as well. Will continue IVFs as outlined above & abx pending culture results. #HTN - Will resume home meds as tolerated by patient. #Hypothyroidism - Resume home meds. Abx: None Fluids: NS @ 100mL/hr Code status: DNR-DNI DVT PPx: Eliquis GI PPX: Famotidine IV BID Dispo: Will admit for close monitoring on telemetry overnight. Anticipated LOS at least 2 midnights pending clinical course. Addendum - Attending - Attending Attestation Date/Time: 06/19/19 8083 I personally evaluated the patient and discussed the management with Dr. Schmitt on the afternoon of 06/18/19. I agree with the History, Examination, Assessment and Plan documented above with any addition or exceptions noted below.
[2019-06-18] MEDS ORDERED: Digoxin 0.5 MG/2 ML AMP ONE (14:49)
[2019-06-18] MEDS ORDERED: Sodium Chloride 0.9% 1,000 ML IV SCH (15:43)
[2019-06-18] MEDS ORDERED: Ondansetron PF 4 MG/2 ML Vial IVP PRN (15:43)
[2019-06-18] MEDS ORDERED: Ondansetron ODT 4 MG TAB SL PRN (15:43)
[2019-06-18] MEDS ORDERED: Vancomycin HCl 1 GM in Premix Bag 1 BAG IVPB SCH (16:00)
[2019-06-18 16:11] VITALS: BMI 23.3
[2019-06-18] MEDS ORDERED: Aluminum & Magnesium Hydroxide 60 ML, diphenhydrAMINE 150 MG, Lidocaine 2% Viscous Solu... SSW PRN (17:06)
[2019-06-18] MEDS ORDERED: Bisacodyl 5 MG TAB PO PRN (17:08)
[2019-06-18] MEDS ORDERED: traMADol HCl 50 MG TAB PO PRN (17:08)
[2019-06-18] MEDS ORDERED: Meclizine HCl 12.5 MG TAB PO PRN (17:08)
[2019-06-18] MEDS ORDERED: Melatonin 3 MG TAB PO PRN (17:14)
[2019-06-18] MEDS: Sodium Chloride 0.9% 1,000 ML IV SCH ×2 (17:18→21:40)
--- NOTE | 2019-06-18 18:18 | CON ---
DATE OF CONSULTATION: HISTORY OF PRESENT ILLNESS: This is an unfortunate 78-year-old female with stage 4, end-stage adenocarcinoma of the lung with failure to thrive. She was recently hospitalized and PleurX catheter was placed for recurrent right pleural effusion. Post drainage, there was residual right lower lobe nonaeration. She has been in rehab, getting drainage every other day, which the estimates to be about 500 mL at a time. Due to thrush and poor oral intake, she has continued to decline and was admitted at this time with a large right pleural effusion. Drainage today yielded about a 1000 mL of clear yellow fluid. PHYSICAL EXAMINATION: GENERAL: She is awake, but poorly responsive, pale female, in no distress. SKIN: She has dressing over her drainage catheter. LUNGS: She has diminished breath sounds right and left with rhonchi. PLAN: At this time, would just suggest daily drainage to minimize the amount of fluid in the right chest cavity. Her prognosis is poor and although she has been begun on treatment, it does not appear that she is going to do so well over the technician terminal and repeater. Job ID: [id number]
[2019-06-18 19:57] LABS: Anion Gap 11 mmol/L (10-20); BUN (Urea Nitrogen) 38 mg/dL (9.8-20.1); Calc. Creatinine Clearance 58 mL/min (70-130); Calcium 8.9 mg/dL (7.8-10.44); Carbon Dioxide 27 mmol/L (23-31); Chloride 100 mmol/L (98-107); Estimated GFR-MDRD 81; Glucose 145 mg/dL (83-110); Potassium 5.5 mmol/L (3.5-5.1); Sodium 132 mmol/L (136-145)
[2019-06-18] MEDS ORDERED: HumaLOG 300 UNITS/3 ML VIAL SC PRN ×2 (21:20)
[2019-06-18] MEDS ORDERED: Dextrose 50% Abboject 50 ML SYRINGE SLOW IVP PRN (21:20)
[2019-06-18] MEDS ORDERED: Dextrose 5% in Water 1,000 ML IV PRN (21:20)
[2019-06-18] MEDS: Apixaban 2.5 MG TAB PO SCH (21:38)
[2019-06-18] MEDS: Famotidine/PF 20 mg/2ml Vial SLOW IVP SCH (21:38)
[2019-06-18] MEDS: Diltiazem HCl SR 60 mg Capsule PO SCH (21:38)
[2019-06-18] MEDS: Gabapentin 300 MG CAP PO SCH (21:38)
[2019-06-18] MEDS: Aluminum & Magnesium Hydroxide 60 ML, diphenhydrAMINE 150 MG, Lidocaine 2% Viscous Solu... SSW SCH (21:40)
[2019-06-18] MEDS: BIOTENE MOUTH SPRAY 44.3 ML PO SCH (21:41)
[2019-06-19 00:46] LABS: Bilirubin Negative (Negative); Blood, Urine Negative (Negative); Clarity Clear (Clear); Glucose, Urine (Dipstick) Normal (Negative); Leukocyte 25 Leu/uL (Negative); Nitrite Negative (Negative); Protein, Urine (Dipstick) 20 mg/dL (Neg-Trace); RBC/HPF 0-3 HPF (0-3); Urobilinogen Normal mg/dL (Less than 2); WBC/HPF 0-3 HPF (0-3)
[2019-06-19 00:48] LABS: Bacteria/HPF 1+ HPF (None Seen)
[2019-06-19 04:44] LABS: Band 8 % (5-11); Hemoglobin 10.2 g/dL (12.0-16.0); Hypochromia SLIGHT = 6-15 cells (100X) (0-5/hpf); Lymphocytes 5 % (21-51); MDiff Complete? YES; Mean Corpuscular HGB CONC 30.8 g/dL (32.0-36.0); Mean Corpuscular Hemoglobin 26.5 pg (27.0-31.0); Mean Corpuscular Volume 86.1 fL (78.0-98.0); Mean Platelet Volume 11.3 fL (7.4-10.4); Monocytes 6 % (0-10); Neutrophil 81 % (42-75); Platelet Count 89 thou/uL (130-400); Platelet Morphology Comment Appears Decreased; RBC Distribution Width 15.5 % (11.5-14.5); Red Blood Cell (RBC) Count 3.86 mill/uL (4.20-5.40); White Blood Cell (WBC) Count 26.8 thou/uL (4.8-10.8)
[2019-06-19 04:50] LABS: ALT (SGPT) 88 U/L (8-55); AST (SGOT) 48 U/L (5-34); Albumin 2.1 g/dL (3.4-4.8); Alkaline Phosphatase 534 U/L (40-110); Anion Gap 11 mmol/L (10-20); BUN (Urea Nitrogen) 36 mg/dL (9.8-20.1); Bilirubin, Total 0.3 mg/dL (0.2-1.2); Calc. Creatinine Clearance 65 mL/min (70-130); Calcium 8.9 mg/dL (7.8-10.44); Carbon Dioxide 26 mmol/L (23-31); Chloride 103 mmol/L (98-107); Estimated GFR-MDRD Greater than 90; Globulin 2.6 g/dL (2.4-3.5); Glucose 105 mg/dL (83-110); Potassium 5.2 mmol/L (3.5-5.1); Protein, Total 4.7 g/dL (6.0-8.3); Sodium 135 mmol/L (136-145)
[2019-06-19] MEDS ORDERED: Levothyroxine Sodium 50 MCG TAB PO SCH (06:00)
--- NOTE | 2019-06-19 07:16 | PDOC.FM ---
- Subjective Subjective: Patient had a runs of a fib in the 140s-160s which came down to the 120s following drainage of ~1L of pleural fluid via chest cath. Now in the 110s. Patient unable to speak on exam so ROS difficult to obtain. Nodded yet to pain with palpation of abdomen. - Objective MAR Reviewed: Yes Vital Signs & Weight: Vital Signs (12 hours) Temp Pulse Resp BP Pulse Ox 06/19/19 03:14 97.5 F L 94 18 90/51 L 96 06/18/19 23:59 117/56 L 06/18/19 20:00 98 06/18/19 19:25 98.4 F 113 H 16 96/64 100 Weight Weight 57.788 kg I&O: 06/18/19 06/19/19 06/20/19 06:59 06:59 06:59 Output Total 500 Balance -500 Result Diagrams: 06/19/19 04:05 06/19/19 04:05 Phys Exam - Physical Examination mild distress w/ tachypnea on exam but maintaining sats on 4L NC dry mucus membranes w/ white plaques still noted in oral cavity poor dentition Neck: supple Respiratory: no wheezing, no rales, no rhonchi, clear to auscultation bilateral only able to listen to B/L upper lung olivo which were clear s/p drainage of 1.2L since ~0500 this AM Cardiovascular: no significant murmur irregularly irregular rhythm with tachycardia Gastrointestinal: soft, no distention TTP throughout but no rebound or guarding Musculoskeletal: edema present B/L pitting edema in LEs, R>L Neurological: non-focal, moves all 4 limbs Deviation from normal: difficult to assess as patient unable to talk 2/2 dry mouth & weakness Deviation from normal: scattered stage I pressure sores & ruptured & intact bullae on B/L LEs -: (See WC photos) Dx/Plan (1) Diabetes mellitus type 2 in nonobese Code(s): E11.9 - TYPE 2 DIABETES MELLITUS WITHOUT COMPLICATIONS Status: Acute (2) HTN (hypertension) Code(s): I10 - ESSENTIAL (PRIMARY) HYPERTENSION Status: Acute (3) Hyperkalemia Code(s): E87.5 - HYPERKALEMIA Status: Acute (4) Malignant pleural effusion Code(s): J91.0 - MALIGNANT PLEURAL EFFUSION Status: Acute (5) Acute respiratory failure with hypoxia Code(s): J96.01 - ACUTE RESPIRATORY FAILURE WITH HYPOXIA Status: Acute (6) Hyponatremia Code(s): E87.1 - HYPO-OSMOLALITY AND HYPONATREMIA Status: Acute (7) Non-small cell lung cancer Code(s): C34.90 - MALIGNANT NEOPLASM OF UNSP PART OF UNSP BRONCHUS OR LUNG Status: Acute (8) Physical deconditioning Code(s): R53.81 - OTHER MALAISE Status: Acute (9) Thrombocytopenia Code(s): D69.6 - THROMBOCYTOPENIA, UNSPECIFIED Status: Acute (10) Atrial fibrillation, persistent Code(s): I48.1 - PERSISTENT ATRIAL FIBRILLATION * DO NOT USE * Status: Chronic - Plan Plan: Acute Hypoxic Respiratory Failure 2/2 Malignant Pleural Effusion - On 3L O2 chronically, now maintaining sats on 4L - White out pleural effusion seen on CXR on admission & repeat done @ ~0400 BEFORE ~1.2L was drained by nurse & Dr. Salinas. - Will access pleural cath q-shift as directed per Dr. Salinas. Will touch base to see how much he is comfortable having drained per session since >1L has already been taken off today. - Repeat CXR again tomorrow morning AFTER chest has been drained. SIRS - No source yet identified. Received vanc and cefepime in ED. - UA obtained overnight & notable for 10 ketones, 25 LE, & 1+ bacteria but 4-6 squams also present so not very reliable for Cx. - 1/2 Blood cultures + for gram + cocci, likely contaminant. Procal indeterminant @ 0.43. Will continue to trend. - CXR obtained this AM was done at ~0400 and patient had another liter drained from chest @ ~0640 after xray was done. Thus CXR appeared essentially unchanged or slightly worse than CXR on admission. Unable to see any focal consolidation that could explain her elevated WBC 2/2 persistent effusion. Plan for repeat tomorrow AM AFTER drainage of fluid. Transaminitis, improving - AST/ALT of 80/100 & alk phos of 697 on admission & all downtrending this AM. Tbili still WNLs. - RUQ abdominal US done this AM. Read pending. If no significant findings identified will consider CT if still experiencing sx. Hyperkalemia, improving - K+: 6.3 on admission, no EKG changes or sx noted. Down to 5.2 this AM after IVFs overnight. Continue to trend. Oral candidiasis w/ odynophagia - Magic mouth wash QID - ST consulted on admission Hyponatremia and hypochloremia - acute on chronic, improving - Likely 2/2 poor PO intake. Will start magic mouthwash and encourage PO intake & hydration but will continue IVFs while not tolerating PO - Trend with QD CMPs Anemia and thrombocytopenia - Pt currently receiving chemo and extremely weak & malnourished - Will continue to trend at this point as not at critical levels Stage I ulcers & ruptured & intact bullae on LEs - WC on board. No s/s of infection in these areas. Chronic a fib s/p pacemaker placement w/ transient RVR - Suspect RVR 2/2 volume depletion and possible unknown infection vs. just stress her body is under with stage IV cancer w/ effussion & associated tachypnea and essentially no PO intake. - 0.5mg of IV Dig in the ED. Resuming home dig & dilt dosing while inpatient & will continue telemetry monitoring. HTN - Will hold home meds as patient has been hypotensive since admission. Hypothyroidism - Resume home meds. DMII - Holding metformin while not tolerating PO. mild SSI PRN. Fluids: D5NS @ 75mL/hr Code status: DNR-DNI DVT PPx: Eliquis GI PPX: Famotidine IV BID Dispo: Will continue close monitoring on telemetry & get hopsice on board today as prognosis remains poor.
--- NOTE | 2019-06-19 07:57 | ULT ---
Sonogram right upper quadrant HISTORY: Right upper quadrant pain. Abnormal liver function tests. FINDINGS: Gallbladder surgically absent. Common duct is 0.4 cm. Liver is diffusely echogenic without focal mass or intrahepatic biliary dilatation. No free fluid. Fluid is evident within the partially visualized right pleural space. IMPRESSION: Status post cholecystectomy. No evidence of biliary obstruction. Hepatosteatosis. Right pleural effusion.
--- NOTE | 2019-06-19 08:13 | RAD ---
XR Chest 1 View Portable History: Pleural effusion Comparison: Radiograph prior day Findings: The examination the upright is a prior exam states, the right layering pleural effusion has increased in size with apical capping. Minimal aerated lung in the right lung apex. Left lung is relatively clear. Dual-lead pacer is similar. Right-sided thoracostomy tube tip is similar. Port catheter tip sits at the inferior SVC. Impression: Progressive enlargement right large layering pleural effusion. Underlying parenchymal mas s cannot be well evaluated.
[2019-06-19] MEDS: Apixaban 2.5 MG TAB PO SCH ×2 (08:37→21:22)
[2019-06-19] MEDS: Diltiazem HCl SR 60 mg Capsule PO SCH ×4 (08:38→21:06)
[2019-06-19] MEDS: Aluminum & Magnesium Hydroxide 60 ML, diphenhydrAMINE 150 MG, Lidocaine 2% Viscous Solu... SSW SCH ×5 (08:42→21:09)
[2019-06-19] MEDS: Famotidine/PF 20 mg/2ml Vial SLOW IVP SCH ×2 (08:51→21:06)
[2019-06-19] MEDS ORDERED: Digoxin 0.125 MG TAB PO SCH (09:00)
[2019-06-19] MEDS ORDERED: Polyethylene Glycol 3350 17 GM Packet PO SCH (09:00)
[2019-06-19] MEDS ORDERED: Dextrose 5 % And 0.9 % NaCl 1,000 ML IV SCH (09:00)
[2019-06-19] MEDS: BIOTENE MOUTH SPRAY 44.3 ML PO SCH ×2 (11:59→21:23)
--- NOTE | 2019-06-19 12:47 | RAD ---
CHEST 1 VIEW: Date: 06/19/2019 HISTORY: Dyspnea. Hypoxia. COMPARISON: Radiograph dated 06/19/2019. FINDINGS: There is interval size decrease in right layering pleural effusion. Left lung is mildly hyperinflated . Port catheter tip inferior SVC. Rightward displacement of the mediastinum. Right hilar mass. IMPRESSION: No pneumothorax with size decreased right layering pleural effusion. POS: OFF
[2019-06-19 14:49] LABS: Anion Gap 11 mmol/L (10-20); BUN (Urea Nitrogen) 38 mg/dL (9.8-20.1); Calc. Creatinine Clearance 60 mL/min (70-130); Calcium 9.2 mg/dL (7.8-10.44); Carbon Dioxide 28 mmol/L (23-31); Chloride 104 mmol/L (98-107); Estimated GFR-MDRD 83; Glucose 137 mg/dL (83-110); Potassium 5.5 mmol/L (3.5-5.1); Sodium 137 mmol/L (136-145)
[2019-06-19] MEDS ORDERED: Lactated Ringer's 1,000 ML IV SCH (18:15)
[2019-06-19] MEDS: Gabapentin 300 MG CAP PO SCH (21:06)
[2019-06-19] MEDS ORDERED: Scopolamine 1.5 mg/72 hour Patch TOP PRN (21:53)
[2019-06-19 23:47] VITALS: TEMP 97.3
[2019-06-20 04:17] VITALS: BP 71/30
--- NOTE | 2019-06-20 04:43 | PDOC.BPN ---
- Brief Progress Note Progress Note Paged by Charge Nurse, Shereen at 04:34. Patient went into asystole and confirmed at 04:24 by RN. Physical Exam: HEENT: pupils fixed and dilated Cardio: No pulse, no auscultated heart sounds Resp: No spontaneous respirations Neuro: No withdrawal to painful stimuli TOD: 06/20/2019, confirmed at 04:40. The family does not request autopsy. Orders: 1. TOD 2. Ok to remove all lines 3. Ok to release to centerpuncher
--- NOTE | 2019-06-22 12:32 | DIS ---
DATE OF ADMISSION: 06/18/2019 DATE OF DISCHARGE: 06/20/2019 RESIDENT: Dr. Kathy Bernard. DATE OF : 06/20/2019. TIME OF : 439. CAUSE OF : Stage IV metastatic lung adenocarcinoma SECONDARY DIAGNOSES: 1. Recurrent pleural effusion. 2. Hypertension. 3. Hypothyroidism. 4. Chronic atrial fibrillation, status post pacemaker placement. 5. Anemia and thrombocytopenia. 6. Hyponatremia. 7. Hypochloremia. 8. Hyperkalemia. 9. Transaminitis. 10. Oral candidiasis with odynophagia. 11. History of tobacco use. HISTORY OF PRESENT ILLNESS AND HOSPITAL COURSE: This 78-year-old female with past medical history of stage IV adenocarcinoma of the lung, atrial fibrillation, hypertension, and hypothyroidism, presented to the emergency department with her with multiple complaints. She had recurrent pleural effusions which were routinely drained from her PleurX catheter, which was in place on admission. The patient also had decreased oral intake and had developed oral thrush and pain with swallowing. She met SIRS criteria. The patient was tachypneic during her hospitalization. Her pleural effusions were drained through the PleurX catheter daily. No source had yet been identified for SIRS criteria. On the morning of 06/20/2019, the patient started being paced by her pacemaker and then went into asystole. Physicians were called to the bedside and pronounced at 4:40. Kathy Bernard MD PGY1 Job ID: [id number] MTDD
--- NOTE | 2019-06-24 22:34 | PQF ---
[employer] NikkyJERRIYASH OROPEZA VIVIAN CLARK MD [id number] CLINICAL DOCUMENTATION CLARIFICATION FORM: POST DISCHARGE Addendum to original discharge summary date: ____ Late entry note date: __ DATE: 06/24/2019 ATTN:VIVIAN CLARK MD Please exercise your independent, professional judgment in responding to the clarification form. Clinical indicators are provided on the bottom of this form for your review Please check appropriate box(s) to clarify if the following diagnosis has been ruled in or ruled out: ____SEPSIS (CDI/Coding list diagnosis here) [ ] Ruled in diagnosis [ ] Continue to treat [ ] Resolved [ ] Ruled out diagnosis [ ] Cannot rule out diagnosis [ ] Other diagnosis [ ] Unable to determine In addition, please specify: Present on Admission (POA): [ ] Yes [ ] No [ ] Unable to determine For continuity of documentation, please document condition throughout progress notes and discharge summary. Thank You. CLINICAL INDICATORS - SIGNS / SYMPTOMS / LABS SIRS with no source identified - Documented in Family Medicine PNs on 06/19 by Trent Yu 05/28 blood culture + for gram + cocci, likely contaminant - Documented in Family Medicine PNs on 06/19 by Trent Yu Procalcitonin indeterminant @ 0.43 we will continue to trend - Documented in Family Medicine PNs on 06/19 by Trent Yu Elevated WBC 26.4 on 06/18 and 26.8 on 06/19 - Documented in Laboratory Pulse rate 118 on 06/18, 115 on 06/19 and 105 on 06/19 - Documented in Vital Signs Respiration rate 22 on 06/18 and 32 on 06/19 - Documented in Vital Signs Sepsis - Documented in ED report pg#[id number] RISK FACTORS Acute hypoxic Respiratory failure - Documented in Family Medicine PNs on 06/19 by Trent Yu malignant Pleural effusion - Documented in Family Medicine PNs on 06/19 by Trent Yu No source had yet been identified for SIRS criteria - Documented in DS on by Marco Antonio smith MD Oral candidiasis with odynophagia - Documented in DS on 06/20 by Marco Antonio smith MD TREATMENTS Received Vancomycin and Cefepime in ED - Documented in Family Medicine PNs on 06/19 by Trent Yu Vancomycin HCL 1gm - Documented in Medication report (This form is maintained as a part of the permanent medical record) 2014 [employer]. All Rights Reserved [email or web address] [phone] Please assign to resident physician for completion. MTDD
== END 2019-06-20 07:40 | disposition expired | DRG 189 ==
LOC: ERS 12:06 → 2NO 14:08
PROVIDERS: ADMIT Family Medicine; ATTEND Family Medicine
PROC: 0W9930Z Drainage of Right Pleural Cavity with Drainage Device, Percutaneous Approach (ICD-10-PCS; principal; 2019-06-18)
DX: J96.01 Acute respiratory failure with hypoxia (principal); C34.90 Malignant neoplasm of unspecified part of unspecified bronchus or lung; J91.0 Malignant pleural effusion; E87.1 Hypo-osmolality and hyponatremia; B37.0 Candidal stomatitis; R65.10 Systemic inflammatory response syndrome (SIRS) of non-infectious origin without acute organ dysfunction; E03.9 Hypothyroidism, unspecified; Z79.84 Long term (current) use of oral hypoglycemic drugs; Z90.49 Acquired absence of other specified parts of digestive tract; Z95.0 Presence of cardiac pacemaker; Z98.51 Tubal ligation status; E87.5 Hyperkalemia; R53.1 Weakness; D69.6 Thrombocytopenia, unspecified; C80.1 Malignant (primary) neoplasm, unspecified; E87.8 Other disorders of electrolyte and fluid balance, not elsewhere classified; Z66 Do not resuscitate; L89.891 Pressure ulcer of other site, stage 1; E11.9 Type 2 diabetes mellitus without complications; I11.0 Hypertensive heart disease with heart failure; I50.9 Heart failure, unspecified; Z87.891 Personal history of nicotine dependence; I46.9 Cardiac arrest, cause unspecified; J44.9 Chronic obstructive pulmonary disease, unspecified
CPT/HCPCS: 36415; 36416; 71045; 76705; 80053; 81001; 82248; 82550; 83605; 83615; 84100; 84145; 84550; 85025; 87040; 87077; 87149; 87186; 93005; 94640; 96361; 96365; 96375; J0692; J1160; J7620; Q0163; S0028